=== PATIENT | male | born 1965 | race Caucasian/White ===

== ENCOUNTER 2017-12-07 10:52 | Inpatient (IN) | payer OTHER ==
[2017-12-07 11:05] VITALS: BMI 26.6
--- NOTE | 2017-12-07 11:07 | PDOC ---
History of Present Illness - General History Source: Patient, Family Exam Limitations: Language Barrier (Niece as loader helper sorting yard ) - History of Present Illness Initial Comments: 12/07/17 12:10 The patient is a 52 year old male with significant past medical history of tobacco smoking, pre-heart attack (Treated in in 2017) and CHF is brought to the ED accompanied by family members for evaluation of three days with progressive dry cough and SOB. As per the patients niece acting as a senior technical project manager, the patient reports the symptoms feels similar to his symptoms during his experience with pre heart attack last year. The patient reports the symptoms are aggravated when lying flat, walking short distances, and with the cold weather. The patient reports the sensation of drowning when lying flat. [place] . The patients family states he will be establishing care with Dr. Hill in about 2 weeks. The patient denies Chest pain, fever, chills. The patient denies nausea, vomiting, diaphoresis, abdominal pain, any frequency or urgency in urination, hematuria. The patient denies headache, recent illness, or recent trauma. Allergies: NKDA Social Hx: former 1ppd smoker, now 3 cigarettes daily. Meds: 75mg clopidogrel and 81mg aspirin <Odette Arias - Last Filed: 12/07/17 12:29> <Blessing Lovett - Last Filed: 12/07/17 13:47> - General Chief Complaint: Shortness of Breath Stated Complaint: DIFFICULTY BREATHING Time Seen by Provider: 12/07/17 11:07 Past History <Odette Arias - Last Filed: 12/07/17 12:29> - Past Medical History CVA: Yes (AFFECTED PTS MEMORY&BALANCE) COPD: No HTN: Yes Other medical history: PULMONARY EDEMA - Suicide/Smoking/Psychosocial Hx Smoking History: Current every day smoker Have you smoked in the past 12 months: Yes Number of Cigarettes Smoked Daily: 3 Information on smoking cessation initiated: Yes 'Breaking Loose' booklet given: 12/07/17 <Blessing Lovett - Last Filed: 12/07/17 13:47> - Past Medical History Allergies/Adverse Reactions: Allergies Allergy/AdvReac Type Severity Reaction Status Date / Time No Known Allergies Allergy Verified 12/07/17 10:59 Home Medications: Ambulatory Orders Aspirin [ASA -] 81 mg PO DAILY 12/07/17 Clopidogrel Bisulfate [Plavix] 75 mg PO DAILY 12/07/17 Review of Systems - Review of Systems Able to Perform ROS?: Yes Comments:: 12/07/17 12:10 GENERAL/CONSTITUTIONAL: No fever or chills. No weakness. HEAD, EYES, EARS, NOSE AND THROAT: No change in vision. No ear pain or discharge. No sore throat. CARDIOVASCULAR: (+) SOB. No chest pain RESPIRATORY: (+) cough and orthopnea and dyspnea on exertion. No wheezing, or hemoptysis. GASTROINTESTINAL: No nausea, vomiting, diarrhea or constipation. GENITOURINARY: No dysuria, frequency, or change in urination. MUSCULOSKELETAL: No joint or muscle swelling or pain. No neck or back pain. SKIN: No rash NEUROLOGIC: No headache, vertigo, loss of consciousness, or change in strength/ sensation. ENDOCRINE: No increased thirst. No abnormal weight change. HEMATOLOGIC/LYMPHATIC: No anemia, easy bleeding, or history of blood clots. ALLERGIC/IMMUNOLOGIC: No hives or skin allergy. <Odette Arias - Last Filed: 12/07/17 12:29> *Physical Exam - Vital Signs Last Vital Signs Temp Pulse Resp BP Pulse Ox 97.9 F 50 L 23 120/87 95 12/07/17 10:59 12/07/17 10:59 12/07/17 10:59 12/07/17 10:59 12/07/17 11:57 - Physical Exam Comments: 12/07/17 12:10 GENERAL: Awake, alert, and fully oriented, Mild acute distress HEAD: No signs of trauma EYES: PERRLA, EOMI, sclera anicteric, conjunctiva clear ENT: Auricles normal inspection, hearing grossly normal, nares patent, oropharynx clear without exudates. Moist mucosa NECK: Normal ROM, supple, no lymphadenopathy, JVD, or masses LUNGS: (+) 3-4 word sentence. Increased work of breathing. Breath sounds equal, clear to auscultation bilaterally. No wheezes, and no crackles HEART: Regular rate and rhythm, normal S1 and S2, no murmurs, rubs or gallops ABDOMEN: (+) obese. Soft, nontender, normoactive bowel sounds. No guarding, no rebound. No masses EXTREMITIES: (+) 1+ pitting edema b/l LE at mid calf.. Normal range of motion. No clubbing or cyanosis. No cords, erythema, or tenderness NEUROLOGICAL: Cranial nerves II through XII grossly intact. Normal speech. SKIN: Warm, Dry, normal turgor, no rashes or lesions noted. <Odette Arias - Last Filed: 12/07/17 12:29> - Vital Signs Last Vital Signs Temp Pulse Resp BP Pulse Ox 97.9 F 50 L 23 120/87 97 12/07/17 10:59 12/07/17 10:59 12/07/17 10:59 12/07/17 10:59 12/07/17 10:59 <Blessing Lovett - Last Filed: 12/07/17 13:47> Heart Score/ECG Review - ECG Intrepretation Comment:: 12/07/17 12:29 The EKG was read by Dr. Lovett at 12:13 PM Sinus rhythm with frequent premature ventricular complexes Vent rate: 89 bpm [place] interval: 194 ms QTc: 484 ms <Odette Arias - Last Filed: 12/07/17 12:29> ED Treatment Course - LABORATORY CBC & Chemistry Diagram: 12/07/17 11:30 12/07/17 11:30 <Odette Arias - Last Filed: 12/07/17 12:29> - LABORATORY CBC & Chemistry Diagram: 12/07/17 11:30 12/07/17 11:30 <Blessing Lovett - Last Filed: 12/07/17 13:47> Medical Decision Making - Medical Decision Making 12/07/17 12:18 Pt presents to the ED complaining of a three day history of progressively worsening shortness of breath, BLACK and orthopnea. History of CHF diagnosed in the DR, lost to medical follow up. Patient is visibly short of breath and is edematous, but is normotensive. Differential includes CHF exacerbation, less likely PNA, COPD exacerbation, ACS. Will check labs and CXR, likely treat with [place] admit for treatment and work up of acute shortness of breath. <Blessing Lovett - Last Filed: 12/07/17 13:47> *DC/Admit/Observation/Transfer - Attestations Scribe Attestion: 12/07/17 12:11 Documentation prepared by Odette Arias, acting as medical terminologist for Blessing Lovett MD. <Odette Arias - Last Filed: 12/07/17 12:29> - Discharge Dispostion Admit: Yes <Blessing Lovett - Last Filed: 12/07/17 13:47> Diagnosis at time of Disposition: Congestive heart failure (CHF) Qualifiers: Heart failure type: unspecified Heart failure chronicity: acute on chronic Qualified Code(s): I50.9 - Heart failure, unspecified - Discharge Dispostion Condition at time of disposition: Good - Referrals Referrals: Bebeto Leon MD [Primary Care Provider] - - Patient Instructions - Post Discharge Activity
[2017-12-07 11:52] LABS: BASO % 0.8 % (0-2.0); EOS % 0.5 % (0-4.5); HEMATOCRIT 36.5 % (35.4-49); HEMOGLOBIN 11.9 GM/dL (11.7-16.9); LYMPH % 27.3 % (8-40); MCH 27.2 pg (25.7-33.7); MCHC 32.6 g/dl (32.0-35.9); MEAN CELL VOLUME 83.6 fl (80-96); MONO % 12.7 % (3.8-10.2); NEUT % 58.7 % (42.8-82.8); PLATELET COUNT 223 K/MM3 (134-434); RBC 4.36 M/mm3 (4.00-5.60); RDW 15.6 % (11.9-15.9); WHITE BLOOD COUNT 5.9 K/mm3 (4.0-10.0)
[2017-12-07 12:45] LABS: ALBUMIN 3.1 g/dl (3.4-5.0); ANION GAP 6 (8-16); BILIRUBIN,TOTAL 0.7 mg/dL (0.2-1.0); BLOOD UREA NITROGEN 12 mg/dL (7-18); CALCIUM 8.8 mg/dL (8.5-10.1); CHLORIDE 103 mmol/L (98-107); CO2 28 mmol/L (21-32); GLUCOSE,RANDOM 95 mg/dL (74-106); POTASSIUM 4.6 mmol/L (3.5-5.1); SGOT/AST 25 U/L (15-37); SGPT/ALT 36 U/L (12-78); SODIUM 137 mmol/L (136-145); TOT PROT 8.4 g/dl (6.4-8.2)
[2017-12-07 12:48] LABS: ALK PHOS 73 U/L (45-117); N-TERMINAL BNP 2245.41 pg/ml (5-125)
[2017-12-07] MEDS ORDERED: FUROSEMIDE 40 MG/4 ML INJECTABLE VIAL IVPUSH ONE ×3 (12:58→18:00)
[2017-12-07] MEDS ORDERED: FUROSEMIDE 40 MG/4 ML INJECTABLE VIAL ONE (13:15)
--- NOTE | 2017-12-07 13:17 | HP ---
Admitting History and Physical - Primary Care Physician PCP: Bebeto Leon - Admission Chief Complaint: sob, cough, le edema History of Present Illness: This is a 52 year old male with HTN, active smoker, history of pulmonary edema and ?LA requiring coding, CVA x2 05/2016, 05/2017 in [facility], presented to the ED after 3 days of worsening sob, cough and lower ext edema. He has not had an extra salt in his diet or increased water intake. No sick person contacts. He was scheduled to see his pcp later next week. Currently, he denies chest pain , palpitations, abdominal pain, n/v. He appears mildly tachypneic and has a GRISSOM. 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: CVA Cardiovascular: Yes: HTN, LA Pulmonary: Yes: Other (pulmonary edema) - Smoking History Smoking history: Current every day smoker Have you smoked in the past 12 months: Yes Aproximately how many cigarettes per day: 3 - Alcohol/Substance Use Hx Alcohol Use: No - Social History Usual Living Arrangement: Yes: With Spouse ADL: Independent Home Medications - Allergies Allergies/Adverse Reactions: Allergies Allergy/AdvReac Type Severity Reaction Status Date / Time No Known Allergies Allergy Verified 12/07/17 10:59 - Home Medications Home Medications: Ambulatory Orders Aspirin [ASA -] 81 mg PO DAILY 12/07/17 Clopidogrel Bisulfate [Plavix] 75 mg PO DAILY 12/07/17 Review of Systems - Review of Systems Constitutional: reports: No Symptoms Eyes: reports: No Symptoms HENT: reports: No Symptoms Neck: reports: No Symptoms Cardiovascular: reports: Shortness of Breath Respiratory: reports: Cough, SOB, SOB on Exertion Gastrointestinal: reports: No Symptoms Genitourinary: reports: No Symptoms Musculoskeletal: reports: No Symptoms Integumentary: reports: No Symptoms Neurological: reports: No Symptoms Endocrine: reports: No Symptoms Hematology/Lymphatic: reports: No Symptoms Psychiatric: reports: No Symptoms Physical Examination Vital Signs: Vital Signs Temperature 97.9 F 12/07/17 10:59 Pulse Rate 89 12/07/17 12:14 Respiratory Rate 26 H 12/07/17 12:14 Blood Pressure 129/77 12/07/17 12:14 O2 Sat by Pulse Oximetry (%) 100 12/07/17 12:14 Constitutional: Yes: Well Nourished Eyes: Yes: Conjunctiva Clear HENT: Yes: Atraumatic Cardiovascular: Yes: Regular Rate and Rhythm, S1, S2 Respiratory: Yes: Cough, Diminished, Rhonchi (L base) Gastrointestinal: Yes: Normal Bowel Sounds, Soft Musculoskeletal: Yes: WNL Extremities: Yes: WNL Edema: Yes Edema: LLE: 2+, RLE: 2+ Peripheral Pulses WNL: Yes Neurological: Yes: Alert, Oriented, Cran Nerves II-XII Intact Labs: CBC, BMP 12/07/17 11:30 12/07/17 11:30 Imaging - Results Chest X-ray: Report Reviewed (congestive changes), Image Reviewed Problem List - Problems (1) Congestive heart failure (CHF) Code(s): I50.9 - HEART FAILURE, UNSPECIFIED Qualifiers: Heart failure type: unspecified Heart failure chronicity: acute on chronic Qualified Code(s): I50.9 - Heart failure, unspecified Assessment/Plan Assessment: 52 year old male with worsening sob and cough x3 days Plan: 1. Acute CHF exacerbation - Lasix 40mg IV in ED - Give additional 40meq @ 1800 - Start lasix 40mg daily ivp - Supplemental o2 spo2 goal >92% - Daily weights - Strict I'o's - ECHO - Cardiology consult 2. ? LA in past, presumed CAD - Plavix - ASA 3. SOB - Likely due to chf exacerbation - Will hold off on steroids and antibiotics at this time, no leukocytosis no fever 4. DVT - Lovenox sq Visit type - Emergency Visit Emergency Visit: Yes ED Registration Date: 12/07/17 Care time: The patient presented to the Emergency Department on the above date and was hospitalized for further evaluation of their emergent condition. - New Patient This patient is new to me today: Yes Date on this admission: 12/07/17 - Critical Care Critical Care patient: No Hospitalist Screening - Colonoscopy Questionnaire Colonoscopy Questionnaire: Colonoscopy Questionnaire - Patient: 50 - 75 years old and never had a screening colonoscopy: Unknown History of colon or rectal polyps, or CA: Unknown History of IBD, Crohn's disease or UC: Unknown History of abdominal radiation therapy as a child: Unknown - Relative: 1 with colon or rectal CA, or polyps at age 60 or younger: Unknown Colon or rectal CA diagnosed at age 45 or younger: Unknown Multiple relatives with colon or rectal CA: Unknown - Outcome: Screening Result: Negative Screen
--- NOTE | 2017-12-07 13:18 | EKG ---
Test Reason : Blood Pressure : / mmHG Vent. Rate : 089 BPM Atrial Rate : 089 BPM P-R Int : 194 ms QRS Dur : 114 ms QT Int : 398 ms P-R-T Axes : 052 -03 076 degrees QTc Int : 484 ms SINUS RHYTHM WITH FREQUENT PREMATURE VENTRICULAR COMPLEXES LEFT ATRIAL ENLARGEMENT POSSIBLE INFERIOR INFARCT , AGE UNDETERMINED ANTEROLATERAL INFARCT , AGE UNDETERMINED ABNORMAL ECG NO PREVIOUS ECGS AVAILABLE Confirmed by CASE ARTEAGA, BRAYDEN ([id number]) on 12/07/2017 1:18:03 PM Referred By: Confirmed By:BRAYDEN WILLOUGHBY MD
[2017-12-07] MEDS ORDERED: AZITHROMYCIN IVPB 500 MG in DEXTROSE 5%-WATER - 250 ML IVPB ONE (14:40)
[2017-12-07] MEDS ORDERED: methylPREDNISolone NA SUCC 125 MG/2 ML VIAL IVPB SCH (14:45)
[2017-12-07] MEDS: ALBUTEROL SO4 2.5/IPRATROPIUM 0.5 INH SOL 3 ML VIAL.NEB. NEB PRN ×2 (15:45→20:54)
[2017-12-07 18:25] LABS: URINE APPEARANCE CLEAR; URINE BILIRUBIN NEGATIVE (<2.0 mg/dL); URINE BLOOD NEGATIVE (NEGATIVE); URINE COLOR COLORLESS; URINE GLUCOSE (UA) NEGATIVE (NEGATIVE); URINE KETONE NEGATIVE (NEGATIVE); URINE LEUK ESTERASE NEGATIVE (NEGATIVE); URINE NITRITE NEGATIVE (NEGATIVE); URINE PROTEIN NEGATIVE (NEGATIVE); URINE UROBILINOGEN NEGATIVE mg/dL (0.2-1.0)
[2017-12-08] MEDS: ALBUTEROL SO4 2.5/IPRATROPIUM 0.5 INH SOL 3 ML VIAL.NEB. NEB PRN ×2 (05:52→20:50)
[2017-12-08] MEDS ORDERED: FUROSEMIDE 40 MG/4 ML INJECTABLE VIAL IVPUSH SCH ×2 (06:00→10:00)
[2017-12-08 07:59] LABS: ALBUMIN 3.1 g/dl (3.4-5.0); ANION GAP 7 (8-16); BLOOD UREA NITROGEN 18 mg/dL (7-18); CALCIUM 8.7 mg/dL (8.5-10.1); CHLORIDE 102 mmol/L (98-107); CHOLESTEROL 138 mg/dL (50-200); CO2 28 mmol/L (21-32); GLUCOSE,RANDOM 92 mg/dL (74-106); LDL CHOLESTEROL (ONLY SJRH) 109 mg/dL (5-100); MAGNESIUM 2.1 mg/dL (1.8-2.4); PHOSPHOROUS 4.7 mg/dL (2.5-4.9); POTASSIUM 3.9 mmol/L (3.5-5.1); SGOT/AST 23 U/L (15-37); SGPT/ALT 37 U/L (12-78); SODIUM 137 mmol/L (136-145); TRIGLYCERIDES 59 mg/dL (35-160)
[2017-12-08 08:01] LABS: ALK PHOS 78 U/L (45-117); BILIRUBIN,TOTAL 0.9 mg/dL (0.2-1.0); CREATININE 1.1 mg/dL (0.7-1.3); HDL CHOLESTEROL 26 mg/dL (40-60); TOT PROT 8.3 g/dl (6.4-8.2)
[2017-12-08 08:50] LABS: BASO % 0.8 % (0-2.0); EOS % 1.1 % (0-4.5); HEMATOCRIT 38.2 % (35.4-49); HEMOGLOBIN 12.4 GM/dL (11.7-16.9); LYMPH % 22.6 % (8-40); MCH 27.1 pg (25.7-33.7); MCHC 32.5 g/dl (32.0-35.9); MEAN CELL VOLUME 83.6 fl (80-96); MEAN PLT VOLUME 8.5 fl (7.5-11.1); MONO % 13.8 % (3.8-10.2); NEUT % 61.7 % (42.8-82.8); PLATELET COUNT 236 K/MM3 (134-434); RBC 4.57 M/mm3 (4.00-5.60); RDW 15.7 % (11.9-15.9); WHITE BLOOD COUNT 6.7 K/mm3 (4.0-10.0)
--- NOTE | 2017-12-08 09:42 | PN ---
Physical Exam: SUBJECTIVE: Patient seen and examined. He feels better, still with cough. Breathing improved, stable today. OBJECTIVE: Vital Signs Period Temp Pulse Resp BP Sys/Jones Pulse Ox Last 24 Hr 97.4 F-99.4 F 50-99 18-26 119-141/58-87 95-100 PE Neuro: alert, awake, cn 2-12intact Pulm: + cough, l base crackles + NC CV: s1 s2 rrr no mrg Abd: s nt nd + bs Ext: + 1 le edema, warm Laboratory Results - last 24 hr 12/07/17 12/08/17 12/08/17 17:00 06:00 06:00 WBC 6.7 RBC 4.57 Hgb 12.4 Hct 38.2 MCV 83.6 MCH 27.1 MCHC 32.5 RDW 15.7 Plt Count 236 MPV 8.5 Neutrophils % 61.7 Lymphocytes % 22.6 Monocytes % 13.8 H Eosinophils % 1.1 D Basophils % 0.8 Sodium 137 Potassium 3.9 Chloride 102 Carbon Dioxide 28 Anion Gap 7 L BUN 18 D Creatinine 1.1 Creat Clearance w eGFR > 60 Random Glucose 92 Hemoglobin A1c % Calcium 8.7 Phosphorus 4.7 Magnesium 2.1 Total Bilirubin 0.9 D AST 23 ALT 37 Alkaline Phosphatase 78 Creatine Kinase Creatine Kinase Index CK-MB (CK-2) Troponin I B-Natriuretic Peptide Total Protein 8.3 H Albumin 3.1 L Triglycerides 59 Cholesterol 138 Total LDL Cholesterol 109 H HDL Cholesterol 26 L Urine Color Colorless Urine Appearance Clear Urine pH 7.0 Ur Specific [place] 1.005 Urine Protein Negative Urine Glucose (UA) Negative Urine Ketones Negative Urine Blood Negative Urine Nitrite Negative Urine Bilirubin Negative Urine Urobilinogen Negative Ur Leukocyte Esterase Negative 12/08/17 06:00 Hemoglobin A1c % 6.6 H Active Medications Generic Name Dose Route Start Last Admin Trade Name Freq PRN Reason Stop Dose Admin Acetaminophen 650 mg 12/07/17 15:18 Tylenol - PO Q4H PRN PAIN LEVEL 4 - 6 Albuterol/Ipratropium 1 amp 12/07/17 15:18 12/08/17 05:52 Duoneb - NEB 1 amp Q4H PRN Administration SHORTNESS OF BREATH Aspirin 81 mg 12/08/17 10:00 Asa - PO DAILY [facility] Clopidogrel Bisulfate 75 mg 12/08/17 10:00 Plavix - PO DAILY [facility] Enoxaparin Sodium 40 mg 12/08/17 10:00 Lovenox - SQ DAILY [facility] Assessment: 52 year old male with worsening sob and cough x3 days Plan: 1. Acute CHF exacerbation - Weight down - Increase lasix 40mg BID - Supplemental o2 spo2 goal >92% - Daily weights - Strict I'o's - ECHO - Cardiology consult 2. ? LA in past, presumed CAD - Plavix - ASA - Trops x2 flat 3. SOB/cough - Likely due to chf exacerbation - Will hold off on steroids and antibiotics at this time, no leukocytosis no fever - Duonebs 4. Hx of CVA - ASA, plavix 5. HLD - Start lipitor 20mg HS 6. DVT - Lovenox sq Problem List - Problems (1) Congestive heart failure (CHF) Code(s): I50.9 - HEART FAILURE, UNSPECIFIED Qualifiers: Heart failure type: unspecified Heart failure chronicity: acute on chronic Qualified Code(s): I50.9 - Heart failure, unspecified Visit type - Emergency Visit Emergency Visit: Yes ED Registration Date: 12/07/17 Care time: The patient presented to the Emergency Department on the above date and was hospitalized for further evaluation of their emergent condition. - New Patient This patient is new to me today: No - Critical Care Critical Care patient: No
--- NOTE | 2017-12-08 09:47 | CON.CARD ---
Consult Consult Specialty:: Cardiology Referred by:: Hospitalist Reason for Consultation:: Cardiac evaluation - History of Present Illness Chief Complaint: Shortness of breath History of Present Illness: Patient is a 52 year old male who hails from [facility] [place] with underlying history of hypertension, cerebrovascular disease who was at [place] [facility] where he was admitted to the hospital with pulmonary edema. Exact story of the hospitalization and what transpired is unclear as he is a poor historian. It is unclear whether he had an NM or other cardiac issues. Currently, he is admitted with worsening shortness of breath, cough and lower extremity edema. He was given IV Lasix. Currently he denies chest pain or palpitations. He denies paroxysmal nocturnal dyspnea or orthopnea. He denies fever or chills. He denies nausea, vomiting, diarrhea or abdominal pain. He denies headache or lightheadedness. - History Source History Provided By: Medical Record Limitations to Obtaining History: Poor Historian - Past Medical History PROJECT BUYER: Yes: CVA Cardio/Vascular: Yes: HTN, NM Pulmonary: Yes: Other (pulmonary edema) - Alcohol/Substance Use Hx Alcohol Use: No - Smoking History Smoking history: Current every day smoker Have you smoked in the past 12 months: Yes Aproximately how many cigarettes per day: 3 - Social History ADL: Independent Home Medications - Allergies Allergies/Adverse Reactions: Allergies Allergy/AdvReac Type Severity Reaction Status Date / Time No Known Allergies Allergy Verified 12/07/17 10:59 - Home Medications Home Medications: Ambulatory Orders Aspirin [ASA -] 81 mg PO DAILY 12/07/17 Clopidogrel Bisulfate [Plavix] 75 mg PO DAILY 12/07/17 Seroquel 100 mg PO DAILY 12/08/17 Family Disease History - Family Disease History Family History: Unable to Obtain Review of Systems - Review of Systems Constitutional: denies: Chills, Fever Cardiovascular: reports: Shortness of Breath. denies: Chest Pain, Palpitations Respiratory: reports: SOB. denies: Cough, Hemoptysis, Orthopnea, PND Gastrointestinal: denies: Abdominal Pain, Constipation, Diarrhea, Melena, Nausea , Rectal Bleeding, Vomiting Neurological: denies: Dizziness, Headache, Seizure, Syncope Vital Signs: Vital Signs Temperature 97.9 F 12/08/17 05:26 Pulse Rate 80 12/08/17 05:26 Respiratory Rate 18 12/08/17 05:26 Blood Pressure 119/58 12/08/17 05:26 O2 Sat by Pulse Oximetry (%) 97 12/07/17 20:37 Neck: Yes: Supple Respiratory: Yes: Diminished Gastrointestinal: Yes: Normal Bowel Sounds, Soft. No: Tenderness Cardiovascular: Yes: Regular Rate and Rhythm JVD: No Carotid Bruit: No PMI: Non-Displaced Heart Sounds: Yes: S1, S2. No: Gallop Edema: Yes Edema: LLE: Trace, RLE: Trace - Other Data Labs, Other Data: CBC, BMP 12/08/17 06:00 12/08/17 06:00 Troponin, BNP 12/07/17 12/07/17 11:30 16:45 Troponin I 0.07 H 0.07 H B-Natriuretic Peptide 2245.41 H Laboratory Results - last 24 hr 12/07/17 12/07/17 12/07/17 11:30 11:30 16:45 WBC 5.9 RBC 4.36 Hgb 11.9 Hct 36.5 MCV 83.6 MCH 27.2 MCHC 32.6 RDW 15.6 Plt Count 223 MPV 8.0 Neutrophils % 58.7 Lymphocytes % 27.3 Monocytes % 12.7 H Eosinophils % 0.5 Basophils % 0.8 Sodium 137 Potassium 4.6 Chloride 103 Carbon Dioxide 28 Anion Gap 6 L BUN 12 Creatinine 1.0 Creat Clearance w eGFR > 60 Random Glucose 95 Hemoglobin A1c % Calcium 8.8 Phosphorus Magnesium Total Bilirubin 0.7 AST 25 ALT 36 Alkaline Phosphatase 73 Creatine Kinase 236 238 Creatine Kinase Index 0.7 0.7 CK-MB (CK-2) 1.856 1.679 Troponin I 0.07 H 0.07 H B-Natriuretic Peptide 2245.41 H Total Protein 8.4 H Albumin 3.1 L Triglycerides Cholesterol Total LDL Cholesterol HDL Cholesterol Urine Color Urine Appearance Urine pH Ur Specific [place] Urine Protein Urine Glucose (UA) Urine Ketones Urine Blood Urine Nitrite Urine Bilirubin Urine Urobilinogen Ur Leukocyte Esterase 12/07/17 12/08/17 12/08/17 17:00 06:00 06:00 WBC 6.7 RBC 4.57 Hgb 12.4 Hct 38.2 MCV 83.6 MCH 27.1 MCHC 32.5 RDW 15.7 Plt Count 236 MPV 8.5 Neutrophils % 61.7 Lymphocytes % 22.6 Monocytes % 13.8 H Eosinophils % 1.1 D Basophils % 0.8 Sodium 137 Potassium 3.9 Chloride 102 Carbon Dioxide 28 Anion Gap 7 L BUN 18 D Creatinine 1.1 Creat Clearance w eGFR > 60 Random Glucose 92 Hemoglobin A1c % Calcium 8.7 Phosphorus 4.7 Magnesium 2.1 Total Bilirubin 0.9 D AST 23 ALT 37 Alkaline Phosphatase 78 Creatine Kinase Creatine Kinase Index CK-MB (CK-2) Troponin I B-Natriuretic Peptide Total Protein 8.3 H Albumin 3.1 L Triglycerides 59 Cholesterol 138 Total LDL Cholesterol 109 H HDL Cholesterol 26 L Urine Color Colorless Urine Appearance Clear Urine pH 7.0 Ur Specific [place] 1.005 Urine Protein Negative Urine Glucose (UA) Negative Urine Ketones Negative Urine Blood Negative Urine Nitrite Negative Urine Bilirubin Negative Urine Urobilinogen Negative Ur Leukocyte Esterase Negative Sinus rhythm with PVCs Imaging - Results Chest X-ray: Report Reviewed (Large heart, congestive changes) EKG: Report Reviewed Problem List - Problems (1) Congestive heart failure (CHF) Code(s): I50.9 - HEART FAILURE, UNSPECIFIED Qualifiers: Heart failure type: combined systolic and diastolic Heart failure chronicity: acute on chronic Qualified Code(s): I50.43 - Acute on chronic combined systolic (congestive) and diastolic (congestive) heart failure (2) Cerebrovascular disease Code(s): I67.9 - CEREBROVASCULAR DISEASE, UNSPECIFIED (3) Demand ischemia Code(s): I24.8 - OTHER FORMS OF ACUTE ISCHEMIC HEART DISEASE Assessment/Plan 1. Clinical presentation suggests acute on chronic LV systolic/diastolic failure with elevated BNP - to be determined 2. Cerebrovascular disease/CVA 3. Mildly elevated troponin suggests demand ischemia PLAN: 1. Trend troponin 2. Continue Lasix IV and monitor I/Os, electrolytes and daily weight 3. Continue ASA and Plavix for now until further instruction 4. Add low dose beta hubert (Carvedilol as tolerated) 5. Transthoracic echocardiography to assess LV/RV and valvular function 6. Consider further cardiac work up including nuclear myocardial perfusion imaging at some point 7. Consider statin therapy Further plans are to follow Leonidas Palm MD
[2017-12-08] MEDS ORDERED: AZITHROMYCIN IVPB 250 MG in DEXTROSE 5%-WATER - 250 ML IVPB SCH (10:00)
[2017-12-08] MEDS: ASPIRIN 81 MG CHEWABLE TABLETS PO SCH (10:08)
[2017-12-08] MEDS: ENOXAPARIN NA (PORCINE) 40 MG/0.4 ML DISP.SYRIN SQ SCH (10:09)
[2017-12-08] MEDS: CLOPIDOGREL BISULFATE 75 MG TABLET (FP) PO SCH (10:09)
[2017-12-08] MEDS: CARVEDILOL 3.125 MG TABLET (FP) PO SCH ×2 (10:37→21:00)
[2017-12-08] MEDS: FUROSEMIDE 40 MG/4 ML INJECTABLE VIAL IVPUSH SCH (13:24)
[2017-12-08] MEDS: ATORVASTATIN CA 20 MG TABLET (FP) PO SCH (21:00)
[2017-12-09] MEDS: FUROSEMIDE 40 MG/4 ML INJECTABLE VIAL IVPUSH SCH ×2 (06:00→14:33)
[2017-12-09 06:53] LABS: ANION GAP 10 (8-16); BLOOD UREA NITROGEN 21 mg/dL (7-18); CALCIUM 9.1 mg/dL (8.5-10.1); CHLORIDE 101 mmol/L (98-107); CO2 27 mmol/L (21-32); GLUCOSE,RANDOM 97 mg/dL (74-106); POTASSIUM 4.3 mmol/L (3.5-5.1); SODIUM 138 mmol/L (136-145)
[2017-12-09 06:56] LABS: CREATININE 1.1 mg/dL (0.7-1.3)
[2017-12-09] MEDS ORDERED: REGADENOSON 0.4 MG/5 ML PRE-FILLED SYRINGE IVPUSH ONE ×2 (10:15→11:20)
--- NOTE | 2017-12-09 10:16 | PN ---
Progress Note, Physician Chief Complaint: Seen during stress testing Intermittent dyspnea History of Present Illness: Patient was seen and examined. Awake and alert. Chart was reviewed Denies chest pain. Intermittent SOB. No palpitations - Current Medication List Current Medications: Active Medications Acetaminophen (Tylenol -) 650 mg PO Q4H PRN PRN Reason: PAIN LEVEL 4 - 6 Albuterol/Ipratropium (Duoneb -) 1 amp NEB Q4H PRN PRN Reason: SHORTNESS OF BREATH Last Admin: 12/08/17 20:50 Dose: 1 amp Aspirin (Asa -) 81 mg PO DAILY [facility] Last Admin: 12/08/17 10:08 Dose: 81 mg Atorvastatin Calcium (Lipitor -) 20 mg PO HS [facility] Last Admin: 12/08/17 21:00 Dose: 20 mg Carvedilol (Coreg -) 3.125 mg PO BID [facility] Last Admin: 12/08/17 21:00 Dose: 3.125 mg Clopidogrel Bisulfate (Plavix -) 75 mg PO DAILY [facility] Last Admin: 12/08/17 10:09 Dose: 75 mg Enoxaparin Sodium (Lovenox -) 40 mg SQ DAILY [facility] Last Admin: 12/08/17 10:09 Dose: 40 mg Furosemide (Lasix Injection -) 40 mg IVPUSH BID@0600,1400 [facility] Last Admin: 12/09/17 06:00 Dose: 40 mg Regadenoson (Lexiscan) 0.4 mg IVPUSH ONCE ONE Stop: 12/09/17 10:16 - Objective Vital Signs: Vital Signs Temperature 98.1 F 12/09/17 06:00 Pulse Rate 78 12/09/17 06:00 Respiratory Rate 20 12/09/17 06:00 Blood Pressure 112/58 12/09/17 06:00 O2 Sat by Pulse Oximetry (%) 100 12/08/17 21:00 HENT: Yes: Atraumatic Neck: Yes: Supple Cardiovascular: Yes: Regular Rate and Rhythm, S1, S2 Respiratory: Yes: Diminished Gastrointestinal: Yes: Normal Bowel Sounds, Soft. No: Tenderness Edema: Yes Edema: LLE: Trace, RLE: Trace Additional Findings/Remarks: - Review of Systems Constitutional: denies: Chills, Fever Cardiovascular: reports: Shortness of Breath. denies: Chest Pain, Palpitations Respiratory: reports: SOB. denies: Cough, Hemoptysis, Orthopnea, PND Gastrointestinal: denies: Abdominal Pain, Constipation, Diarrhea, Melena, Nausea , Rectal Bleeding, Vomiting Neurological: denies: Dizziness, Headache, Seizure, Syncope Labs: CBC, BMP 12/08/17 06:00 12/09/17 06:00 Problem List - Problems (1) Congestive heart failure (CHF) Code(s): I50.9 - HEART FAILURE, UNSPECIFIED Qualifiers: Heart failure type: combined systolic and diastolic Heart failure chronicity: acute on chronic Qualified Code(s): I50.43 - Acute on chronic combined systolic (congestive) and diastolic (congestive) heart failure (2) Cerebrovascular disease Code(s): I67.9 - CEREBROVASCULAR DISEASE, UNSPECIFIED (3) Demand ischemia Code(s): I24.8 - OTHER FORMS OF ACUTE ISCHEMIC HEART DISEASE (4) Dilated cardiomyopathy Code(s): I42.0 - DILATED CARDIOMYOPATHY (5) Mitral valve regurgitation Code(s): I34.0 - NONRHEUMATIC MITRAL (VALVE) INSUFFICIENCY Qualifiers: Cardiac valve disease etiology: nonrheumatic Qualified Code(s): I34.0 - Nonrheumatic mitral (valve) insufficiency Assessment/Plan 1. Clinical presentation suggests acute on chronic LV systolic/diastolic failure with elevated BNP 2. Dilated cardiomyopathy with severe LV systolic dysfunction 3. Clinical presentation suggests coronary artery disease 4. Cerebrovascular disease/CVA 5. Mildly elevated troponin suggests demand ischemia PLAN: 1. Trend troponin 2. Continue Lasix IV and monitor I/Os, electrolytes and daily weight 3. Continue ASA and Plavix for now until further instruction 4. Transthoracic echocardiography reveals severe LV systolic dysfunction with global hypokinesia (LVEF 15-20%) and LV dilatation, moderate to severe LA dilatation, moderate RA dilatation, moderate mitral valve regurgitation 5. Nuclear myocardial perfusion imaging reveals severe LV systolic dysfunction ( LVEF 15%), moderate anteroapical and inferior ischemia with apical infarct 6. Up-titrate Carvedilol 7. Add ACEI or ARB - consider Valsartan and up-titrate 8. Add Spironolactone 9. Patient will need further cardiac evaluation including cardiac catheterization and depending on result decide on revascularization if myocardial tissues are viable. If LVEF remains below 35%, patient may need ICD implant following the the guideline in regards to timing. Patient may also need LifeVest Further plans are to follow Leonidas Palm MD
[2017-12-09] MEDS: ASPIRIN 81 MG CHEWABLE TABLETS PO SCH (13:32)
[2017-12-09] MEDS: CARVEDILOL 3.125 MG TABLET (FP) PO SCH ×2 (13:32→21:40)
[2017-12-09] MEDS: CLOPIDOGREL BISULFATE 75 MG TABLET (FP) PO SCH (13:33)
[2017-12-09] MEDS: ENOXAPARIN NA (PORCINE) 40 MG/0.4 ML DISP.SYRIN SQ SCH (13:33)
--- NOTE | 2017-12-09 16:35 | PN ---
Progress Note (short form) - Note Progress Note: Subjective: The patient was seen and examined at the bedside, he reports feeling good at this time. He denies any chest pain, palpitations Current Medications Generic Name Dose Route Start Last Admin Trade Name Freq PRN Reason Stop Dose Admin Acetaminophen 650 mg 12/07/17 15:18 Tylenol - PO Q4H PRN PAIN LEVEL 4 - 6 Albuterol/Ipratropium 1 amp 12/07/17 15:18 12/08/17 20:50 Duoneb - NEB 1 amp Q4H PRN Administration SHORTNESS OF BREATH Aspirin 81 mg 12/08/17 10:00 12/09/17 13:32 Asa - PO 81 mg DAILY [facility] Administration Atorvastatin Calcium 20 mg 12/08/17 22:00 12/08/17 21:00 Lipitor - PO 20 mg HS [facility] Administration Carvedilol 3.125 mg 12/08/17 10:00 12/09/17 13:32 Coreg - PO 3.125 mg BID [facility] Administration Clopidogrel Bisulfate 75 mg 12/08/17 10:00 12/09/17 13:33 Plavix - PO 75 mg DAILY [facility] Administration Enoxaparin Sodium 40 mg 12/08/17 10:00 12/09/17 13:33 Lovenox - SQ 40 mg DAILY [facility] Administration Furosemide 40 mg 12/08/17 14:00 12/09/17 14:33 Lasix Injection - IVPUSH 40 mg BID@0600,1400 [facility] Administration Objective: Vital Signs Period Temp Pulse Resp BP Sys/Jones Pulse Ox Last 24 Hr 98.1 F-98.9 F 69-78 18-20 91-138/50-93 93-100 Physical Exam: General: NAD, A&Ox3 Lungs: CTA bilaterally Heart: RRR, S1S2 Abd: Soft, non-tender, non-distended. Normoactive bowel sounds Ext: Warm, well-perfused. 2+ DP/PT bilaterally Neuro: CN 2-12 intact CBCD WBC 6.7 K/mm3 (4.0-10.0) 12/08/17 06:00 RBC 4.57 M/mm3 (4.00-5.60) 12/08/17 06:00 Hgb 12.4 GM/dL (11.7-16.9) 12/08/17 06:00 Hct 38.2 % (35.4-49) 12/08/17 06:00 MCV 83.6 fl (80-96) 12/08/17 06:00 MCHC 32.5 g/dl (32.0-35.9) 12/08/17 06:00 RDW 15.7 % (11.9-15.9) 12/08/17 06:00 Plt Count 236 K/MM3 (134-434) 12/08/17 06:00 MPV 8.5 fl (7.5-11.1) 12/08/17 06:00 CMP Sodium 138 mmol/L (136-145) 12/09/17 06:00 Potassium 4.3 mmol/L (3.5-5.1) 12/09/17 06:00 Chloride 101 mmol/L (98-107) 12/09/17 06:00 Carbon Dioxide 27 mmol/L (21-32) 12/09/17 06:00 Anion Gap 10 (8-16) 12/09/17 06:00 BUN 21 mg/dL (7-18) H 12/09/17 06:00 Creatinine 1.1 mg/dL (0.7-1.3) 12/09/17 06:00 Creat Clearance w eGFR > 60 (>60) 12/08/17 06:00 Random Glucose 97 mg/dL (74-106) 12/09/17 06:00 Calcium 9.1 mg/dL (8.5-10.1) 12/09/17 06:00 Total Bilirubin 0.9 mg/dL (0.2-1.0) D 12/08/17 06:00 AST 23 U/L (15-37) 12/08/17 06:00 ALT 37 U/L (12-78) 12/08/17 06:00 Alkaline Phosphatase 78 U/L (45-117) 12/08/17 06:00 Total Protein 8.3 g/dl (6.4-8.2) H 12/08/17 06:00 Albumin 3.1 g/dl (3.4-5.0) L 12/08/17 06:00 CARDIAC ENZYMES Creatine Kinase 318 IU/L (39-308) H 12/09/17 06:00 Troponin I 0.05 ng/ml (0.00-0.05) 12/09/17 06:00 Assessment: This is a 52 year old male with PMHx of HTN, active smoker, hx of pulmonary edema and [place] requiring coding?, CVA x2, who presented to the ED with worsening shortness of breath, cough, and lower extremity edema. Plan: 1) Acute severe systolic heart failure - ECHO with severely dilated LV. LVSF is severely reduced. EF 15-20%. Severe global hypokinesis of LV. Mod MR, mild TR, mild pulmonic valvular regurg - Continue Coreg with uptitration as BP tolerates - Start Spironolactone - Start Diovan - Continue Lasix - F/u stress test - Appreciate cardiology consult, discussed with Dr. Palm ECHO results 2) Hx of CVA - Continue Plavix - Continue ASA - Continue Lipitor 3) F/E/N: - Sodium controlled diet - Monitor electrolytes 4) Prophylaxis: - Lovenox 40 md sq daily 5) Dispo: - Requires continued inpatient care CODE STATUS: FULL CODE Visit type - Emergency Visit Emergency Visit: Yes ED Registration Date: 12/07/17 Care time: The patient presented to the Emergency Department on the above date and was hospitalized for further evaluation of their emergent condition. - New Patient This patient is new to me today: Yes Date on this admission: 12/09/17 - Critical Care Critical Care patient: No
[2017-12-09] MEDS: ACETAMINOPHEN 325 MG TABLET (FP) PO PRN (17:53)
[2017-12-09] MEDS: ATORVASTATIN CA 20 MG TABLET (FP) PO SCH (21:40)
[2017-12-10] MEDS: FUROSEMIDE 40 MG/4 ML INJECTABLE VIAL IVPUSH SCH ×2 (06:45→15:05)
[2017-12-10 08:15] LABS: BASO % 0.7 % (0-2.0); EOS % 1.4 % (0-4.5); HEMATOCRIT 38.9 % (35.4-49); HEMOGLOBIN 12.8 GM/dL (11.7-16.9); LYMPH % 26.2 % (8-40); MCH 27.5 pg (25.7-33.7); MEAN CELL VOLUME 83.3 fl (80-96); MEAN PLT VOLUME 8.5 fl (7.5-11.1); MONO % 16.8 % (3.8-10.2); NEUT % 54.9 % (42.8-82.8); PLATELET COUNT 262 K/MM3 (134-434); RBC 4.67 M/mm3 (4.00-5.60); RDW 15.7 % (11.9-15.9); WHITE BLOOD COUNT 5.5 K/mm3 (4.0-10.0)
[2017-12-10 08:32] LABS: CHLORIDE 102 mmol/L (98-107); POTASSIUM 4.3 mmol/L (3.5-5.1); SODIUM 136 mmol/L (136-145)
[2017-12-10 08:43] LABS: ALK PHOS 78 U/L (45-117); ANION GAP 6 (8-16); BILIRUBIN,TOTAL 0.6 mg/dL (0.2-1.0); BLOOD UREA NITROGEN 25 mg/dL (7-18); CALCIUM 8.4 mg/dL (8.5-10.1); CO2 28 mmol/L (21-32); CREATININE 1.1 mg/dL (0.7-1.3); GLUCOSE,RANDOM 93 mg/dL (74-106); SGOT/AST 19 U/L (15-37); SGPT/ALT 27 U/L (12-78)
[2017-12-10] MEDS: CLOPIDOGREL BISULFATE 75 MG TABLET (FP) PO SCH (09:27)
[2017-12-10] MEDS: SPIRONOLACTONE 25 MG TABLET (FP) PO SCH (09:27)
[2017-12-10] MEDS: VALSARTAN 40 MG TABLET (FP) PO SCH (09:27)
[2017-12-10] MEDS: ENOXAPARIN NA (PORCINE) 40 MG/0.4 ML DISP.SYRIN SQ SCH (09:27)
[2017-12-10] MEDS: CARVEDILOL 3.125 MG TABLET (FP) PO SCH ×2 (09:27→21:10)
[2017-12-10] MEDS: ASPIRIN 81 MG CHEWABLE TABLETS PO SCH (09:28)
[2017-12-10] MEDS ORDERED: SPIRONOLACTONE 25 MG TABLET (FP) PO SCH (10:00)
[2017-12-10] MEDS ORDERED: VALSARTAN 40 MG TABLET (FP) PO SCH (10:00)
--- NOTE | 2017-12-10 11:26 | PN ---
Progress Note (short form) - Note Progress Note: Subjective: The patient was seen and examined at the bedside, no complaints at this time Transfer for possible cardiac cath today Current Medications Generic Name Dose Route Start Last Admin Trade Name Julius PRN Reason Stop Dose Admin Acetaminophen 650 mg 12/07/17 15:18 12/09/17 17:53 Tylenol - PO 650 mg Q4H PRN Administration PAIN LEVEL 4 - 6 Albuterol/Ipratropium 1 amp 12/07/17 15:18 12/08/17 20:50 Duoneb - NEB 1 amp Q4H PRN Administration SHORTNESS OF BREATH Aspirin 81 mg 12/08/17 10:00 12/10/17 09:28 Asa - PO 81 mg DAILY [facility] Administration Atorvastatin Calcium 20 mg 12/08/17 22:00 12/09/17 21:40 Lipitor - PO 20 mg HS [facility] Administration Carvedilol 3.125 mg 12/08/17 10:00 12/10/17 09:27 Coreg - PO 3.125 mg BID [facility] Administration Clopidogrel Bisulfate 75 mg 12/08/17 10:00 12/10/17 09:27 Plavix - PO 75 mg DAILY [facility] Administration Enoxaparin Sodium 40 mg 12/08/17 10:00 12/10/17 09:27 Lovenox - SQ 40 mg DAILY [facility] Administration Furosemide 40 mg 12/08/17 14:00 12/10/17 06:45 Lasix Injection - IVPUSH 40 mg BID@0600,1400 [facility] Administration Spironolactone 25 mg 12/09/17 17:17 12/10/17 09:27 Aldactone - PO 25 mg DAILY [facility] Administration Valsartan 40 mg 12/09/17 17:18 12/10/17 09:27 Diovan - PO 40 mg DAILY [facility] Administration Objective: Vital Signs Period Temp Pulse Resp BP Sys/Jones Pulse Ox Last 24 Hr 97.5 F-99.2 F 65-87 16-20 99-144/40-70 96-100 Physical Exam: General: NAD, A&Ox3 Lungs: CTA bilaterally Heart: RRR, S1S2 Abd: Soft, non-tender, non-distended. Normoactive bowel sounds Ext: Warm, well-perfused. 2+ DP/PT bilaterally Neuro: CN 2-12 intact CBCD WBC 5.5 K/mm3 (4.0-10.0) 12/10/17 06:18 RBC 4.67 M/mm3 (4.00-5.60) 12/10/17 06:18 Hgb 12.8 GM/dL (11.7-16.9) 12/10/17 06:18 Hct 38.9 % (35.4-49) 12/10/17 06:18 MCV 83.3 fl (80-96) 12/10/17 06:18 MCHC 33.0 g/dl (32.0-35.9) 12/10/17 06:18 RDW 15.7 % (11.9-15.9) 12/10/17 06:18 Plt Count 262 K/MM3 (134-434) 12/10/17 06:18 MPV 8.5 fl (7.5-11.1) 12/10/17 06:18 CMP Sodium 136 mmol/L (136-145) 12/10/17 06:18 Potassium 4.3 mmol/L (3.5-5.1) 12/10/17 06:18 Chloride 102 mmol/L (98-107) 12/10/17 06:18 Carbon Dioxide 28 mmol/L (21-32) 12/10/17 06:18 Anion Gap 6 (8-16) L 12/10/17 06:18 BUN 25 mg/dL (7-18) H 12/10/17 06:18 Creatinine 1.1 mg/dL (0.7-1.3) 12/10/17 06:18 Creat Clearance w eGFR > 60 (>60) 12/10/17 06:18 Random Glucose 93 mg/dL (74-106) 12/10/17 06:18 Calcium 8.4 mg/dL (8.5-10.1) L 12/10/17 06:18 Total Bilirubin 0.6 mg/dL (0.2-1.0) D 12/10/17 06:18 AST 19 U/L (15-37) 12/10/17 06:18 ALT 27 U/L (12-78) D 12/10/17 06:18 Alkaline Phosphatase 78 U/L (45-117) 12/10/17 06:18 Total Protein 8.0 g/dl (6.4-8.2) 12/10/17 06:18 Albumin 3.0 g/dl (3.4-5.0) L 12/10/17 06:18 CARDIAC ENZYMES Creatine Kinase 318 IU/L (39-308) H 12/09/17 06:00 Troponin I 0.05 ng/ml (0.00-0.05) 12/09/17 06:00 Assessment: This is a 52 year old male with PMHx of HTN, active smoker, hx of pulmonary edema and [place] requiring coding?, CVA x2, who presented to the ED with worsening shortness of breath, cough, and lower extremity edema. Plan: 1) Acute severe systolic heart failure - ECHO with severely dilated LV. LVSF is severely reduced. EF 15-20%. Severe global hypokinesis of LV. Mod MR, mild TR, mild pulmonic valvular regurg - Continue Coreg with uptitration as BP tolerates - Start Spironolactone - Start Diovan - Continue Lasix - Nuclear myocardial perfusion imaging reveals severe LV systolic dysfunction ( LVEF 15%), moderate anteroapical and inferior ischemia with apical infarct - Appreciate cardiology consult 2) Hx of CVA - Continue Plavix - Continue ASA - Continue Lipitor 3) F/E/N: - Sodium controlled diet - Monitor electrolytes 4) Prophylaxis: - Lovenox 40 md sq daily 5) Dispo: - Transfer for possible cardiac cath today CODE STATUS: FULL CODE Visit type - Emergency Visit Emergency Visit: Yes ED Registration Date: 12/07/17 Care time: The patient presented to the Emergency Department on the above date and was hospitalized for further evaluation of their emergent condition. - New Patient This patient is new to me today: No - Critical Care Critical Care patient: No
--- NOTE | 2017-12-10 14:03 | PN ---
Progress Note (short form) - Note Progress Note: Chief Complaint: Events noted, notes reviewed, denies any chest discomfort but continues to report dyspnea with mild to moderate physical exertion History of Present Illness: Seen and examined on telemetry. Events noted, notes reviewed, denies any chest discomfort but continues to report dyspnea with mild to moderate physical exertion Transthoracic echocardiography revealed severe LV systolic dysfunction with global hypokinesia (LVEF 15-20%) and LV dilatation, moderate to severe LA dilatation, moderate RA dilatation, moderate mitral valve regurgitation Nuclear myocardial perfusion imaging study revealed severe LV systolic dysfunction (LVEF 15%), moderate bry-apical and inferior wall ischemia with apical infarct - Current Medication List Current Medications: Current Medications Acetaminophen (Tylenol -) 650 mg PO Q4H PRN PRN Reason: PAIN LEVEL 4 - 6 Last Admin: 12/09/17 17:53 Dose: 650 mg Albuterol/Ipratropium (Duoneb -) 1 amp NEB Q4H PRN PRN Reason: SHORTNESS OF BREATH Last Admin: 12/08/17 20:50 Dose: 1 amp Aspirin (Asa -) 81 mg PO DAILY [facility] Last Admin: 12/10/17 09:28 Dose: 81 mg Atorvastatin Calcium (Lipitor -) 20 mg PO HS [facility] Last Admin: 12/09/17 21:40 Dose: 20 mg Carvedilol (Coreg -) 3.125 mg PO BID [facility] Last Admin: 12/10/17 09:27 Dose: 3.125 mg Clopidogrel Bisulfate (Plavix -) 75 mg PO DAILY [facility] Last Admin: 12/10/17 09:27 Dose: 75 mg Enoxaparin Sodium (Lovenox -) 40 mg SQ DAILY [facility] Last Admin: 12/10/17 09:27 Dose: 40 mg Furosemide (Lasix Injection -) 40 mg IVPUSH BID@0600,1400 [facility] Last Admin: 12/10/17 06:45 Dose: 40 mg Spironolactone (Aldactone -) 25 mg PO DAILY [facility] Last Admin: 12/10/17 09:27 Dose: 25 mg Valsartan (Diovan -) 40 mg PO DAILY [facility] Last Admin: 12/10/17 09:27 Dose: 40 mg - Review of Systems Constitutional: denies: Chills or Fever Cardiovascular: As noted above Respiratory: denies: Cough or Sputum Production Gastrointestinal: denies: Nausea, Vomiting, Diarrhea, Constipation or Abdominal Pain Neurological: denies: Dizziness or Headache - Objective Vital Signs: Last Vital Signs Temp Pulse Resp BP Pulse Ox 98 F 81 16 117/64 100 12/10/17 08:37 12/10/17 08:37 12/10/17 08:37 12/10/17 08:37 12/10/17 08:00 Intake & Output 12/07/17 12/08/17 12/09/17 12/10/17 23:59 23:59 23:59 23:59 Intake Total 550 920 930 Output Total 1800 2700 750 Balance -1250 -1780 180 Weight 180 lb 168 lb 2 oz 167 lb 12.8 oz Neck: Supple Negative JVD Cardiovascular: S1 and S2 Regular Rate and Rhythm Grade 1/6 systolic apical murmur Respiratory: Diminished Breath sounds at the bases bilaterally Gastrointestinal: Soft, benign Normal Bowel Sounds Ext: Edema Labs: CBC, BMP 12/10/17 06:18 12/10/17 06:18 Hepatic Panel Total Bilirubin 0.6 mg/dL (0.2-1.0) D 12/10/17 06:18 AST 19 U/L (15-37) 12/10/17 06:18 ALT 27 U/L (12-78) D 12/10/17 06:18 Alkaline Phosphatase 78 U/L (45-117) 12/10/17 06:18 Albumin 3.0 g/dl (3.4-5.0) L 12/10/17 06:18 Assessment/Plan ASSESSMENT: 1. Acute on chronic class II-III [place] [employer] classification left ventricular failure related to LV systolic/diastolic dysfunction, resolving 2. Dilated cardiomyopathy unclear ischemic cardiomyopathy versus idiopathic dilated non-ischemic cardiomyopathy 3. Coronary artery disease angina pectoris with evidence of demand ischemic injury 4. Cerebrovascular disease/CVA 5. Chronic kidney disease PLAN: 1. Continue Coreg and titrate dosage as tolerated, hemodynamics permitting 2. Continue Diovan and titrate dosage as tolerated, hemodynamics permitting, with close monitoring of renal function 3. Continue Lasix and Aldactone therapies with caution and close monitoring of renal function 4. Continue Ecotrin and Plavix therapy 5. To proceed with right and left heart cardiac catheterization coronary angiography for further evaluation of the extent of coronary artery disease prior to planning further intervention once medically optimized, later this week 6. Once the above procedure is completed patient is to be discharged home with Life-Vest application; pending future evaluation of LV EF prior to proceeding with prophylactic ICD implantation Kemar Uriarte MD
[2017-12-10] MEDS: ACETAMINOPHEN 325 MG TABLET (FP) PO PRN (15:05)
[2017-12-10] MEDS ORDERED: PT OWN MED DRAWER 7, Y5N ONE (17:54)
[2017-12-10] MEDS ORDERED: oxyCODONE HCL 5 MG TABLET PO ONE (17:56)
[2017-12-10] MEDS: ATORVASTATIN CA 20 MG TABLET (FP) PO SCH (21:10)
[2017-12-11] MEDS: FUROSEMIDE 40 MG/4 ML INJECTABLE VIAL IVPUSH SCH ×2 (05:33→16:07)
[2017-12-11] MEDS: ALBUTEROL SO4 2.5/IPRATROPIUM 0.5 INH SOL 3 ML VIAL.NEB. NEB PRN (08:20)
[2017-12-11] MEDS: CARVEDILOL 3.125 MG TABLET (FP) PO SCH ×2 (09:03→21:14)
[2017-12-11] MEDS: CLOPIDOGREL BISULFATE 75 MG TABLET (FP) PO SCH (09:03)
[2017-12-11] MEDS: ENOXAPARIN NA (PORCINE) 40 MG/0.4 ML DISP.SYRIN SQ SCH (09:03)
[2017-12-11] MEDS: ASPIRIN 81 MG CHEWABLE TABLETS PO SCH (09:03)
--- NOTE | 2017-12-11 10:22 | PN ---
Progress Note (short form) - Note Progress Note: Chief Complaint: Events noted, notes reviewed, denies any chest discomfort but continues to report persistent dyspnea with mild to moderate physical exertion History of Present Illness: Seen and examined on telemetry. Events noted, notes reviewed, denies any chest discomfort but continues to report persistent dyspnea with mild to moderate physical exertion Transthoracic echocardiography revealed severe LV systolic dysfunction with global hypokinesia (LVEF 15-20%) and LV dilatation, moderate to severe LA dilatation, moderate RA dilatation, moderate mitral valve regurgitation Nuclear myocardial perfusion imaging study revealed severe LV systolic dysfunction (LVEF 15%), moderate bry-apical and inferior wall ischemia with apical infarct - Current Medication List Current Medications: Current Medications Acetaminophen (Tylenol -) 650 mg PO Q4H PRN PRN Reason: PAIN LEVEL 4 - 6 Last Admin: 12/10/17 15:05 Dose: 650 mg Albuterol/Ipratropium (Duoneb -) 1 amp NEB Q4H PRN PRN Reason: SHORTNESS OF BREATH Last Admin: 12/11/17 08:20 Dose: 1 amp Aspirin (Asa -) 81 mg PO DAILY [facility] Last Admin: 12/11/17 09:03 Dose: 81 mg Atorvastatin Calcium (Lipitor -) 20 mg PO HS [facility] Last Admin: 12/10/17 21:10 Dose: 20 mg Carvedilol (Coreg -) 3.125 mg PO BID [facility] Last Admin: 12/11/17 09:03 Dose: 3.125 mg Clopidogrel Bisulfate (Plavix -) 75 mg PO DAILY [facility] Last Admin: 12/11/17 09:03 Dose: 75 mg Enoxaparin Sodium (Lovenox -) 40 mg SQ DAILY [facility] Last Admin: 12/11/17 09:03 Dose: 40 mg Furosemide (Lasix Injection -) 40 mg IVPUSH BID@0600,1400 [facility] Last Admin: 12/11/17 05:33 Dose: 40 mg Spironolactone (Aldactone -) 25 mg PO DAILY [facility] Last Admin: 12/11/17 12:27 Dose: 25 mg Valsartan (Diovan -) 40 mg PO DAILY [facility] Last Admin: 12/11/17 12:27 Dose: 40 mg - Review of Systems Constitutional: denies: Chills or Fever Cardiovascular: As noted above Respiratory: denies: Cough or Sputum Production Gastrointestinal: denies: Nausea, Vomiting, Diarrhea, Constipation or Abdominal Pain Neurological: denies: Dizziness or Headache - Objective Vital Signs: Last Vital Signs Temp Pulse Resp BP Pulse Ox 97.8 F 77 18 119/49 99 12/11/17 08:57 12/11/17 11:45 12/11/17 11:45 12/11/17 11:45 12/11/17 09:00 Intake & Output 12/08/17 12/09/17 12/10/17 12/11/17 23:59 23:59 23:59 23:59 Intake Total 920 930 860 210 Output Total 2700 750 Balance -1780 180 860 210 Weight 168 lb 2 oz 167 lb 12.8 oz 169 lb 6.4 oz Neck: Supple Negative JVD Cardiovascular: S1 and S2 Regular Rate and Rhythm Grade 1/6 systolic apical murmur Respiratory: Diminished Breath sounds at the bases bilaterally Gastrointestinal: Soft, benign Normal Bowel Sounds Ext: Edema Labs: CBC, BMP 12/10/17 06:18 12/10/17 06:18 Assessment/Plan ASSESSMENT: 1. Acute on chronic class II-III [place] [employer] classification left ventricular failure related to LV systolic/diastolic dysfunction, resolving 2. Dilated cardiomyopathy unclear ischemic cardiomyopathy versus idiopathic dilated non-ischemic cardiomyopathy 3. Coronary artery disease angina pectoris with evidence of demand ischemic injury 4. Cerebrovascular disease/CVA 5. Chronic kidney disease PLAN: 1. Continue Coreg, hemodynamics permitting 2. Continue Diovan, hemodynamics permitting, with close monitoring of renal function 3. Continue Lasix and Aldactone therapies with caution and close monitoring of renal function 4. Continue Ecotrin and Plavix therapy 5. To proceed with right and left heart cardiac catheterization coronary angiography for further evaluation of the extent of coronary artery disease prior to planning further intervention once medically optimized, later this week 6. Once the above procedure is completed patient is to be discharged home with Life-Vest application; pending future evaluation of LV EF prior to proceeding with prophylactic ICD implantation Kemar Uriarte MD
--- NOTE | 2017-12-11 12:03 | PN ---
Progress Note (short form) - Note Progress Note: Subjective: The patient was seen and examined at the bedside, no complaints at this time Awaiting transfer for cardiac cath Current Medications Generic Name Dose Route Start Last Admin Trade Name Julius PRN Reason Stop Dose Admin Acetaminophen 650 mg 12/07/17 15:18 12/10/17 15:05 Tylenol - PO 650 mg Q4H PRN Administration PAIN LEVEL 4 - 6 Albuterol/Ipratropium 1 amp 12/07/17 15:18 12/11/17 08:20 Duoneb - NEB 1 amp Q4H PRN Administration SHORTNESS OF BREATH Aspirin 81 mg 12/08/17 10:00 12/11/17 09:03 Asa - PO 81 mg DAILY ART Administration Atorvastatin Calcium 20 mg 12/08/17 22:00 12/10/17 21:10 Lipitor - PO 20 mg HS ART Administration Carvedilol 3.125 mg 12/08/17 10:00 12/11/17 09:03 Coreg - PO 3.125 mg BID ART Administration Clopidogrel Bisulfate 75 mg 12/08/17 10:00 12/11/17 09:03 Plavix - PO 75 mg DAILY ART Administration Enoxaparin Sodium 40 mg 12/08/17 10:00 12/11/17 09:03 Lovenox - SQ 40 mg DAILY ART Administration Furosemide 40 mg 12/08/17 14:00 12/11/17 05:33 Lasix Injection - IVPUSH 40 mg BID@0600,1400 ART Administration Spironolactone 25 mg 12/09/17 17:17 12/10/17 09:27 Aldactone - PO 25 mg DAILY ART Administration Valsartan 40 mg 12/09/17 17:18 12/10/17 09:27 Diovan - PO 40 mg DAILY ART Administration Objective: Vital Signs Period Temp Pulse Resp BP Sys/Jones Pulse Ox Last 24 Hr 97.8 F-98.4 F 68-77 18-22 92-119/47-71 98-99 Physical Exam: General: NAD, A&Ox3 Lungs: CTA bilaterally Heart: RRR, S1S2 Abd: Soft, non-tender, non-distended. Normoactive bowel sounds Ext: Warm, well-perfused. 2+ DP/PT bilaterally Neuro: CN 2-12 intact CBCD WBC 5.5 K/mm3 (4.0-10.0) 12/10/17 06:18 RBC 4.67 M/mm3 (4.00-5.60) 12/10/17 06:18 Hgb 12.8 GM/dL (11.7-16.9) 12/10/17 06:18 Hct 38.9 % (35.4-49) 12/10/17 06:18 MCV 83.3 fl (80-96) 12/10/17 06:18 MCHC 33.0 g/dl (32.0-35.9) 12/10/17 06:18 RDW 15.7 % (11.9-15.9) 12/10/17 06:18 Plt Count 262 K/MM3 (134-434) 12/10/17 06:18 MPV 8.5 fl (7.5-11.1) 12/10/17 06:18 CMP Sodium 136 mmol/L (136-145) 12/10/17 06:18 Potassium 4.3 mmol/L (3.5-5.1) 12/10/17 06:18 Chloride 102 mmol/L (98-107) 12/10/17 06:18 Carbon Dioxide 28 mmol/L (21-32) 12/10/17 06:18 Anion Gap 6 (8-16) L 12/10/17 06:18 BUN 25 mg/dL (7-18) H 12/10/17 06:18 Creatinine 1.1 mg/dL (0.7-1.3) 12/10/17 06:18 Creat Clearance w eGFR > 60 (>60) 12/10/17 06:18 Random Glucose 93 mg/dL (74-106) 12/10/17 06:18 Calcium 8.4 mg/dL (8.5-10.1) L 12/10/17 06:18 Total Bilirubin 0.6 mg/dL (0.2-1.0) D 12/10/17 06:18 AST 19 U/L (15-37) 12/10/17 06:18 ALT 27 U/L (12-78) D 12/10/17 06:18 Alkaline Phosphatase 78 U/L (45-117) 12/10/17 06:18 Total Protein 8.0 g/dl (6.4-8.2) 12/10/17 06:18 Albumin 3.0 g/dl (3.4-5.0) L 12/10/17 06:18 CARDIAC ENZYMES Creatine Kinase 318 IU/L (39-308) H 12/09/17 06:00 Troponin I 0.05 ng/ml (0.00-0.05) 12/09/17 06:00 Assessment: This is a 52 year old male with PMHx of HTN, active smoker, hx of pulmonary edema and OK requiring coding?, CVA x2, who presented to the ED with worsening shortness of breath, cough, and lower extremity edema. Plan: 1) Acute severe systolic heart failure - ECHO with severely dilated LV. LVSF is severely reduced. EF 15-20%. Severe global hypokinesis of LV. Mod MR, mild TR, mild pulmonic valvular regurg - Continue Coreg with uptitration as BP tolerates - Start Spironolactone - Start Diovan - Continue Lasix - Nuclear myocardial perfusion imaging reveals severe LV systolic dysfunction ( LVEF 15%), moderate anteroapical and inferior ischemia with apical infarct - Will need cardiac cath, then discharge with Life Vest - Appreciate cardiology consult 2) Hx of CVA - Continue Plavix - Continue ASA - Continue Lipitor 3) F/E/N: - Sodium controlled diet - Monitor electrolytes 4) Prophylaxis: - Lovenox 40 md sq daily 5) Dispo: - Transfer for cardiac cath CODE STATUS: FULL CODE Visit type - Emergency Visit Emergency Visit: Yes ED Registration Date: 12/07/17 Care time: The patient presented to the Emergency Department on the above date and was hospitalized for further evaluation of their emergent condition. - New Patient This patient is new to me today: No - Critical Care Critical Care patient: No
[2017-12-11] MEDS: SPIRONOLACTONE 25 MG TABLET (FP) PO SCH (12:27)
[2017-12-11] MEDS: VALSARTAN 40 MG TABLET (FP) PO SCH (12:27)
[2017-12-11] MEDS: ATORVASTATIN CA 20 MG TABLET (FP) PO SCH (21:14)
[2017-12-12] MEDS: FUROSEMIDE 40 MG/4 ML INJECTABLE VIAL IVPUSH SCH ×2 (05:30→15:38)
--- NOTE | 2017-12-12 08:53 | PN ---
Physical Exam: SUBJECTIVE: Patient seen and examined, sitting in chair. States he feels well, denies shortness of breath or chest pain. Does not remember which home meds he takes, or recalls if he takes them daily. OBJECTIVE: Explained to patient that he needs a cardiac cath. and that we are waiting for transfer to another facility. He appears overwhelmed with this news, keeps asking to go home. on 2 liters of oxygen, shortness of breath with exertion and physical activity Recommend close follow up outpatient once procedures are complete, patient needs reinforcement on medication compliance. Patient on home seroquel? Attempting to obtain records to confirm PMHx with dr. melendez , but pt not seen in over a year, no medical records in [facility] at Dr. Melendez's office. Paper chart to be sent to [facility] via fax. [id number]: received call back from Dr. Melendez office, patient was to never seen at his office, had initial appointment December 10, but patient has been hospitalized here. Vital Signs Period Temp Pulse Resp BP Sys/Jones Pulse Ox Last 24 Hr 97.5 F-99.1 F 69-93 18-22 89-121/40-63 99-99 GENERAL: The patient is awake, alert, forgetful, often repetitive HEAD: Normal with no signs of trauma. EYES: PERRL, extraocular movements intact, sclera anicteric, conjunctiva clear. No ptosis. ENT: Ears normal, nares patent, oropharynx clear without exudates, moist mucous membranes. NECK: Trachea midline, full range of motion, supple. LUNGS: diminished breath sounds bilaterally, on 2 liters of oxygen, shortness of breath with exertion and physical activity HEART: Regular rate and rhythm, S1, S2 without murmur, rub or gallop. ABDOMEN: Soft, nontender, nondistended, normoactive bowel sounds, no guarding, no rebound, no hepatosplenomegaly, no masses. EXTREMITIES: trace edema bilaterally. NEUROLOGICAL: Cranial nerves II through XII grossly intact. Normal speech, gait not observed. PSYCH: Normal mood, normal affect. SKIN: Warm, dry, normal turgor, no rashes or lesions noted Active Medications Generic Name Dose Route Start Last Admin Trade Name Freq PRN Reason Stop Dose Admin Acetaminophen 650 mg 12/07/17 15:18 12/10/17 15:05 Tylenol - PO 650 mg Q4H PRN Administration PAIN LEVEL 4 - 6 Albuterol/Ipratropium 1 amp 12/07/17 15:18 12/11/17 08:20 Duoneb - NEB 1 amp Q4H PRN Administration SHORTNESS OF BREATH Aspirin 81 mg 12/08/17 10:00 12/11/17 09:03 Asa - PO 81 mg DAILY ART Administration Atorvastatin Calcium 20 mg 12/08/17 22:00 12/11/17 21:14 Lipitor - PO 20 mg HS ART Administration Carvedilol 3.125 mg 12/08/17 10:00 12/11/17 21:14 Coreg - PO 3.125 mg BID ART Administration Clopidogrel Bisulfate 75 mg 12/08/17 10:00 12/11/17 09:03 Plavix - PO 75 mg DAILY ART Administration Enoxaparin Sodium 40 mg 12/08/17 10:00 12/11/17 09:03 Lovenox - SQ 40 mg DAILY ART Administration Furosemide 40 mg 12/08/17 14:00 12/12/17 05:30 Lasix Injection - IVPUSH 40 mg BID@0600,1400 ART Administration Spironolactone 25 mg 12/09/17 17:17 12/11/17 12:27 Aldactone - PO 25 mg DAILY ART Administration Valsartan 40 mg 12/09/17 17:18 12/11/17 12:27 Diovan - PO 40 mg DAILY ART Administration ASSESSMENT/PLAN: Patient is a 52 year old male with a significant past medical history of hypertension, smoker, pulmonary edema, [place], CVA x 2. He presents to the ED on 12/07/2017 for acute and severe systolic HF with an EF of 15%. Imaging: Echo: severe LV systolic dysfunction with global hypokinesia (LVEF 15-20%) and LV dilatation, mod> severe LA dil., mod. RA dil., moderate MV regurgitation Stress: severe LV systolic dysfunction (LVEF 15%), moderate bry-apical and inferior wall ischemia with apical infarct Card: Severe systolic heart failure, acute BP noted to be low this a.m., parameters added to cardiac meds On Lasix 40mg BID On ASA 81mg, Diovan 40mg daily, Spironolactone 25mg daily Patient awaiting transfer to [place], likely tomorrow Monitor intake and output, monitor daily weight Discussed with cardiology Hypertension, chronic Episodes of hypotension Parameters to cardiac meds HLD, chronic On Lipitor Neuro: CVA x 2 history On Plavix, ASA, Lipitor F.E.N. Fluids: PO adequate Electrolytes: monitor daily Nutrition: low salt Prophy: On Lovenox 40mg daily Visit type - Emergency Visit Emergency Visit: Yes ED Registration Date: 12/07/17 Care time: The patient presented to the Emergency Department on the above date and was hospitalized for further evaluation of their emergent condition. - New Patient This patient is new to me today: Yes Date on this admission: 12/12/17 - Critical Care Critical Care patient: No - Discharge Referral Referred to [facility] Med P.C.: No
[2017-12-12] MEDS: ASPIRIN 81 MG CHEWABLE TABLETS PO SCH (09:41)
[2017-12-12] MEDS: CLOPIDOGREL BISULFATE 75 MG TABLET (FP) PO SCH (09:41)
[2017-12-12] MEDS: ENOXAPARIN NA (PORCINE) 40 MG/0.4 ML DISP.SYRIN SQ SCH (09:41)
[2017-12-12] MEDS: CARVEDILOL 3.125 MG TABLET (FP) PO SCH ×2 (09:41→21:52)
[2017-12-12] MEDS: SPIRONOLACTONE 25 MG TABLET (FP) PO SCH (09:41)
--- NOTE | 2017-12-12 10:05 | PN ---
Progress Note, Physician Chief Complaint: Clinically improving Denies dyspnea or chest pain History of Present Illness: Patient was seen and examined. Awake and alert. Chart was reviewed Denies chest pain. Intermittent SOB. No palpitations Explained indication for cardiac catheterization, but unclear how much he comprehends. Spoke with primary medical service regarding plan for cath - Current Medication List Current Medications: Active Medications Acetaminophen (Tylenol -) 650 mg PO Q4H PRN PRN Reason: PAIN LEVEL 4 - 6 Last Admin: 12/10/17 15:05 Dose: 650 mg Albuterol/Ipratropium (Duoneb -) 1 amp NEB Q4H PRN PRN Reason: SHORTNESS OF BREATH Last Admin: 12/11/17 08:20 Dose: 1 amp Aspirin (Asa -) 81 mg PO DAILY [facility] Last Admin: 12/12/17 09:41 Dose: 81 mg Atorvastatin Calcium (Lipitor -) 20 mg PO HS [facility] Last Admin: 12/11/17 21:14 Dose: 20 mg Carvedilol (Coreg -) 3.125 mg PO BID [facility] Last Admin: 12/12/17 09:41 Dose: 3.125 mg Clopidogrel Bisulfate (Plavix -) 75 mg PO DAILY [facility] Last Admin: 12/12/17 09:41 Dose: 75 mg Enoxaparin Sodium (Lovenox -) 40 mg SQ DAILY [facility] Last Admin: 12/12/17 09:41 Dose: 40 mg Furosemide (Lasix Injection -) 40 mg IVPUSH BID@0600,1400 [facility] Last Admin: 12/12/17 05:30 Dose: 40 mg Spironolactone (Aldactone -) 25 mg PO DAILY [facility] Last Admin: 12/12/17 09:41 Dose: Not Given Valsartan (Diovan -) 40 mg PO DAILY [facility] - Objective Vital Signs: Vital Signs Temperature 98.2 F 12/12/17 09:00 Pulse Rate 77 12/12/17 09:00 Respiratory Rate 18 12/12/17 09:00 Blood Pressure 95/61 12/12/17 09:00 O2 Sat by Pulse Oximetry (%) 99 12/11/17 19:58 HENT: Yes: Atraumatic Neck: Yes: Supple Cardiovascular: Yes: Regular Rate and Rhythm, S1, S2 Respiratory: Yes: CTA Bilaterally Gastrointestinal: Yes: Normal Bowel Sounds, Soft. No: Tenderness Edema: No Additional Findings/Remarks: - Review of Systems Constitutional: denies: Chills, Fever Cardiovascular: reports: Shortness of Breath. denies: Chest Pain, Palpitations Respiratory: reports: SOB. denies: Cough, Hemoptysis, Orthopnea, PND Gastrointestinal: denies: Abdominal Pain, Constipation, Diarrhea, Melena, Nausea , Rectal Bleeding, Vomiting Neurological: denies: Dizziness, Headache, Seizure, Syncope Labs: CBC, BMP 12/10/17 06:18 12/10/17 06:18 Problem List - Problems (1) Congestive heart failure (CHF) Code(s): I50.9 - HEART FAILURE, UNSPECIFIED Qualifiers: Heart failure type: combined systolic and diastolic Heart failure chronicity: acute on chronic Qualified Code(s): I50.43 - Acute on chronic combined systolic (congestive) and diastolic (congestive) heart failure (2) Cerebrovascular disease Code(s): I67.9 - CEREBROVASCULAR DISEASE, UNSPECIFIED (3) Demand ischemia Code(s): I24.8 - OTHER FORMS OF ACUTE ISCHEMIC HEART DISEASE (4) Dilated cardiomyopathy Code(s): I42.0 - DILATED CARDIOMYOPATHY (5) Mitral valve regurgitation Code(s): I34.0 - NONRHEUMATIC MITRAL (VALVE) INSUFFICIENCY Qualifiers: Cardiac valve disease etiology: nonrheumatic Qualified Code(s): I34.0 - Nonrheumatic mitral (valve) insufficiency Assessment/Plan 1. Clinical presentation suggests acute on chronic LV systolic/diastolic failure with elevated BNP - class 2-3 NYHA heart failure 2. Dilated cardiomyopathy with severe LV systolic dysfunction - ischemic vs. non -ischemic 3. Clinical presentation suggests coronary artery disease 4. Cerebrovascular disease/CVA 5. Mildly elevated troponin suggests demand ischemia PLAN: 1. Indication for cardiac catheterization/coronary angiography discussed with patient - [facility] tomorrow once clinically optimized 2. Continue Lasix IV and monitor I/Os, electrolytes and daily weight - eventually switch to PO 3. Continue ASA and Plavix 4. Nuclear myocardial perfusion imaging reveals severe LV systolic dysfunction ( LVEF 15%), moderate anteroapical and inferior ischemia with apical infarct 5. Up-titrate Carvedilol and Valsartan 6. Continue Spironolactone 7. If LVEF remains below 35%, patient may need ICD implant following the the guideline in regards to timing. Patient may also need LifeVest in the interim. Further plans are to follow Sang H. Arpita MD
[2017-12-12 10:22] LABS: BASO % 0.7 % (0-2.0); EOS % 1.2 % (0-4.5); HEMATOCRIT 39.9 % (35.4-49); HEMOGLOBIN 13.1 GM/dL (11.7-16.9); LYMPH % 32.3 % (8-40); MCH 27.2 pg (25.7-33.7); MCHC 32.8 g/dl (32.0-35.9); MEAN CELL VOLUME 82.9 fl (80-96); MEAN PLT VOLUME 7.8 fl (7.5-11.1); MONO % 17.3 % (3.8-10.2); NEUT % 48.5 % (42.8-82.8); PLATELET COUNT 266 K/MM3 (134-434); RBC 4.81 M/mm3 (4.00-5.60); RDW 15.6 % (11.9-15.9); WHITE BLOOD COUNT 4.1 K/mm3 (4.0-10.0)
[2017-12-12 10:41] LABS: ALBUMIN 3.2 g/dl (3.4-5.0); ANION GAP 6 (8-16); BILIRUBIN,TOTAL 0.4 mg/dL (0.2-1.0); BLOOD UREA NITROGEN 20 mg/dL (7-18); CALCIUM 9.4 mg/dL (8.5-10.1); CHLORIDE 100 mmol/L (98-107); CO2 33 mmol/L (21-32); GLUCOSE,RANDOM 102 mg/dL (74-106); MAGNESIUM 2.5 mg/dL (1.8-2.4); POTASSIUM 4.3 mmol/L (3.5-5.1); SGOT/AST 23 U/L (15-37); SGPT/ALT 30 U/L (12-78); SODIUM 139 mmol/L (136-145); TOT PROT 8.8 g/dl (6.4-8.2)
[2017-12-12 10:43] LABS: ALK PHOS 78 U/L (45-117)
[2017-12-12] MEDS: VALSARTAN 40 MG TABLET (FP) PO SCH (11:07)
[2017-12-12] MEDS: ATORVASTATIN CA 20 MG TABLET (FP) PO SCH (21:52)
[2017-12-13] MEDS: FUROSEMIDE 40 MG/4 ML INJECTABLE VIAL IVPUSH SCH (06:05)
[2017-12-13] MEDS: ENOXAPARIN NA (PORCINE) 40 MG/0.4 ML DISP.SYRIN SQ SCH (09:49)
[2017-12-13] MEDS: ASPIRIN 81 MG CHEWABLE TABLETS PO SCH (09:50)
[2017-12-13] MEDS: CLOPIDOGREL BISULFATE 75 MG TABLET (FP) PO SCH (09:50)
[2017-12-13] MEDS: CARVEDILOL 3.125 MG TABLET (FP) PO SCH (09:50)
[2017-12-13] MEDS: SPIRONOLACTONE 25 MG TABLET (FP) PO SCH (09:50)
[2017-12-13] MEDS: VALSARTAN 40 MG TABLET (FP) PO SCH (09:50)
[2017-12-13 09:59] VITALS: BP 122/76; PULSE 77; TEMP 97.7
[2017-12-13 10:11] LABS: HEMATOCRIT 40.3 % (35.4-49); HEMOGLOBIN 13.2 GM/dL (11.7-16.9); MCH 27.1 pg (25.7-33.7); MCHC 32.7 g/dl (32.0-35.9); MEAN PLT VOLUME 8.1 fl (7.5-11.1); PLATELET COUNT 269 K/MM3 (134-434); RBC 4.86 M/mm3 (4.00-5.60); RDW 15.6 % (11.9-15.9); WHITE BLOOD COUNT 4.7 K/mm3 (4.0-10.0)
--- NOTE | 2017-12-13 10:32 | DS ---
Physical Exam: SUBJECTIVE: Patient seen and examined OBJECTIVE: Vital Signs Period Temp Pulse Resp BP Sys/Jones Pulse Ox Last 24 Hr 97.4 F-99.2 F 68-78 18-20 93-122/43-76 98-100 PHYSICAL EXAM GENERAL: The patient is awake, alert, forgetful, often repetitive HEAD: Normal with no signs of trauma. EYES: PERRL, extraocular movements intact, sclera anicteric, conjunctiva clear. No ptosis. ENT: Ears normal, nares patent, oropharynx clear without exudates, moist mucous membranes. NECK: Trachea midline, full range of motion, supple. LUNGS: diminished breath sounds bilaterally, on 2 liters of oxygen, shortness of breath with exertion and physical activity HEART: Regular rate and rhythm, S1, S2 without murmur, rub or gallop. ABDOMEN: Soft, nontender, nondistended, normoactive bowel sounds, no guarding, no rebound, no hepatosplenomegaly, no masses. EXTREMITIES: trace edema bilaterally. NEUROLOGICAL: Cranial nerves II through XII grossly intact. Normal speech, gait not observed. PSYCH: Normal mood, normal affect. SKIN: Warm, dry, normal turgor, no rashes or lesions noted LABS Laboratory Results - last 24 hr 12/12/17 12/12/17 12/13/17 10:00 10:00 09:21 WBC 4.1 4.7 RBC 4.81 4.86 Hgb 13.1 13.2 Hct 39.9 40.3 MCV 82.9 83.0 MCH 27.2 27.1 MCHC 32.8 32.7 RDW 15.6 15.6 Plt Count 266 269 MPV 7.8 8.1 Neutrophils % 48.5 No Result Required. Lymphocytes % 32.3 D No Result Required. Monocytes % 17.3 H Eosinophils % 1.2 Basophils % 0.7 Sodium 139 Potassium 4.3 Chloride 100 Carbon Dioxide 33 H Anion Gap 6 L BUN 20 H Creatinine 1.0 Creat Clearance w eGFR > 60 Random Glucose 102 Calcium 9.4 Magnesium 2.5 H Total Bilirubin 0.4 D AST 23 D ALT 30 Alkaline Phosphatase 78 Total Protein 8.8 H Albumin 3.2 L HOSPITAL COURSE: Date of Admission:12/07/17 Date of Discharge: 12/13/17 Patient is a 52 year old male with a significant past medical history of hypertension, smoker, pulmonary edema, [place], CVA x 2. He presents to the ED on 12/07/2017 for acute and severe systolic HF with an EF of 15%. Imaging: Echo: severe LV systolic dysfunction with global hypokinesia (LVEF 15-20%) and LV dilatation, mod> severe LA dil., mod. RA dil., moderate MV regurgitation Stress: severe LV systolic dysfunction (LVEF 15%), moderate bry-apical and inferior wall ischemia with apical infarct Card: Severe systolic heart failure, acute On Lasix 40mg BID On ASA 81mg, Diovan 40mg daily, Spironolactone 25mg daily Patient for transfer to [place] today for cardiac cath Monitor intake and output, monitor daily weight Hypertension, chronic Episodes of hypotension Parameters to cardiac meds HLD, chronic On Lipitor Neuro: CVA x 2 history On Plavix, ASA, Lipitor Disposition: Transfer to [facility] for cardiac cath. full code. Minutes to complete discharge: 30 Discharge Summary Reason For Visit: CONGESTIVE HEART FAILURE Current Active Problems Cerebrovascular disease (Acute) Congestive heart failure (CHF) (Acute) Demand ischemia (Acute) Dilated cardiomyopathy (Acute) Mitral valve regurgitation (Acute) Condition: Guarded - Instructions Diet, Activity, Other Instructions: TRANSFER TO [place] FOR CARDIAC CATH Referrals: Bebeto Leon MD [Primary Care Provider] - Disposition: TRANSFER ACUTE CARE/OTHER HOSP - Home Medications Comprehensive Discharge Medication List: Ambulatory Orders Aspirin [ASA -] 81 mg PO DAILY 12/07/17 Clopidogrel Bisulfate [Plavix] 75 mg PO DAILY 12/07/17 Seroquel 100 mg PO DAILY 12/08/17 This patient is new to me today: No Emergency Visit: Yes ED Registration Date: 12/07/17 Care time: The patient presented to the Emergency Department on the above date and was hospitalized for further evaluation of their emergent condition. Critical Care patient: No - Discharge Referral Referred to [facility] Med P.C.: No
[2017-12-13 10:34] LABS: ALBUMIN 3.4 g/dl (3.4-5.0); ALK PHOS 77 U/L (45-117); ANION GAP 7 (8-16); BILIRUBIN,TOTAL 0.6 mg/dL (0.2-1.0); BLOOD UREA NITROGEN 18 mg/dL (7-18); CALCIUM 9.5 mg/dL (8.5-10.1); CHLORIDE 98 mmol/L (98-107); CO2 31 mmol/L (21-32); GLUCOSE,RANDOM 107 mg/dL (74-106); MAGNESIUM 2.3 mg/dL (1.8-2.4); POTASSIUM 4.8 mmol/L (3.5-5.1); SGOT/AST 31 U/L (15-37); SGPT/ALT 41 U/L (12-78); SODIUM 136 mmol/L (136-145); TOT PROT 9.1 g/dl (6.4-8.2)
--- NOTE | 2017-12-13 10:46 | PN ---
Progress Note, Physician History of Present Illness: Patient denies chest pain, dyspnea, orthopnea, being transferred for [facility]. - Current Medication List Current Medications: Active Medications Acetaminophen (Tylenol -) 650 mg PO Q4H PRN PRN Reason: PAIN LEVEL 4 - 6 Last Admin: 12/10/17 15:05 Dose: 650 mg Aspirin (Asa -) 81 mg PO DAILY [facility] Last Admin: 12/13/17 09:50 Dose: 81 mg Atorvastatin Calcium (Lipitor -) 20 mg PO HS [facility] Last Admin: 12/12/17 21:52 Dose: 20 mg Carvedilol (Coreg -) 3.125 mg PO BID [facility] Last Admin: 12/13/17 09:50 Dose: 3.125 mg Clopidogrel Bisulfate (Plavix -) 75 mg PO DAILY [facility] Last Admin: 12/13/17 09:50 Dose: 75 mg Enoxaparin Sodium (Lovenox -) 40 mg SQ DAILY [facility] Last Admin: 12/13/17 09:49 Dose: 40 mg Furosemide (Lasix Injection -) 40 mg IVPUSH BID@0600,1400 [facility] Last Admin: 12/13/17 06:05 Dose: 40 mg Spironolactone (Aldactone -) 25 mg PO DAILY [facility] Last Admin: 12/13/17 09:50 Dose: 25 mg Valsartan (Diovan -) 40 mg PO DAILY [facility] Last Admin: 12/13/17 09:50 Dose: 40 mg - Objective Vital Signs: Vital Signs Temperature 97.7 F 12/13/17 09:00 Pulse Rate 77 12/13/17 09:00 Respiratory Rate 18 12/13/17 09:00 Blood Pressure 122/76 12/13/17 09:00 O2 Sat by Pulse Oximetry (%) 98 12/13/17 09:00 Constitutional: Yes: No Distress, Calm, Thin Neck: Yes: Supple Cardiovascular: Yes: Regular Rate and Rhythm, Murmur (2/6 SM) Respiratory: Yes: Regular, CTA Bilaterally Gastrointestinal: Yes: Normal Bowel Sounds, Soft Edema: No Labs: CBC, BMP 12/13/17 09:21 12/13/17 09:21 Problem List - Problems (1) Hyperlipidemia Code(s): E78.5 - HYPERLIPIDEMIA, UNSPECIFIED Qualifiers: Hyperlipidemia type: pure hypercholesterolemia Qualified Code(s): E78.00 - Pure hypercholesterolemia, unspecified; E78.0 - Pure hypercholesterolemia (2) Congestive heart failure (CHF) Code(s): I50.9 - HEART FAILURE, UNSPECIFIED Qualifiers: Heart failure type: combined systolic and diastolic Heart failure chronicity: acute on chronic Qualified Code(s): I50.43 - Acute on chronic combined systolic (congestive) and diastolic (congestive) heart failure (3) Demand ischemia Code(s): I24.8 - OTHER FORMS OF ACUTE ISCHEMIC HEART DISEASE (4) Dilated cardiomyopathy Code(s): I42.0 - DILATED CARDIOMYOPATHY (5) Mitral valve regurgitation Code(s): I34.0 - NONRHEUMATIC MITRAL (VALVE) INSUFFICIENCY Qualifiers: Cardiac valve disease etiology: nonrheumatic Qualified Code(s): I34.0 - Nonrheumatic mitral (valve) insufficiency Assessment/Plan Transthoracic echocardiography revealed severe LV systolic dysfunction with global hypokinesia (LVEF 15-20%) and LV dilatation, moderate to severe LA dilatation, moderate RA dilatation, moderate mitral valve regurgitation Nuclear myocardial perfusion imaging study revealed severe LV systolic dysfunction (LVEF 15%), moderate bry-apical and inferior wall ischemia with apical infarct 1. Clinical presentation suggests acute on chronic LV systolic/diastolic failure with elevated BNP - class 2-3 NYHA heart failure 2. Dilated cardiomyopathy with severe LV systolic dysfunction - ischemic vs. non -ischemic 3. Clinical presentation suggests coronary artery disease 4. Cerebrovascular disease/CVA 5. Mildly elevated troponin suggests demand ischemia PLAN: 1. Indication for cardiac catheterization/coronary angiography discussed with patient at [facility] today 2. Continue Lasix po qd monitor I/Os, electrolytes and daily weight 3. Continue ASA 81 qd, Lipitor 20 qhs and Plavix 75 qd 4. Nuclear myocardial perfusion imaging reveals severe LV systolic dysfunction ( LVEF 15%), moderate anteroapical and inferior ischemia with apical infarct 5. Up-titrate Carvedilol and Valsartan and Spironolactone as tolerated 6. If LVEF remains below 35%, patient may need ICD implant following the the guideline in regards to timing. Patient has been ordered LifeVest in the interim.
[2017-12-13 12:22] LABS: PLATELET ESTIMATE NORMAL
== END 2017-12-13 11:12 | disposition short-term general hospital (02) | DRG 194 ==
LOC: JER 10:52 → JERBED 13:47 → J4W 15:07
PROVIDERS: ADMIT Internal Medicine; ATTEND Nurse Practitioner Family
DX: I13.0 Hypertensive heart and chronic kidney disease with heart failure and stage 1 through stage 4 chronic kidney disease, or unspecified chronic kidney disease (principal); I50.21 Acute systolic (congestive) heart failure; I42.0 Dilated cardiomyopathy; I24.8 Other forms of acute ischemic heart disease; N18.9 Chronic kidney disease, unspecified; F17.210 Nicotine dependence, cigarettes, uncomplicated; Z86.73 Personal history of transient ischemic attack (TIA), and cerebral infarction without residual deficits; I25.10 Atherosclerotic heart disease of native coronary artery without angina pectoris; I25.2 Old myocardial infarction; I34.0 Nonrheumatic mitral (valve) insufficiency; E78.5 Hyperlipidemia, unspecified; I95.9 Hypotension, unspecified
CPT/HCPCS: 36415; 71045-TC-FY; 78452-TC; 80048; 80053; 80061; 81003; 82550; 82553; 83036; 83721; 83735; 83880; 84100; 84484; 85025; 93005; 93010; 93017; 93306-TC; 94640; 99285-25; A9502; C1887; J2785

== ENCOUNTER 2018-03-22 15:46 | Emergency (ER) | payer OTHER ==
[2018-03-22 15:56] VITALS: BP 109/76; PULSE 57; TEMP 98; BMI 33.2
--- NOTE | 2018-03-22 16:12 | PDOC ---
Attending Attestation - Resident Resident Name: Cole Heath - ED Attending Attestation I have performed the following: I have examined & evaluated the patient, The case was reviewed & discussed with the resident, I agree w/resident's findings & plan, Exceptions are as noted - HPI HPI: 52 yo M history HTN, CAD (currently wearing lifevest) presents with suspected abnormal MRI. Patient was brought to ED for suspected ICH. He has no complaints at present- no pain, weakness, numbness, change in speech, change in vision. He was being evaluated with an MRI for recent worsening memory loss which is unchanged today. - Physicial Exam PE: GENERAL: Awake, alert, and fully oriented, in no acute distress HEAD: No signs of trauma EYES: PERRLA, EOMI, sclera anicteric, conjunctiva clear ENT: Auricles normal inspection, hearing grossly normal, nares patent, oropharynx clear without exudates. Moist mucosa NECK: Normal ROM, supple, no lymphadenopathy, JVD, or masses LUNGS: Breath sounds equal, clear to auscultation bilaterally. No wheezes, and no crackles HEART: Regular rate and rhythm, normal S1 and S2, no murmurs, rubs or gallops ABDOMEN: Soft, nontender, normoactive bowel sounds. No guarding, no rebound. No masses EXTREMITIES: Normal range of motion, no edema. No clubbing or cyanosis. No cords, erythema, or tenderness NEUROLOGICAL: Cranial nerves II through XII grossly intact. Normal speech, normal gait. Motor and sensation intact. SKIN: Warm, Dry, normal turgor, no rashes or lesions noted. - Medical Decision Making 03/22/18 16:27 MRI officially read by radiologist, no acute findings. However, there are chronic findings. Stable for [place] home. Will d/w Dr. Dailey.
--- NOTE | 2018-03-22 16:33 | PDOC ---
History of Present Illness - General Chief Complaint: Revisit, Lab Variance Stated Complaint: POSSIBLE HEAD BLEED Time Seen by Provider: 03/22/18 15:49 - History of Present Illness Initial Comments: 03/22/18 16:26 52 year old male with significant past medical history of tobacco smoking, pre- heart attack (Treated in DR in 2017) and CHF is brought to the ED accompanied by his , sent here by the radiology construction technician there was suspicion for a head bleed. The patient was referred for an outpatient MRI of the brain on by Dr. Dailey. He came into the hospital today to get the MRI and only came to the ER bc was told by [facility] to come in a possible brain bleed. The patient feels great and has no complaints. He is not in any discomfort, does not have a headache, blurry vision, and has not had a fever in the past few weeks. Past History - Past Medical History Allergies/Adverse Reactions: Allergies Allergy/AdvReac Type Severity Reaction Status Date / Time No Known Allergies Allergy Verified 12/07/17 10:59 Home Medications: Ambulatory Orders Aspirin [ASA -] 81 mg PO DAILY 12/07/17 Clopidogrel Bisulfate [Plavix] 75 mg PO DAILY 12/07/17 Acetaminophen [Tylenol .Regular Strength -] 650 mg PO Q4H PRN tablet 12/13/17 Albuterol 2.5/Ipratropium 0.5 [Duoneb -] 1 amp NEB Q4H PRN amp 12/13/17 Atorvastatin Ca [Lipitor] 20 mg PO HS tablet 12/13/17 Carvedilol [Coreg -] 3.125 mg PO BID tablet 12/13/17 Enoxaparin [Lovenox -] 40 mg SQ DAILY disp.syrin 12/13/17 Furosemide Injection [Lasix Injection -] 40 mg IVPUSH BID@0600,1400 vial Spironolactone [Aldactone -] 25 mg PO DAILY tablet 12/13/17 Valsartan [Diovan] 40 mg PO DAILY tablet 12/13/17 CVA: Yes (AFFECTED PTS MEMORY&BALANCE) COPD: No HTN: Yes - Immunization History Immunization Up to Date: No - Suicide/Smoking/Psychosocial Hx Smoking History: Unknown if ever smoked Have you smoked in the past 12 months: Yes Number of Cigarettes Smoked Daily: 3 Information on smoking cessation initiated: No 'Breaking Loose' booklet given: 12/07/17 Hx Alcohol Use: No Drug/Substance Use Hx: No Substance Use Type: None Hx Substance Use Treatment: No Review of Systems - Review of Systems Comments:: 03/22/18 16:29 CONSTITUTIONAL: Absent: fever, chills, diaphoresis, generalized weakness, malaise, loss of appetite HEENT: Absent: rhinorrhea, nasal congestion, throat pain, throat swelling, difficulty swallowing, mouth swelling, ear pain, eye pain, visual Changes CARDIOVASCULAR: Absent: chest pain, syncope, palpitations, irregular heart rate, lightheadedness , peripheral edema RESPIRATORY: Absent: cough, shortness of breath, dyspnea with exertion, orthopnea, wheezing, stridor, hemoptysis GASTROINTESTINAL: Absent: abdominal pain, abdominal distension, nausea, vomiting, diarrhea, constipation, melena, hematochezia GENITOURINARY: Absent: dysuria, frequency, urgency, hesitancy, hematuria, flank pain, genital pain MUSCULOSKELETAL: Absent: myalgia, arthralgia, joint swelling SKIN: Absent: rash, itching, pallor HEMATOLOGIC/IMMUNOLOGIC: Absent: easy bleeding, easy bruising, lymphadenopathy, frequent infections ENDOCRINE: Absent: unexplained weight gain, unexplained weight loss, heat intolerance, cold intolerance NEUROLOGIC: Absent: headache, focal weakness or paresthesias, dizziness, unsteady gait, seizure, mental status changes, bladder or bowel incontinence PSYCHIATRIC: Absent: anxiety, depression, suicidal or homicidal ideation, hallucinations. *Physical Exam - Vital Signs Last Vital Signs Temp Pulse Resp BP Pulse Ox 98.0 F 57 L 16 109/76 100 03/22/18 15:52 03/22/18 15:52 03/22/18 15:52 03/22/18 15:52 03/22/18 15:52 - Physical Exam Comments: 03/22/18 16:30 GENERAL: Well developed, well nourished. Awake and alert. No acute distress. HEENT: Normocephalic, atraumatic. PERRLA, EOMI. No conjunctival pallor. Sclera are non- icteric. Moist mucous membranes. Oropharynx is clear. NECK: Supple. Full ROM. No JVD. Carotid pulses 2+ and symmetric, without bruits. No thyromegaly. No lymphadenopathy. CARDIOVASCULAR: Regular rate and rhythm. No murmurs, rubs, or gallops. Distal pulses are 2+ and symmetric. PULMONARY: No evidence of respiratory distress. Lungs clear to auscultation bilaterally. No wheezing, rales or rhonchi. ABDOMINAL: Soft. Non-tender. Non-distended. No rebound or guarding. No organomegaly. Normoactive bowel sounds. MUSCULOSKELETAL Normal range of motion at all joints. No bony deformities or tenderness. No CVA tenderness. EXTREMITIES: No cyanosis. No clubbing. No edema. No calf tenderness. SKIN: Warm and dry. Normal capillary refill. No rashes. No jaundice. NEUROLOGICAL: Alert, awake, appropriate. Cranial nerves 2-12 intact. No deficits to light touch and temperature in face, upper extremities and lower extremities. No motor deficits in the in face, upper extremities and lower extremities. Normoreflexic in the upper and lower extremities. Normal speech. Toes are down-going bilaterally. Gait is normal without ataxia. PSYCHIATRIC: Cooperative. Good eye contact. Appropriate mood and affect. Medical Decision Making - Medical Decision Making 03/22/18 16:30 52 yo M here with no complaints. MRI was taken an hour ago and showed no acute pathology. He is not experiencing any discomfort or problems. He was sent here by [employer] with worry of intracranial bleed. Official report showed no bleed. Patient is asymptomatic. Plan to DC him. We will speak with Dr. Dailey before DCing patient. 03/22/18 16:54 *DC/Admit/Observation/Transfer Diagnosis at time of Disposition: Cognitive decline - Discharge Dispostion Disposition: HOME Condition at time of disposition: Stable Decision to Admit order: No - Referrals Referrals: Krishna Dailey MD [Staff Physician] - - Patient Instructions Printed Discharge Instructions: Use It or Lose It: Preventing Cognitive Decline Additional Instructions: You were sent to the ER bc there was suspicion that you were bleeding in your brain. The MRI result did not show any brain bleed. Please follow up with Dr. Dailey and call him to schedule an appointment. Come back to the ER if your develop a bad fever, a bad headache, or any other concerning symtpoms. Print Language: WALLISIAN - Post Discharge Activity
--- NOTE | 2018-03-23 15:19 | EKG ---
Test Reason : Blood Pressure : / mmHG Vent. Rate : 063 BPM Atrial Rate : 063 BPM P-R Int : 236 ms QRS Dur : 124 ms QT Int : 460 ms P-R-T Axes : 019 008 077 degrees QTc Int : 470 ms SINUS RHYTHM WITH 1ST DEGREE A-V BLOCK CANNOT RULE OUT INFERIOR INFARCT (CITED ON OR BEFORE 07-DEC-2017) ANTEROLATERAL INFARCT (CITED ON OR BEFORE 07-DEC-2017) ABNORMAL ECG WHEN COMPARED WITH ECG OF 07-DEC-2017 12:13, PREMATURE VENTRICULAR COMPLEXES ARE NO LONGER PRESENT [place] INTERVAL HAS INCREASED QUESTIONABLE CHANGE IN INITIAL FORCES OF LATERAL LEADS Confirmed by CASE ARTEAGA, BRAYDEN ([id number]) on 03/23/2018 3:18:57 PM Referred By: Confirmed By:BRAYDEN WILLOUGHBY MD
== END 2018-03-22 16:46 | disposition home or self-care (01) ==
LOC: JER 15:46
DX: I69.811 Memory deficit following other cerebrovascular disease (principal); G31.84 Mild cognitive impairment of uncertain or unknown etiology; I25.10 Atherosclerotic heart disease of native coronary artery without angina pectoris; I10 Essential (primary) hypertension; I50.9 Heart failure, unspecified; I69.893 Ataxia following other cerebrovascular disease; Z87.891 Personal history of nicotine dependence; Z79.82 Long term (current) use of aspirin; Z79.01 Long term (current) use of anticoagulants
CPT/HCPCS: 93005; 93010; 99282-25

== ENCOUNTER 2019-09-21 14:44 | Inpatient (IN) | payer OTHER ==
--- NOTE | 2019-09-21 15:13 | PDOC ---
History of Present Illness - General Chief Complaint: Shortness of Breath Stated Complaint: Shortness of Breath Time Seen by Provider: 09/21/19 15:11 History Source: Patient Exam Limitations: No Limitations - History of Present Illness Initial Comments: 09/21/19 15:12 PCP: Dr. Leon Cards: Dr. Palm Source: Patient and HPI: 54yo M PMH CHF, HTN, CVA (remote), pacemaker (2019) presenting with SOB, cough for 3 days sent from PCP office with concern for CHF exacerbation. Patient reports 3 days of non-productive cough, progressively worsening. Normal exercise tolerance around the house, no LE swelling, reported medication compliance. Daughters both sick with URI symptoms last week. Patient denies hemoptysis, chest pain, fevers, chills, nausea, vomiting, diarrhea, constipation , headache. No recent change in lasix dose noted. Reports this is similar to his difficulty breathing with prior CHF exacerbation. Of note, patient takes furosemide 3 days a week, reports this is how it was prescribed. The RX bottle lists 20mg daily. All: NKDA Meds: Per chart PMH: Denies any pulmonary Hx PSH: Per chart SHx: Smoked 5 years, quit 1 year ago Past History - Past Medical History Allergies/Adverse Reactions: Allergies Allergy/AdvReac Type Severity Reaction Status Date / Time No Known Allergies Allergy Verified 09/21/19 15:01 Home Medications: Ambulatory Orders Aspirin 81 mg PO DAILY 09/21/19 Atorvastatin Calcium [Lipitor] 20 mg PO HS 09/21/19 Carvedilol [Coreg -] 1 tab PO BID 09/21/19 Citalopram Hydrobromide [Citalopram HBr] 20 mg PO DAILY 09/21/19 Donepezil HCl [Aricept -] 10 mg PO DAILY 09/21/19 Metformin HCl [Glucophage] 500 mg PO DAILY 09/21/19 Sacubitril/Valsartan [Entresto 24 mg-26 mg Tablet] 1 tab PO BID 09/21/19 CVA: Yes (AFFECTED PTS MEMORY&BALANCE) COPD: No HTN: Yes - Immunization History Immunization Up to Date: No - Psycho Social/Smoking Cessation Hx Smoking History: Unknown if ever smoked Have you smoked in the past 12 months: Yes Number of Cigarettes Smoked Daily: 3 'Breaking Loose' booklet given: 12/07/17 Hx Alcohol Use: No Drug/Substance Use Hx: No Substance Use Type: None Hx Substance Use Treatment: No Review of Systems - Review of Systems Able to Perform ROS?: Yes Is the patient limited Romanian proficient: Yes Constitutional: No: Chills, Diaphoresis, Fever, Malaise, Night Sweats, Weakness HEENTM: No: Recent change in vision, Nose Congestion, Throat Pain Respiratory: Yes: Cough, Shortness of Breath, Wheezing. No: Orthopnea, SOB at Rest, Stridor, Productive cough, Hemoptysis Cardiac (ROS): No: Chest Pain, Edema, Irregular Heart Rate, Lightheadedness, Palpitations, Syncope, Chest Tightness ABD/GI: No: Constipated, Diarrhea, Nausea, Poor Appetite, Poor Fluid Intake, Vomiting : No: Burning, Dysuria, Frequency Musculoskeletal: No: Back Pain, Muscle Pain, Muscle Weakness Integumentary: No: Bruising, Erythema, Flushing, Rash, Sweating Neurological: No: Headache, Numbness, Tingling, Weakness Psychiatric: No: Stressors, Change in Appetite Hematologic/Lymphatic: No: Anemia, Blood Clots, Easy Bleeding All Other Systems: Reviewed and Negative *Physical Exam - Physical Exam 09/21/19 15:48 Vitals reviewed, 95% O2 on RA, 99.6 oral tremp GEN: Mild respiratory distress, coughing. AAOx3. HEENT: NCAT, EOMI, PERRL. Sclera anicteric, noninjected. No facial asymmetry. Moist mucous membranes. Normal voice. Trachea midline. CV: RRR, S1/S2, no murmurs / rubs / gallops appreciated. LUNG: +Diffuse wheezing, coarse breath sounds, some accessory use intermittently. Speaking full sentences. GI: Soft, NTND, +BS, no guarding, no rebound. No masses. Neg CVAT b/l. EXTREMITIES: 2+ distal pulses. No LE edema. No obvious deformities of all extremities. SKIN: Warm, dry, no rashes appreciated, non-jaundiced. PSYCH: Normal mood and affect. Cooperative and appropriate. NEURO: CN grossly intact. Moving all extremities well. Normal strength and sensation grossly. ED Treatment Course - LABORATORY CBC & Chemistry Diagram: 09/21/19 16:30 09/21/19 16:00 Medical Decision Making - Medical Decision Making 09/21/19 15:37 54yo M PMH CHF, HTN, pacemaker presenting with subacute SOB, cough, fevers. History notable for CHF, smoking history, recent sick contacts. Exam notable for diffuse wheezes, junky non-productive cough / transmitted upper respiratory sounds, O2Sat 95% on RA. DDX: Most likely bronchitis, vs PNA, vs CHF exacerbation. - CBC, CMP, Cardiac Profile, BNP - Influenza swab - CXR, EKG - Duonebs - Solu-medrol 09/21/19 17:27 - Labs c/w CHF exacerbation - CXR pending Dispo: Tele vs ICU 09/21/19 17:36 - Lasix held in setting of hypotension to SBP 80s - CXR concerning for effusions +/- infiltrate - Rocephin / Zityhromax ordered 09/21/19 18:12 - Negative troponin - Influenza negative - Starting patient on BiPAP - Patient with prior ECHO EF 15-20% - UA pending 09/21/19 19:22 - Sign-out given to inpatient team, admitted Tele under Dr. Tolliver Discharge - Discharge Information Problems reviewed: Yes Clinical Impression/Diagnosis: Congestive heart failure (CHF) Qualifiers: Heart failure type: unspecified Heart failure chronicity: acute on chronic Qualified Code(s): I50.9 - Heart failure, unspecified Pneumonia Qualifiers: Pneumonia type: due to unspecified organism Laterality: right Lung location: unspecified part of lung Qualified Code(s): J18.9 - Pneumonia, unspecified organism Condition: Guarded - Follow up/Referral Referrals: Bebeto Leon MD [Primary Care Provider] - - Patient Discharge Instructions - Post Discharge Activity
[2019-09-21 15:18] VITALS: BMI 33.2
[2019-09-21] MEDS ORDERED: methylPREDNISolone NA SUCC 125 MG/2 ML VIAL IVPB ONE (15:36)
[2019-09-21] MEDS ORDERED: methylPREDNISolone NA SUCC 125 MG/2 ML VIAL ONE (16:15)
[2019-09-21] MEDS ORDERED: ALBUTEROL SO4 2.5/IPRATROPIUM 0.5 INH SOL 3 ML VIAL.NEB. NEB ONE ×2 (16:15→17:07)
[2019-09-21] MEDS: ALBUTEROL SO4 2.5/IPRATROPIUM 0.5 INH SOL 3 ML VIAL.NEB. NEB SCH ×3 (16:22→17:06)
[2019-09-21 16:49] LABS: BASO % 0.3 % (0-2.0); EOS % 0.8 % (0-4.5); HEMOGLOBIN 12.5 GM/dL (11.7-16.9); LYMPH % 30.8 % (8-40); MCHC 32.9 g/dl (32.0-35.9); MEAN CELL VOLUME 88.2 fl (80-96); MEAN PLT VOLUME 9.1 fl (7.5-11.1); MONO % 14.1 % (3.8-10.2); PLATELET COUNT 107 K/MM3 (134-434); RBC 4.31 M/mm3 (4.00-5.60); RDW 14.5 % (11.9-15.9); WHITE BLOOD COUNT 4.6 K/mm3 (4.0-10.0)
[2019-09-21] MEDS ORDERED: FUROSEMIDE 40 MG/4 ML INJECTABLE VIAL IVPUSH ONE ×2 (17:21→19:58)
[2019-09-21] MEDS ORDERED: FUROSEMIDE 40 MG/4 ML INJECTABLE VIAL ONE ×2 (17:26→20:59)
[2019-09-21 17:51] LABS: ALBUMIN 3.3 g/dl (3.4-5.0); ALK PHOS 67 U/L (45-117); ANION GAP 10 MMOL/L (8-16); BILIRUBIN,TOTAL 0.7 mg/dL (0.2-1); BLOOD UREA NITROGEN 18.7 mg/dL (7-18); CHLORIDE 105 mmol/L (98-107); CO2 19 mmol/L (21-32); CREATININE 1.2 mg/dL (0.55-1.3); GLUCOSE,RANDOM 95 mg/dL (74-106); POTASSIUM 5.2 mmol/L (3.5-5.1); SGOT/AST 70 U/L (15-37); SGPT/ALT 37 U/L (13-61); SODIUM 134 mmol/L (136-145); TOT PROT 7.5 g/dl (6.4-8.2)
--- NOTE | 2019-09-21 17:51 | PDOC ---
Attending Attestation - Resident Resident Name: Miguelito Fernandez - ED Attending Attestation I have performed the following: I have examined & evaluated the patient, The case was reviewed & discussed with the resident, I agree w/resident's findings & plan, Exceptions are as noted - HPI HPI: 09/21/19 17:51 54-year-old male presents with family for shortness of breath He does have sick contacts at home - Physicial Exam PE: 09/21/19 17:51 54-year-old male seated on the gurney receiving bronchodilator treatment, respiratory rate is 24 Head is normocephalic atraumatic Neck is supple CVS regular rate rhythm S1-S2 Lungs some coarse Rales scattered Protuberant abdomen nontender Extremities there is no significant lower extremity edema Neuro alert, speaking Malay to his family, moving all his limbs purposefully - Critical Care Time Total Critical Care Time: 30 Critical Care Statement: The care of this patient involved high complexity decision making to prevent further life threatening deterioration of the patient 's condition and/or to evaluate & treat vital organ system(s) failure or risk of failure. - Medical Decision Making 09/21/19 17:52 54-year-old male who is a patient of Dr. Herrera and his junior financial analyst is Dr. Barker she presents with shortness of breath There are family members who have "" colds at home Oral temp 99.6 Some scattered coarse Rales on exam but no lower extremity edema Patient does have a history of congestive heart failure and this is one reason he is being followed by Dr. Barker she Patient does have increased work of breathing with a respiratory rate of 24 Currently his blood pressure is 91/67 09/21/19 17:59 54-year-old male with a history of chronic LV systolic diastolic dysfunction Echo December 30, 2017 showed a left ventricle is severely dilated, left ventricle systolic function severely reduced Ejection fraction was 15 to 20% There was severe global hypokinesis of the left ventricle Moderate to severely dilated LA Moderate mitral regurg There was no pericardial effusion at the time 09/21/19 19:[address] Mj Finch who recommended Lasix despite the hypotension Lasix milligrams IV was given and the patient is diuresed 300 cc so far Systolic blood pressure at 100 Improved respiratory status on BIPAP 09/21/19 19:13 imp chf/acute on chronic LV systolic diastolic dyfunction telemetry admit
[2019-09-21] MEDS ORDERED: AZITHROMYCIN IVPB 500 MG in DEXTROSE 5%-WATER - 250 ML IVPB ONE (18:14)
[2019-09-21] MEDS ORDERED: CEFTRIAXONE 1 GM in DEXTROSE 5%-WATER - 100 ML IVPB ONE (18:14)
[2019-09-21] MEDS ORDERED: AZITHROMYCIN IVPB 500 MG/250 ML BAG IVPB ONE (18:28)
[2019-09-21] MEDS ORDERED: FUROSEMIDE 100 MG/10 ML INJECTABLE VIAL IVPB ONE (18:29)
[2019-09-21] MEDS ORDERED: CEFTRIAXONE 1 GM/50 ML BAG ONE (18:29)
--- NOTE | 2019-09-21 19:24 | PN ---
Teaching Attending Note Name of Resident: Felix Wilson ATTENDING PHYSICIAN STATEMENT I saw and evaluated the patient. I reviewed the resident's note and discussed the case with the resident. I agree with the resident's findings and plan as documented. SUBJECTIVE: Patient is a 54 year old man with a PMH of HFrEF, HTN, CVA, NIDDM and Pacemaker (2019) presenting with SOB, cough for 3 days sent from PCP office with concern for CHF exacerbation. Patient reports 3 days of non-productive cough, progressively worsening. Normal exercise tolerance around the house, no LE swelling and reported medication compliance. Daughters both sick with URI symptoms last week. Patient denies hemoptysis, chest pain, fevers, chills, nausea, vomiting, diarrhea, constipation or headache. No recent change in lasix dose noted - unclear if he was taking it as prescribed. Reports this is similar to his difficulty breathing with prior CHF exacerbation. Ex-smoker. Denies alcohol, tobacco or illicit drug use. No recent travels. OBJECTIVE: Alert and on BiPAP Vital Signs Period Temp Pulse Resp BP Sys/Jones Pulse Ox Last 24 Hr 99.6 F 63-64 20-28 88-105/48-66 96-100 HEENT: No Jaundice, eye redness or discharge, PERRLA, EOMI. Normocephalic, atraumatic. External ears are normal and hearing is grossly intact. No nasal discharge. Neck: Supple, nontender. No palpable adenopathy or thyromegaly. No JVD Chest: Good effort. Decreased breath sounds. Bibasilar crackles. Clear to percussion. Heart: Regular. No S3, rub or murmur Abdomen: Not distended, soft, nontender and no HSM. No rebound or guarding. Normal bowel sounds. Ext: Peripheral pulses intact. Leg edema. Skin: Warm and dry. No petechiae, rash or ecchymosis. Neuro: Alert. Oriented x3. CN 2-12 grossly intact. Sensation grossly intact in all four extremities and DTR are symmetric. Psych: Appropriate mood and affect. Good insight. Home Medications Medication Instructions Recorded Aspirin 81 mg PO DAILY 09/21/19 Atorvastatin Calcium [Lipitor] 20 mg PO HS 09/21/19 Carvedilol [Coreg -] 1 tab PO BID 09/21/19 Citalopram Hydrobromide 20 mg PO DAILY 09/21/19 [Citalopram HBr] Donepezil HCl [Aricept -] 10 mg PO DAILY 09/21/19 Metformin HCl [Glucophage] 500 mg PO DAILY 09/21/19 Sacubitril/Valsartan [Entresto 24 1 tab PO BID 09/21/19 mg-26 mg Tablet] Current Medications Generic Name Dose Route Start Last Admin Trade Name Freq PRN Reason Stop Dose Admin Enoxaparin Sodium 40 mg 09/22/19 10:00 Lovenox - SQ DAILY ART Abnormal Lab Results 09/21/19 09/21/19 09/21/19 16:00 16:00 16:30 Plt Count 107 L Monocytes % 14.1 H Sodium 134 L Potassium 5.2 H Carbon Dioxide 19 L BUN 18.7 H AST 70 H Creatine Kinase > 1000 H B-Natriuretic Peptide 1885.1 H Albumin 3.3 L ASSESSMENT AND PLAN: 1. Pneumonia and CHF Exacerbation - CHF exacerbation likely precipitated by insufficient diuresis, dietary indiscretion and pneumonia. HAND POLISHER shows cardiomegaly, pulmonary vascular congestion, left side pacemaker and RML infiltrate. In the ER Lasix IV was given and the patient diuresed over 300 cc. Also respiratory status improved on BIPAP. Patient being treated with IV Azithromycin, Rocephin, IV lasix and Prednisone. Will restrict dietary salt intake, get daily standing weight, urine legionella antigen, urinalysis and consult Cardiology. EKG shows sinus bradycardia, 1o AV block, anterolateral infarct of undetermined age and possible inferior ischemia - mostly unchanged from prior EKG but for the bradycardia. Flu swab is negative. 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 Etiology of rhabdomyolysis is unclear. Will monitor CPK, calcium and phosphate. ECHO from December 30, 2017 showed a "left ventricle is severely dilated, left ventricle systolic function severely reduced; Ejection fraction was 15 to 20%. There was severe global hypokinesis of the left ventricle. Moderate to severely dilated LA. Moderate mitral regurgitation. There was no pericardial effusion at the time." Will continue comprehensive care for all of patients comorbid conditions. 2. Hypoalbuminemia - Possibly due to combined effects of malnutrition and inflammation associated with comorbid chronic conditions. Will ensure adequate dietary protein intake and also consult wood fence installer. Urinalysis pending. 3. DM For now, we will hold the home diabetes drugs and implement sliding scale insulin regimen. Provide comprehensive diabetes care with patient teaching and counseling about the importance of adherence to prescribed diabetes regimen, euglycemia, eye care and foot care. 4. Obesity Counseled on the risks associated with obesity. Will provide patient all the necessary assistance, counseling and positive reinforcement to facilitate weight loss. Consult wood fence installer. 5. Hypertension - Will hold Coreg for now to allow BP come up and permit aggressive diuresis with IV lasix. Restart suitable outpatient antihypertensive drugs when clinically appropriate. Revise regimen to ensure [id number] excellent BP control and guidance counselor patient on the injurious effects of uncontrolled hypertension. Nonpharmacologic measures to control hypertension like weight loss, salt restriction and exercise discussed. Importance of adherence to treatment regimen and attainment of normotension emphasized. 6. DVT prophylaxis - Lovenox 40 mg SQ q 24 hours. 7. Advance directives - Full code
[2019-09-21 19:35] LABS: URINE APPEARANCE CLEAR; URINE BILIRUBIN NEGATIVE (NEGATIVE); URINE COLOR YELLOW; URINE GLUCOSE (UA) NEGATIVE (NEGATIVE); URINE KETONE NEGATIVE (NEGATIVE); URINE LEUK ESTERASE NEGATIVE (NEGATIVE); URINE NITRITE NEGATIVE (NEGATIVE); URINE PROTEIN NEGATIVE (NEGATIVE); URINE UROBILINOGEN 0.2 mg/dL (0.2-1.0)
--- NOTE | 2019-09-21 20:10 | HP ---
CHIEF COMPLAINT: shortness of breath, cough PCP: Dr. Hill Cardiology: Dr. Leonidas Palm HISTORY OF PRESENT ILLNESS: Pool Saul is a 54 year old male with a past medical history of CHF (previous echo noting EF 15-20%), pacemaker placement, HTN, remote CVA (poor gait and memory deficits) who is presenting from his PCP's office for likely CHF decompensation. The patient had been having shortness of breath for the last 3 days along with a non-productive cough. He had recent sick contacts of his 2 daughters with confirmed Influenza A. Over the last 3 days, the patient was also noted to have increased dyspnea on exertion, orthopnea, leg swelling. Yesterday, the patient had a documented fever of 103.6 as per the family. Patient endorsed that he was not following a strict diet and drinking lots of water which was confirmed by the family who was at bedside. As per the family, the patient was told to take his Lasix 20mg PO by his security investigator on MWF when he started to take Entresto. On interview, patient was on BiPAP and stated that he felt better. Denied current cp, sob, abd pain, n/v/c/d, fever, chills, dizziness, lightheadness, dysuria, hematuria, numbness, tingling, visual changes, focal weakness. Denies recent travel. Has a dry weight of 170lbs as per family. ER course was notable for: (1) BP 88/58, placed on BiPAP now saturating at 100% (2) plts 107, Na 134, K 5.2, CK >1000, BNP 1885 (3) CXR with mild atelectasis in R lung base and superimposed infiltrates (4) Given ceftriaxone, azithromycin, Lasix 20mg IV, Duoneb, Solumedrol Recent Travel: denies PAST MEDICAL HISTORY: as above PAST SURGICAL HISTORY: pacemaker placement Social History: Smoking: former smoker, quit 2 years prior. Unknown longevity of smoking, variable between family member accounts from 5 years to 20 years. Alcohol: denies Drugs: denies Retired for 20 years. Previously work for [employer] in [place]. Allergies No Known Allergies Allergy (Verified 09/21/19 15:01) HOME MEDICATIONS: Home Medications Medication Instructions Recorded Aspirin 81 mg PO DAILY 09/21/19 Atorvastatin Calcium [Lipitor] 20 mg PO HS 09/21/19 Carvedilol [Coreg -] 1 tab PO BID 09/21/19 Citalopram Hydrobromide 20 mg PO DAILY 09/21/19 [Citalopram HBr] Donepezil HCl [Aricept -] 10 mg PO DAILY 09/21/19 Metformin HCl [Glucophage] 500 mg PO DAILY 09/21/19 Sacubitril/Valsartan [Entresto 24 1 tab PO BID 09/21/19 mg-26 mg Tablet] REVIEW OF SYSTEMS CONSTITUTIONAL: Absent: fever, chills, diaphoresis, generalized weakness, malaise, loss of appetite, weight change HEENT: Absent: rhinorrhea, nasal congestion, throat pain, throat swelling, difficulty swallowing, visual changes CARDIOVASCULAR: peripheral edema Absent: chest pain, syncope, palpitations, irregular heart rate, lightheadedness RESPIRATORY: cough, shortness of breath, dyspnea with exertion, orthopnea Absent: wheezing, stridor, hemoptysis GASTROINTESTINAL: Absent: abdominal pain, abdominal distension, nausea, vomiting, diarrhea, constipation, GENITOURINARY: Absent: dysuria, frequency, urgency, hesitancy, hematuria, flank pain MUSCULOSKELETAL: Absent: myalgia, arthralgia, joint swelling, back pain, neck pain SKIN: Absent: rash, itching, pallor HEMATOLOGIC/IMMUNOLOGIC: Absent: easy bleeding, easy bruising, lymphadenopathy, frequent infections ENDOCRINE: Absent: unexplained weight gain, unexplained weight loss, heat intolerance, cold intolerance NEUROLOGIC: Absent: headache, focal weakness or paresthesias, dizziness, unsteady gait, seizure, mental status changes, PSYCHIATRIC: Absent: anxiety, depression, suicidal or homicidal ideation, hallucinations. PHYSICAL EXAMINATION Vital Signs - 24 hr 09/21/19 09/21/19 09/21/19 15:00 17:42 18:21 Temperature 99.6 F Pulse Rate 63 Pulse Rate [ 63 Left] Respiratory 28 H Rate Blood Pressure 105/66 Blood Pressure 91/57 L 99/48 L [Right Arm] O2 Sat by Pulse 96 100 Oximetry (%) 09/21/19 09/21/19 09/21/19 18:26 18:28 18:48 Temperature Pulse Rate 63 Pulse Rate [ Left] Respiratory Rate Blood Pressure Blood Pressure 88/58 L [Right Arm] O2 Sat by Pulse 100 100 100 Oximetry (%) 09/21/19 19:14 Temperature Pulse Rate Pulse Rate [ 64 Left] Respiratory 20 Rate Blood Pressure Blood Pressure 100/56 L [Right Arm] O2 Sat by Pulse 100 Oximetry (%) GENERAL: Awake, alert, and fully oriented, in no acute distress. On BiPAP. English speaking. HEAD: Normal with no signs of trauma. EYES: Pupils equal, round and reactive to light, extraocular movements intact, sclera anicteric, conjunctiva clear. EARS, NOSE, THROAT: Moist mucous membranes. NECK: Normal range of motion, supple without lymphadenopathy, JVD. LUNGS: Significant coarse breath sounds throughout. Dullness to breath sounds on the RLL. HEART: Regular rate and rhythm, normal S1 and S2. Poorly auscultated heart sounds due to coarse breath sounds. ABDOMEN: Soft, nontender, not distended, normoactive bowel sounds, no guarding, no rebound, no masses. MUSCULOSKELETAL: Normal range of motion at all joints. No bony deformities or tenderness. UPPER EXTREMITIES: 2+ pulses, warm, well-perfused. No cyanosis. No clubbing. No peripheral edema. LOWER EXTREMITIES: 2+ pulses, warm, well-perfused. No calf tenderness. 1+ peripheral edema midway up the leg. NEUROLOGICAL: Cranial nerves II-XII intact. 5/5 muscle strength bilaterally upper and lower extremities. Sensation intact to gross touch throughout. PSYCHIATRIC: Cooperative. Good eye contact. Appropriate mood and affect. SKIN: Warm, dry, normal turgor, no rashes or lesions noted, normal capillary refill. Laboratory Results - last 24 hr 09/21/19 09/21/19 09/21/19 16:00 16:00 16:30 WBC 4.6 RBC 4.31 Hgb 12.5 Hct 38.0 MCV 88.2 MCH 29.0 MCHC 32.9 RDW 14.5 D Plt Count 107 L MPV 9.1 Absolute Neuts (auto) 2.5 Neutrophils % 54.0 D Lymphocytes % 30.8 Monocytes % 14.1 H Eosinophils % 0.8 Basophils % 0.3 Nucleated RBC % 0 Sodium 134 L Potassium 5.2 H Chloride 105 Carbon Dioxide 19 L Anion Gap 10 BUN 18.7 H Creatinine 1.2 Est GFR (CKD-EPI)AfAm 77.88 Est GFR (CKD-EPI)NonAf 67.19 Random Glucose 95 Calcium 9.0 Total Bilirubin 0.7 AST 70 H ALT 37 Alkaline Phosphatase 67 Creatine Kinase > 1000 H Creatine Kinase Index 0.0 CK-MB (CK-2) 2.81 Troponin I 0.04 B-Natriuretic Peptide 1885.1 H Total Protein 7.5 Albumin 3.3 L Urine Color Urine Appearance Urine pH Ur Specific [place] Urine Protein Urine Glucose (UA) Urine Ketones Urine Blood Urine Nitrite Urine Bilirubin Urine Urobilinogen Ur Leukocyte Esterase Influenza A (Rapid) Influenza B (Rapid) 09/21/19 09/21/19 17:10 19:05 WBC RBC Hgb Hct MCV MCH MCHC RDW Plt Count MPV Absolute Neuts (auto) Neutrophils % Lymphocytes % Monocytes % Eosinophils % Basophils % Nucleated RBC % Sodium Potassium Chloride Carbon Dioxide Anion Gap BUN Creatinine Est GFR (CKD-EPI)AfAm Est GFR (CKD-EPI)NonAf Random Glucose Calcium Total Bilirubin AST ALT Alkaline Phosphatase Creatine Kinase Creatine Kinase Index CK-MB (CK-2) Troponin I B-Natriuretic Peptide Total Protein Albumin Urine Color Yellow Urine Appearance Clear Urine pH 5.0 D Ur Specific [place] 1.014 Urine Protein Negative Urine Glucose (UA) Negative Urine Ketones Negative Urine Blood Negative Urine Nitrite Negative Urine Bilirubin Negative Urine Urobilinogen 0.2 Ur Leukocyte Esterase Negative Influenza A (Rapid) Negative Influenza B (Rapid) Negative EKG--> sinus bradycardia with 1st degree AV block, age indeterminate anterolateral infarct, T wave abnormality in the inferior leads, QTc 449 similar to previous EKGs ASSESSMENT/PLAN: Pool Saul is a 54 year old male with a past medical history of CHF (previous echo noting EF 15-20%), pacemaker placement, HTN, remote CVA (poor gait and memory deficits) admitted for CHF decompensation secondary to PNA and dietary non-adherence. CHF Decompensation - likely secondary to PNA and dietary non-adherence - CXR as above - elevated BNP - given Lasix 20mg IV in ED, add one time of Lasix 40mg IV - continue Lasix 40mg IV daily - will need optimization of Lasix in outpatient - daily weights - I+Os - fluid (1L/24hrs) and salt restriction - previous echo noting severely dilated LV, reduced LV systolic function, EF 15- 20%, severe hypokinesis of the L ventricle - echo ordered - cardiology consulted - continue home Entresto - hold home carvedilol in setting of bradycardia and low BP, can vitals improve Community acquired Pneumonia - recent sick contacts - CURB-65 - 1, requiring BiPAP and poor cardiac status - CXR as above - continue ceftriaxone and azithromycin - O2 as needed and deescalate as tolerated - Legionella/strep urine antigen - sputum culture - Flu negative Elevated CPK - no recent falls/trauma - can be elevated in acute infection - UA with no acute pathology - asymptomatic, continue to monitor Hyponatremia/Hyperkalemia - likely in setting of CHF, continue to monitor as treating the CHF Hx of CVA - continue home aspirin and Lipitor Memory deficits - unknown disorder but sees Dr. Dailey outpatient - continue home donepezil and citalopram DVT PPx - Lovenox 40 mg subq daily FEN - no standing fluids, caution with fluids in setting of CHF decompensation, 1L/ 24 hour fluid restriction - continue to monitor electrolytes and replete as necessary, hyponatremia and hypokalemia noted and treating for CHF - sodium restricted diet Dispo - admit to telemetry - has had medication reconciliation completed Family Medical History Family History: Denies (does not know his father) Visit type - Emergency Visit Emergency Visit: Yes ED Registration Date: 09/21/19 Care time: The patient presented to the Emergency Department on the above date and was hospitalized for further evaluation of their emergent condition. - New Patient This patient is new to me today: Yes Date on this admission: 09/21/19 - Critical Care Critical Care patient: No
[2019-09-21] MEDS ORDERED: ATORVASTATIN CA 20 MG TABLET (FP) ONE (20:59)
[2019-09-21] MEDS ORDERED: ATORVASTATIN CA 20 MG TABLET (FP) PO SCH (22:00)
[2019-09-21] MEDS: SACUBITRIL/VALSARTAN 24 MG-26 MG TABLET PO SCH (22:15)
[2019-09-22] MEDS ORDERED: levETIRAcetam 500 MG/5 ML INJECTION VIAL IVPB ONE (01:15)
[2019-09-22 07:08] LABS: BASO % 0.1 % (0-2.0); HEMOGLOBIN 13.1 GM/dL (11.7-16.9); LYMPH % 25.9 % (8-40); MCH 28.7 pg (25.7-33.7); MCHC 32.7 g/dl (32.0-35.9); MEAN CELL VOLUME 87.8 fl (80-96); MEAN PLT VOLUME 9.4 fl (7.5-11.1); MONO % 7.3 % (3.8-10.2); NEUT % 66.7 % (42.8-82.8); PLATELET COUNT 122 K/MM3 (134-434); RBC 4.56 M/mm3 (4.00-5.60); RDW 14.4 % (11.9-15.9); WHITE BLOOD COUNT 2.5 K/mm3 (4.0-10.0)
[2019-09-22 07:57] LABS: ALBUMIN 3.6 g/dl (3.4-5.0); BILIRUBIN,TOTAL 0.5 mg/dL (0.2-1); BLOOD UREA NITROGEN 25.5 mg/dL (7-18); CALCIUM 8.7 mg/dL (8.5-10.1); CREATININE 1.2 mg/dL (0.55-1.3); MAGNESIUM 2.2 mg/dL (1.8-2.4); PHOSPHOROUS 4.3 mg/dL (2.5-4.9); POTASSIUM 4.3 mmol/L (3.5-5.1); TOT PROT 8.3 g/dl (6.4-8.2)
[2019-09-22] MEDS ORDERED: CLINDAMYCIN PHOSPHATE 1% TOPICAL SOLUTION 30 ML BOTTLE TP SCH (10:00)
--- NOTE | 2019-09-22 11:29 | EKG ---
Test Reason : Blood Pressure : / mmHG Vent. Rate : 058 BPM Atrial Rate : 058 BPM P-R Int : 222 ms QRS Dur : 128 ms QT Int : 458 ms P-R-T Axes : 019 025 -66 degrees QTc Int : 449 ms SINUS BRADYCARDIA WITH 1ST DEGREE A-V BLOCK NON-SPECIFIC INTRA-VENTRICULAR CONDUCTION BLOCK POSSIBLE ANTEROLATERAL INFARCT (CITED ON OR BEFORE 07-DEC-2017) T WAVE ABNORMALITY, CONSIDER INFERIOR ISCHEMIA ABNORMAL ECG WHEN COMPARED WITH ECG OF 22-MAR-2018 15:40, QUESTIONABLE CHANGE IN INITIAL FORCES OF LATERAL LEADS INVERTED T WAVES HAVE REPLACED NONSPECIFIC T WAVE ABNORMALITY IN INFERIOR LEADS NONSPECIFIC T WAVE ABNORMALITY NOW EVIDENT IN ANTERIOR LEADS Confirmed by Abdelrahman Parekh MD ([id number]) on 09/22/2019 11:29:29 AM Referred By: Confirmed By:Abdelrahman Parekh MD
[2019-09-22] MEDS: SACUBITRIL/VALSARTAN 24 MG-26 MG TABLET PO SCH ×2 (11:51→22:15)
[2019-09-22] MEDS: DONEPEZIL HCL 10 MG TABLET (FP) PO SCH (11:51)
[2019-09-22] MEDS: CITALOPRAM HYDROBROMIDE 20 MG TABLET PO SCH (11:51)
[2019-09-22] MEDS: ASPIRIN 81 MG CHEWABLE TABLETS PO SCH (11:51)
[2019-09-22] MEDS: ENOXAPARIN NA (PORCINE) 40 MG/0.4 ML DISP.SYRIN SQ SCH (11:52)
[2019-09-22] MEDS: FUROSEMIDE 40 MG/4 ML INJECTABLE VIAL IVPUSH SCH (11:52)
--- NOTE | 2019-09-22 12:06 | ECHO ---
Version: 1 Name: VITO CEE Exam: Adult Echocardiogram Study Date: 09/22/2019, 9:56 AM Age: 54 Years MMode/2D Measurements & Calculations IVSd: 1.16 cm LVIDs: 5.5 cm LVIDd: 6.2 cm LVPWd: 1.30 cm LAV (MOD-bp): 66.0 ml LVOT diam: 2.29 cm Ao root diam: 2.6 cm LA dimension: 4.8 cm Doppler Measurements & Calculations MV E max les: 102.2 cm/sec MV A max les: 57.8 cm/sec MV E/A: 1.77 Lat E/e': 15.3 Lat Peak E' Les: 6.7 cm/sec MR max P.1 mmHg Ao max P.0 mmHg Ao V2 max: 150.2 cm/sec Procedure Images were not obtained from all of the standard acoustic windows due to the limited scope of the s tudy. Left Ventricle The left ventricle is moderately dilated. Left ventricular systolic function is severely reduced. Ej ection Fraction = 20%. The transmitral spectral Doppler flow pattern is suggestive of pseudonormalization. There is septal dyskinesis. There is anterior wall dyskinesis. There is apical akinesis. There is apical ante rior wall akinesis. There is inferior wall akinesis. Right Ventricle The right ventricle is normal in size and function. There is a pacemaker lead in the right ventricle . Atria The left atrium is mildly dilated. Right atrial size is normal. Mitral Valve The mitral valve is normal in structure and function. There is mild mitral regurgitation. Tricuspid Valve The tricuspid valve is not well visualized, but is grossly normal. There is mild tricuspid regurgita tion. Aortic Valve The aortic valve is normal in structure and function. Pulmonic Valve The pulmonic valve is not well visualized. Great Vessels The aortic root is normal size. Normal aortic arch, descending and ascending aorta. Pericardium/Pleura There is no pericardial effusion. Summary Statements Images were not obtained from all of the standard acoustic windows due to the limited scope of the s tudy. The left ventricle is moderately dilated. Left ventricular systolic function is severely reduced. Ejection Fraction = 20%. The transmitral spectral Doppler flow pattern is suggestive of pseudonormalization. The right ventricle is normal in size and function. There is septal dyskinesis. There is anterior wall dyskinesis. There is apical akinesis. There is apical anterior wall akinesis. There is inferior wall akinesis. The left atrium is mildly dilated. There is a pacemaker lead in the right ventricle. Right atrial size is normal. The mitral valve is normal in structure and function. There is mild mitral regurgitation. The tricuspid valve is not well visualized, but is grossly normal. There is mild tricuspid regurgitation. The aortic valve is normal in structure and function. The pulmonic valve is not well visualized. The aortic root is normal size. Normal aortic arch, descending and ascending aorta There is no pericardial effusion. David Niremberg 09/22/2019, 12:06 PM Ordering Physician: Felix Foss Referring Physician: FELIX FOSS Performed By: Barbara Bailey
--- NOTE | 2019-09-22 12:47 | CON.CARD ---
Consult Consult Specialty:: Cardiology Referred by:: Hospitalist Reason for Consultation:: Cardiac evaluation - History of Present Illness Chief Complaint: Shortness of breath History of Present Illness: Patient is a 54 year old male well known to our service with underlying history of HTN, CAD, ischemic cardiomyopathy with systolic dysfunction and low LVEF 10% (HFrEF) and history of LV failure s/p ICD (07/17/18) HTN and CVA who presented to ED with shortness of breath and non-productive cough. He has had contacts with sick family member diagnosed with influenza. He complains of shortness of breath and leg swelling. He also had fever up to 103.6. He denies nausea, vomiting, diarrhea or abdominal pain. He denies headache or lightheadedness. Currently he is on Entresto which he has been tolerating. 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 Cardio/Vascular: Yes: CHF, HTN, [place], Other (ICD) Pulmonary: Yes: Other (pulmonary edema) - Past Surgical History Additional Surgical History: ICD implant - Alcohol/Substance Use Hx Alcohol Use: No - Smoking History Smoking history: Former smoker Have you smoked in the past 12 months: Yes Aproximately how many cigarettes per day: 3 - Social History ADL: Independent Home Medications - Allergies Allergies/Adverse Reactions: Allergies Allergy/AdvReac Type Severity Reaction Status Date / Time No Known Allergies Allergy Verified 09/21/19 15:01 - Home Medications Home Medications: Ambulatory Orders Aspirin 81 mg PO DAILY 09/21/19 Atorvastatin Calcium [Lipitor] 20 mg PO HS 09/21/19 Carvedilol [Coreg -] 1 tab PO BID 09/21/19 Citalopram Hydrobromide [Citalopram HBr] 20 mg PO DAILY 09/21/19 Donepezil HCl [Aricept -] 10 mg PO DAILY 09/21/19 Metformin HCl [Glucophage] 500 mg PO DAILY 09/21/19 Sacubitril/Valsartan [Entresto 24 mg-26 mg Tablet] 1 tab PO BID 09/21/19 Family Medical History Family History: Denies Review of Systems - Review of Systems Constitutional: reports: Fever. denies: Chills Cardiovascular: reports: Shortness of Breath. denies: Chest Pain, Palpitations Respiratory: reports: Cough, SOB. denies: Hemoptysis, Orthopnea, PND Gastrointestinal: denies: Abdominal Pain, Constipation, Diarrhea, Melena, Nausea , Rectal Bleeding, Vomiting Genitourinary: denies: Dysuria, Hematuria Neurological: denies: Dizziness, Headache, Seizure, Syncope Vital Signs: Vital Signs Temperature 97.7 F 09/22/19 11:51 Pulse Rate 73 09/22/19 11:51 Respiratory Rate 20 09/22/19 11:51 Blood Pressure 102/57 L 09/22/19 11:51 O2 Sat by Pulse Oximetry (%) 100 09/22/19 11:51 Neck: Yes: Supple Respiratory: Yes: Diminished, Rhonchi Gastrointestinal: Yes: Normal Bowel Sounds, Soft. No: Tenderness Cardiovascular: Yes: Regular Rate and Rhythm JVD: No Heart Sounds: Yes: S1, S2. No: Gallop Murmur: Yes: Systolic Murmur, Grade 1 Edema: Yes Edema: LLE: 1+, RLE: 1+ - Other Data Labs, Other Data: CBC, BMP 09/22/19 05:30 09/22/19 05:30 Troponin, BNP 09/21/19 09/21/19 16:00 16:00 Troponin I 0.04 B-Natriuretic Peptide 1885.1 H Laboratory Results - last 24 hr 09/21/19 09/21/19 09/21/19 16:00 16:00 16:30 WBC 4.6 RBC 4.31 Hgb 12.5 Hct 38.0 MCV 88.2 MCH 29.0 MCHC 32.9 RDW 14.5 D Plt Count 107 L MPV 9.1 Absolute Neuts (auto) 2.5 Neutrophils % 54.0 D Lymphocytes % 30.8 Monocytes % 14.1 H Eosinophils % 0.8 Basophils % 0.3 Nucleated RBC % 0 Sodium 134 L Potassium 5.2 H Chloride 105 Carbon Dioxide 19 L Anion Gap 10 BUN 18.7 H Creatinine 1.2 Est GFR (CKD-EPI)AfAm 77.88 Est GFR (CKD-EPI)NonAf 67.19 POC Glucometer Random Glucose 95 Hemoglobin A1c % Calcium 9.0 Phosphorus Magnesium Total Bilirubin 0.7 AST 70 H ALT 37 Alkaline Phosphatase 67 Creatine Kinase > 1000 H Creatine Kinase Index 0.0 CK-MB (CK-2) 2.81 Troponin I 0.04 B-Natriuretic Peptide 1885.1 H Total Protein 7.5 Albumin 3.3 L Urine Color Urine Appearance Urine pH Ur Specific [place] Urine Protein Urine Glucose (UA) Urine Ketones Urine Blood Urine Nitrite Urine Bilirubin Urine Urobilinogen Ur Leukocyte Esterase Influenza A (Rapid) Influenza B (Rapid) 09/21/19 09/21/19 09/22/19 17:10 19:05 05:30 WBC 2.5 L RBC 4.56 Hgb 13.1 Hct 40.0 MCV 87.8 MCH 28.7 MCHC 32.7 RDW 14.4 Plt Count 122 L MPV 9.4 Absolute Neuts (auto) 1.7 Neutrophils % 66.7 D Lymphocytes % 25.9 Monocytes % 7.3 Eosinophils % 0.0 D Basophils % 0.1 Nucleated RBC % 0 Sodium Potassium Chloride Carbon Dioxide Anion Gap BUN Creatinine Est GFR (CKD-EPI)AfAm Est GFR (CKD-EPI)NonAf POC Glucometer Random Glucose Hemoglobin A1c % Calcium Phosphorus Magnesium Total Bilirubin AST ALT Alkaline Phosphatase Creatine Kinase Creatine Kinase Index CK-MB (CK-2) Troponin I B-Natriuretic Peptide Total Protein Albumin Urine Color Yellow Urine Appearance Clear Urine pH 5.0 D Ur Specific [place] 1.014 Urine Protein Negative Urine Glucose (UA) Negative Urine Ketones Negative Urine Blood Negative Urine Nitrite Negative Urine Bilirubin Negative Urine Urobilinogen 0.2 Ur Leukocyte Esterase Negative Influenza A (Rapid) Negative Influenza B (Rapid) Negative 09/22/19 09/22/19 09/22/19 05:30 05:30 11:01 WBC RBC Hgb Hct MCV MCH MCHC RDW Plt Count MPV Absolute Neuts (auto) Neutrophils % Lymphocytes % Monocytes % Eosinophils % Basophils % Nucleated RBC % Sodium 135 L Potassium 4.3 Chloride 101 Carbon Dioxide 27 Anion Gap 7 L BUN 25.5 H Creatinine 1.2 Est GFR (CKD-EPI)AfAm 77.88 Est GFR (CKD-EPI)NonAf 67.19 POC Glucometer 127 Random Glucose 144 H Hemoglobin A1c % 5.8 Calcium 8.7 Phosphorus 4.3 Magnesium 2.2 Total Bilirubin 0.5 AST 43 H ALT 39 Alkaline Phosphatase 72 Creatine Kinase 1454 H Creatine Kinase Index 0.1 CK-MB (CK-2) 2.8 Troponin I B-Natriuretic Peptide Total Protein 8.3 H Albumin 3.6 Urine Color Urine Appearance Urine pH Ur Specific [place] Urine Protein Urine Glucose (UA) Urine Ketones Urine Blood Urine Nitrite Urine Bilirubin Urine Urobilinogen Ur Leukocyte Esterase Influenza A (Rapid) Influenza B (Rapid) Sinus bradycardia, T abnormality, nonspecific IVCD Echo: Report Reviewed Imaging - Results Chest X-ray: Report Reviewed (Atelectasis) EKG: Report Reviewed Problem List - Problems (1) Congestive heart failure (CHF) Code(s): I50.9 - HEART FAILURE, UNSPECIFIED Qualifiers: Heart failure type: unspecified Heart failure chronicity: acute on chronic Qualified Code(s): I50.9 - Heart failure, unspecified (2) Cerebrovascular disease Code(s): I67.9 - CEREBROVASCULAR DISEASE, UNSPECIFIED (3) Dilated cardiomyopathy Code(s): I42.0 - DILATED CARDIOMYOPATHY (4) Hyperlipidemia Code(s): E78.5 - HYPERLIPIDEMIA, UNSPECIFIED Qualifiers: Hyperlipidemia type: pure hypercholesterolemia Qualified Code(s): E78.00 - Pure hypercholesterolemia, unspecified; E78.0 - Pure hypercholesterolemia (5) AICD (automatic cardioverter/defibrillator) present Code(s): Z95.810 - PRESENCE OF AUTOMATIC (IMPLANTABLE) CARDIAC DEFIBRILLATOR Assessment/Plan 1. Shortness of breath c/w acute on chronic LV systolic failure 2. Ischemic dilated cardiomyopathy s/p ICD 3. HTN 4. CVA 5. Hypercholesterolemia 6. DM PLAN: 1. Continue Entresto 24/26 mg BID and monitor renal function 2. ASA 81 mg QD 3. Add Carvedilol 3.125 mg BID as BP tolerates 4. Atorvastatin 20 mg QHS 5. Echocardiography report noted 6. Diuretics (IV Furosemide) and monitor renal function and electrolytes 7. DVT prophylaxis Further plans are to follow Leonidas Palm MD
--- NOTE | 2019-09-22 15:23 | PN ---
Physical Exam: SUBJECTIVE: Patient seen and examined 54 y/o M, pmh of CHF rEF 15-20% on previous echo, LV failure s/p ICD (07/17/18) , HTN, remote CVA w/ poor gait and memory deficit presented with [id number], nonproductive cough, dyspnea, orthopnea, b/l leg swelling, admitted for CHF decompensation 2/2 to [facility]. Today pt is doing much better. Report improvement, still on BiPaP, communicating and O2 sating well. Denies f/c/n/v/d/chest pain. OBJECTIVE: Vital Signs Period Temp Pulse Resp BP Sys/Jones Pulse Ox Last 24 Hr 97.7 F-99.6 F 63-79 19-28 88-115/48-75 94-100 GENERAL: The patient is awake, alert, and fully oriented, in no acute distress. On BiPaP EYES: PERRL, extraocular movements intact, sclera anicteric ENT: oropharynx clear without exudates, moist mucous membranes. NECK: Trachea midline, full range of motion, supple. LUNGS: Breath sounds equal, clear to auscultation bilaterally, no wheezes, moderate crackles b/l, HEART: Regular rate and rhythm, S1, S2 without murmur, rub or gallop. ABDOMEN: Soft, nontender, nondistended, normoactive bowel sounds, no guarding EXTREMITIES: 2+ pulses, warm, b/l LE edema. NEUROLOGICAL: Normal speech, gait not observed. SKIN: Warm, dry, normal turgor, no rashes or lesions noted Laboratory Results - last 24 hr CBC,CMP WBC 2.5 K/mm3 (4.0-10.0) L 09/22/19 05:30 RBC 4.56 M/mm3 (4.00-5.60) 09/22/19 05:30 Hgb 13.1 GM/dL (11.7-16.9) 09/22/19 05:30 Hct 40.0 % (35.4-49) 09/22/19 05:30 MCV 87.8 fl (80-96) 09/22/19 05:30 MCH 28.7 pg (25.7-33.7) 09/22/19 05:30 MCHC 32.7 g/dl (32.0-35.9) 09/22/19 05:30 RDW 14.4 % (11.9-15.9) 09/22/19 05:30 Plt Count 122 K/MM3 (134-434) L 09/22/19 05:30 MPV 9.4 fl (7.5-11.1) 09/22/19 05:30 Absolute Neuts (auto) 1.7 K/mm3 (1.5-8.0) 09/22/19 05:30 Neutrophils % 66.7 % (42.8-82.8) D 09/22/19 05:30 Lymphocytes % 25.9 % (8-40) 09/22/19 05:30 Monocytes % 7.3 % (3.8-10.2) 09/22/19 05:30 Eosinophils % 0.0 % (0-4.5) D 09/22/19 05:30 Basophils % 0.1 % (0-2.0) 09/22/19 05:30 Nucleated RBC % 0 % (0-0) 09/22/19 05:30 Sodium 135 mmol/L (136-145) L 09/22/19 05:30 Potassium 4.3 mmol/L (3.5-5.1) 09/22/19 05:30 Chloride 101 mmol/L (98-107) 09/22/19 05:30 Carbon Dioxide 27 mmol/L (21-32) 09/22/19 05:30 Anion Gap 7 MMOL/L (8-16) L 09/22/19 05:30 BUN 25.5 mg/dL (7-18) H 09/22/19 05:30 Creatinine 1.2 mg/dL (0.55-1.3) 09/22/19 05:30 Est GFR (CKD-EPI)AfAm 77.88 09/22/19 05:30 Est GFR (CKD-EPI)NonAf 67.19 09/22/19 05:30 POC Glucometer 127 UNITS (80-120) 09/22/19 11:01 Random Glucose 144 mg/dL (74-106) H 09/22/19 05:30 Hemoglobin A1c % 5.8 % (4.2-6.3) 09/22/19 05:30 Calcium 8.7 mg/dL (8.5-10.1) 09/22/19 05:30 Phosphorus 4.3 mg/dL (2.5-4.9) 09/22/19 05:30 Magnesium 2.2 mg/dL (1.8-2.4) 09/22/19 05:30 Total Bilirubin 0.5 mg/dL (0.2-1) 09/22/19 05:30 AST 43 U/L (15-37) H 09/22/19 05:30 ALT 39 U/L (13-61) 09/22/19 05:30 Alkaline Phosphatase 72 U/L (45-117) 09/22/19 05:30 Creatine Kinase 1454 U/L (26-308) H 09/22/19 05:30 Creatine Kinase Index 0.1 % (0.0-5.0) 09/22/19 05:30 CK-MB (CK-2) 2.8 ng/mL (0.5-3.6) 09/22/19 05:30 Troponin I 0.04 ng/ml (0.00-0.05) 09/21/19 16:00 B-Natriuretic Peptide 1885.1 pg/ml (5-125) H 09/21/19 16:00 Total Protein 8.3 g/dl (6.4-8.2) H 09/22/19 05:30 Albumin 3.6 g/dl (3.4-5.0) 09/22/19 05:30 Active Medications Current Medications Aspirin (Asa -) 81 mg PO DAILY [facility] Last Admin: 09/22/19 11:51 Dose: 81 mg Atorvastatin Calcium (Lipitor -) 20 mg PO [facility] Citalopram Hydrobromide (Celexa -) 20 mg PO DAILY [facility] Last Admin: 09/22/19 11:51 Dose: 20 mg Donepezil HCl (Aricept -) 10 mg PO DAILY [facility] Last Admin: 09/22/19 11:51 Dose: 10 mg Enoxaparin Sodium (Lovenox -) 40 mg SQ DAILY [facility] Last Admin: 09/22/19 11:52 Dose: 40 mg Furosemide (Lasix Injection -) 40 mg IVPUSH DAILY [facility] Last Admin: 09/22/19 11:52 Dose: 40 mg Ceftriaxone Sodium 1 gm/ (Dextrose) 50 mls @ 200 mls/hr IVPB DAILY [facility]; Protocol Azithromycin (Zithromax 500mg Ivpb (Pre-Docked)) 500 mg in 250 mls @ 250 mls/ hr IVPB DAILY [facility] Sacubitril/Valsartan (Entresto 24 Mg-26 Mg Tablet) 1 tab PO BID [facility] Last Admin: 09/22/19 11:51 Dose: 1 tab Home Medications Medication Instructions Recorded Aspirin 81 mg PO DAILY 09/21/19 Atorvastatin Calcium [Lipitor] 20 mg PO HS 09/21/19 Carvedilol [Coreg -] 1 tab PO BID 09/21/19 Citalopram Hydrobromide 20 mg PO DAILY 09/21/19 [Citalopram HBr] Donepezil HCl [Aricept -] 10 mg PO DAILY 09/21/19 Metformin HCl [Glucophage] 500 mg PO DAILY 09/21/19 Sacubitril/Valsartan [Entresto 24 1 tab PO BID 09/21/19 mg-26 mg Tablet] Microbiology 09/21/19 22:20 Urine - Urine Clean Catch Legionella Antigen - Final 09/21/19 22:20 Urine - Urine Clean Catch Streptococcus pneumoniae Antigen ( M - Final ASSESSMENT/PLAN: 54 y/o M, pmh of CHF rEF 15-20% on previous echo, LV failure s/p ICD (07/17/18) , HTN, remote CVA w/ poor gait and memory deficit presented with [id number], nonproductive cough, dyspnea, orthopnea, b/l leg swelling, admitted for CHF decompensation 2/2 to [facility] #CHF exacerbation 2/2 to [facility]-CAP CHF rEF 20%, likely 2/2 to DCM from ischemic vs nonischemic cardiomyopathy as per chart Pt has been candidate for ICD but deferred for a Life vest- status unknown Azithromycin 500 and Rocephin 1g Cont IV Lasix 40 Pt on BiPaP- will try to wean off Cardio consulted- appreciate consult As per Cardio- cont Entresto 24/26 BID, ASA 81, Coreg 3.125 BID, Liptor 20 HS Was recom plavix 75 in the past, will f/u the need for it #Mild hyperkalemia now resolved Type 4 RTA from entresto monitor Ca, phosphate, CPK UCx neg for legionella #Elevated CK CK trending up- 1000>1454 monitor #Hypoalbuminemia dietary protein intake #DM ISS #HTN Coreg 3.125 BID #DVTppx Lovenox 40 FEN PO dieet monitor lytes Dispo: cont abx and lasix, speak with to confirm meds- donepezil? plavix? LifeVest?, reassess pt's symptoms in am, if pt stable and PNA resolved can consider d/c Visit type - Emergency Visit Emergency Visit: Yes ED Registration Date: 09/21/19 Care time: The patient presented to the Emergency Department on the above date and was hospitalized for further evaluation of their emergent condition. - New Patient This patient is new to me today: Yes Date on this admission: 09/23/19 - Critical Care Critical Care patient: No - Discharge Referral Referred to [facility] Med P.C.: No ATTENDING PHYSICIAN STATEMENT I saw and evaluated the patient. I reviewed the resident's note and discussed the case with the resident. I agree with the resident's findings and plan as documented. SUBJECTIVE: OBJECTIVE: ASSESSMENT AND PLAN:
[2019-09-22] MEDS ORDERED: HEPARIN NA (PORCINE) 5,000 UNITS/ML 1ML VIAL SQ SCH (15:30)
[2019-09-22] MEDS ORDERED: DEXTROSE 5%-WATER - 50 ML IVPB ONE (17:49)
[2019-09-22] MEDS ORDERED: cefTRIAXone SODIUM 1 GM VIAL ONE (17:49)
[2019-09-22] MEDS: CEFTRIAXONE 1 GM in DEXTROSE 5%-WATER - 50 ML IVPB SCH (18:26)
[2019-09-22] MEDS: AZITHROMYCIN IVPB 500 MG/250 ML BAG IVPB SCH (19:33)
[2019-09-22] MEDS ORDERED: CARVEDILOL 3.125 MG TABLET (FP) PO SCH (22:00)
[2019-09-22] MEDS: ATORVASTATIN CA 20 MG TABLET (FP) PO SCH (22:14)
[2019-09-22] MEDS: CARVEDILOL 3.125 MG TABLET (FP) PO SCH (22:14)
[2019-09-23 08:44] LABS: ALBUMIN 3.2 g/dl (3.4-5.0); BILIRUBIN,TOTAL 0.6 mg/dL (0.2-1); BLOOD UREA NITROGEN 33.8 mg/dL (7-18); CALCIUM 8.4 mg/dL (8.5-10.1); MAGNESIUM 2.4 mg/dL (1.8-2.4); PHOSPHOROUS 3.4 mg/dL (2.5-4.9); POTASSIUM 4.1 mmol/L (3.5-5.1); TOT PROT 7.1 g/dl (6.4-8.2)
[2019-09-23 08:50] LABS: HEMATOCRIT 36.7 % (35.4-49); HEMOGLOBIN 12.1 GM/dL (11.7-16.9); MCHC 33.1 g/dl (32.0-35.9); MEAN CELL VOLUME 87.4 fl (80-96); MEAN PLT VOLUME 9.7 fl (7.5-11.1); RBC 4.19 M/mm3 (4.00-5.60); RDW 14.4 % (11.9-15.9); WHITE BLOOD COUNT 8.4 K/mm3 (4.0-10.0)
[2019-09-23] MEDS ORDERED: cefTRIAXone SODIUM 1 GM VIAL ONE (08:55)
[2019-09-23] MEDS ORDERED: DEXTROSE 5%-WATER - 50 ML IVPB ONE (08:55)
--- NOTE | 2019-09-23 08:59 | PN ---
Teaching Attending Note Name of Resident: Linus Kimball ATTENDING PHYSICIAN STATEMENT I saw and evaluated the patient. I reviewed the resident's note and discussed the case with the resident. I agree with the resident's findings and plan as documented. Seen and examined; please see resident note for further historical information. I personally verified all butler historical information and exam findings. Personally interpreted all imaging and diagnostics and reviewed appropriate consults. I reviewed all labs and vital signs as per resident note and EMR as documented. I agree with the above assessment and plan unless supplemented by myself in the following. Shortness of breath is slightly improved. Pending CT to further delineate if there is a true infiltration evident. Echocardiogram as discussed below. 10 item review of systems completed and is negative aside from as discussed in the subjective data in my own/the resident documentation. VS, labs, imaging reviewed NAD, AAO, resting comfortably in bed. RRR s1/2 no mgr Normal muscle tone, moves all 5 extremities with normal apparent strength Neck is supple, trachea midline, no roque LN Crackles improved, with sym expansion NT ND +BS no roque organomegaly CN2-12 wnl; no FND NC AT EOMI PERRLA Normal mood, appropriate behavior, euthymic affect No skin breakdown or rashes noted Echocardiogram returned with moderately dilated left ventricle with severely reduced systolic function consistent with 20% LVEF and pseudonormalization evident on the transmitral spectral flow Doppler. The right ventricle is normal and there is severe septal dyskinesis and anterior wall dyskinesis with apical akinesis and apical anterior akinesis. The inferior wall is entirely akinetic with left atrial dilation and appreciated and a pacemaker lead inserted into the RV. The tricuspid valve is normal in structure with mild regurgitation and no severe valvulopathy's are specified in the official read. Telemetry appreciated Chest x-ray appreciated CT pending ASSESSMENT AND PLAN: Patient presents with acute on chronic hypoxic respiratory failure secondary to CHF versus pneumonia. Right sided infiltrate will be further assessed with a CT scan to delineate if this is a true infiltration or not, as a CHF could lead to an atelectatic picture. The patient has had no true fevers throughout the hospitalization here. Furthermore, it is noted that the patient has no white count. Problems include: Acute on chronic respiratory failure secondary to severe systolic CHF exacerbation Severe Systolic CHF NYHA II-III Class C at baseline s/p AICD Potential community-acquired pneumonia, on ceftriaxone and azithromycin Thrombocytopenia chronic, evidenced since 2018. Checking HIV and HCV diagnostic Coronary artery disease, obtaining old records follow-up with cardiology [place]. Continue home medications. Elevated CK; trended down to 800. Observing. Hx HTN Hx HLD Likely LU Obesity (BMI 33); certified addiction counselor prior to DC Full Code
--- NOTE | 2019-09-23 08:59 | PN ---
Teaching Attending Note Name of Resident: Linus Kimball ATTENDING PHYSICIAN STATEMENT I saw and evaluated the patient. I reviewed the resident's note and discussed the case with the resident. I agree with the resident's findings and plan as documented. Seen and examined; please see resident note for further historical information. I personally verified all butler historical information and exam findings. Personally interpreted all imaging and diagnostics and reviewed appropriate consults. I reviewed all labs and vital signs as per resident note and EMR as documented. I agree with the above assessment and plan unless supplemented by myself in the following. Seen and examined, shortness of breath is improved. Pending placement telemetry. Pending cardiology evaluation. Continue on IV Lasix. Expect low normal blood pressures given his severely reduced ejection fraction, discussed parameters with the resident team. 10 item review of systems completed and is negative aside from as discussed in the subjective data in my own/the resident documentation. VS, labs, imaging reviewed NAD, AAO, resting comfortably in bed. Muffled heart sounds with diminished PMI, s1/2 no mgr Normal muscle tone, moves all 5 extremities with normal apparent strength Neck is supple, trachea midline, no roque LN Lungs CTAB with sym expansion NT ND +BS no roque organomegaly CN2-12 wnl; no FND NC AT EOMI PERRLA Normal mood, appropriate behavior, euthymic affect No skin breakdown or rashes noted Pending echocardiogram, images reviewed and still appears severely reduced with pseudonormalization. No pericardial effusion. EKG reviewed and shows sinus bradycardia with first-degree AV block and inverted T waves in the inferior leads Assessment and plan: Patient presents for severe systolic CHF exacerbation, on IV Lasix pending cardiology consultation. Problems include: Acute hypoxic respiratory failure secondary to CHF exacerbation NYHA class III CHF with structural changes corresponding to reduced ejection fraction of 15 to 20% with pseudonormalization evident on echocardiogram
[2019-09-23] MEDS: CEFTRIAXONE 1 GM in DEXTROSE 5%-WATER - 50 ML IVPB SCH (09:02)
[2019-09-23] MEDS: ENOXAPARIN NA (PORCINE) 40 MG/0.4 ML DISP.SYRIN SQ SCH (09:02)
[2019-09-23] MEDS: CITALOPRAM HYDROBROMIDE 20 MG TABLET PO SCH (09:03)
[2019-09-23] MEDS: DONEPEZIL HCL 10 MG TABLET (FP) PO SCH (09:03)
[2019-09-23] MEDS: FUROSEMIDE 40 MG/4 ML INJECTABLE VIAL IVPUSH SCH (09:03)
[2019-09-23] MEDS: CARVEDILOL 3.125 MG TABLET (FP) PO SCH ×2 (09:03→22:13)
[2019-09-23] MEDS: ASPIRIN 81 MG CHEWABLE TABLETS PO SCH (09:03)
[2019-09-23] MEDS: AZITHROMYCIN IVPB 500 MG/250 ML BAG IVPB SCH (09:03)
[2019-09-23] MEDS: SACUBITRIL/VALSARTAN 24 MG-26 MG TABLET PO SCH ×2 (09:04→22:13)
[2019-09-23 09:38] LABS: PLATELET COUNT 91 K/MM3 (134-434)
[2019-09-23] MEDS ORDERED: FLU VACCINE QUAD 60 MCG/0.5 ML (MDV 19-20) IM ONE (10:00)
[2019-09-23] MEDS ORDERED: PNEUMOCOCCAL 23 VACCINE 0.5 ML VIAL IM ONE (10:00)
[2019-09-23] MEDS ORDERED: PNEUMOC 13-VAL CONJ-DIP CRM/PF 0.5 ML DISP.SYRIN IM ONE (10:00)
--- NOTE | 2019-09-23 11:23 | PN ---
Progress Note, Physician History of Present Illness: BLACK and cough improving with diuresis. - Current Medication List Current Medications: Active Medications Aspirin (Asa -) 81 mg PO DAILY [facility] Last Admin: 09/23/19 09:03 Dose: 81 mg Atorvastatin Calcium (Lipitor -) 20 mg PO HS [facility] Last Admin: 09/22/19 22:14 Dose: 20 mg Carvedilol (Coreg -) 3.125 mg PO BID [facility] Last Admin: 09/23/19 09:03 Dose: 3.125 mg Citalopram Hydrobromide (Celexa -) 20 mg PO DAILY [facility] Last Admin: 09/23/19 09:03 Dose: 20 mg Donepezil HCl (Aricept -) 10 mg PO DAILY [facility] Last Admin: 09/23/19 09:03 Dose: 10 mg Enoxaparin Sodium (Lovenox -) 40 mg SQ DAILY [facility] Last Admin: 09/23/19 09:02 Dose: 40 mg Furosemide (Lasix Injection -) 40 mg IVPUSH DAILY [facility] Last Admin: 09/23/19 09:03 Dose: 40 mg Ceftriaxone Sodium 1 gm/ (Dextrose) 50 mls @ 200 mls/hr IVPB DAILY [facility]; Protocol Last Admin: 09/23/19 09:02 Dose: 200 mls/hr Azithromycin (Zithromax 500mg Ivpb (Pre-Docked)) 500 mg in 250 mls @ 250 mls/ hr IVPB DAILY [facility] Last Admin: 09/23/19 09:03 Dose: 250 mls/hr Sacubitril/Valsartan (Entresto 24 Mg-26 Mg Tablet) 1 tab PO BID [facility] Last Admin: 09/23/19 09:04 Dose: 1 tab - Objective Vital Signs: Vital Signs Temperature 98.1 F 09/23/19 06:00 Pulse Rate 63 09/23/19 06:00 Respiratory Rate 20 09/23/19 06:00 Blood Pressure 93/56 L 09/23/19 06:00 O2 Sat by Pulse Oximetry (%) 98 09/23/19 00:34 Constitutional: Yes: No Distress, Calm Neck: Yes: Supple Cardiovascular: Yes: Regular Rate and Rhythm Respiratory: Yes: Regular, Diminished Gastrointestinal: Yes: Normal Bowel Sounds, Soft Extremities: Yes: Other (Warm and well perfused) Edema: No Labs: CBC, BMP 09/23/19 06:57 09/23/19 06:57 Problem List - Problems (1) AICD (automatic cardioverter/defibrillator) present Code(s): Z95.810 - PRESENCE OF AUTOMATIC (IMPLANTABLE) CARDIAC DEFIBRILLATOR (2) Congestive heart failure (CHF) Code(s): I50.9 - HEART FAILURE, UNSPECIFIED Qualifiers: Heart failure type: combined systolic and diastolic Heart failure chronicity: acute on chronic Qualified Code(s): I50.43 - Acute on chronic combined systolic (congestive) and diastolic (congestive) heart failure (3) Dilated cardiomyopathy Code(s): I42.0 - DILATED CARDIOMYOPATHY (4) Hyperlipidemia Code(s): E78.5 - HYPERLIPIDEMIA, UNSPECIFIED Qualifiers: Hyperlipidemia type: pure hypercholesterolemia Qualified Code(s): E78.00 - Pure hypercholesterolemia, unspecified; E78.0 - Pure hypercholesterolemia Assessment/Plan 09/22/2019 Echo: Moderate dilated LV with severely decreased LVEF 20%, Grade II diastolic dysfunction, normal RV size and fxn, pacemaker RV, mild MR, TR 1. Shortness of breath c/w acute on chronic LV systolic failure resolving 2. Ischemic dilated cardiomyopathy s/p ICD 3. HTN 4. CVA 5. Hypercholesterolemia 6. DM PLAN: 1. Diuretics (IV Furosemide), add eplerenone 25 qd and monitor diuretic response , renal function and electrolytes 2. Continue Entresto 24/26 mg BID and monitor renal function, ASA 81 mg QD, Lipitor 20 qd, Carvedilol 3.125 mg BID as hemodynamics tolerate tolerates 3. Empiric abx course, f/u chest CT
--- NOTE | 2019-09-23 11:48 | PN ---
Physical Exam: SUBJECTIVE: Patient seen and examined Today pt reports improvement and is able to breath much better. Pt is off oxygen and ambulating well w/out SOB or O2 desaturation. Denies f/c/n/v/d/chest pain. OBJECTIVE: Vital Signs Period Temp Pulse Resp BP Sys/Jones Pulse Ox Last 24 Hr 97.7 F-98.9 F 63-74 18-20 86-118/33-71 98-100 GENERAL: The patient is awake, alert, and fully oriented, in no acute distress. On BiPaP EYES: PERRL, extraocular movements intact, sclera anicteric ENT: oropharynx clear without exudates, moist mucous membranes. NECK: Trachea midline, full range of motion, supple. LUNGS: Breath sounds equal, clear to auscultation bilaterally, no wheezes, moderate crackles b/l, HEART: Regular rate and rhythm, S1, S2 without murmur, rub or gallop. ABDOMEN: Soft, nontender, nondistended, normoactive bowel sounds, no guarding EXTREMITIES: 2+ pulses, warm, b/l LE edema. NEUROLOGICAL: Normal speech, gait not observed. SKIN: Warm, dry, normal turgor, no rashes or lesions noted Laboratory Results - last 24 hr 09/23/19 09/23/19 06:57 06:57 WBC 8.4 RBC 4.19 Hgb 12.1 Hct 36.7 MCV 87.4 MCH 29.0 MCHC 33.1 RDW 14.4 Plt Count 91 L D MPV 9.7 Sodium 138 Potassium 4.1 Chloride 103 Carbon Dioxide 29 Anion Gap 6 L BUN 33.8 H Creatinine 1.0 Est GFR (CKD-EPI)AfAm 97.08 Est GFR (CKD-EPI)NonAf 83.76 Random Glucose 104 Calcium 8.4 L Phosphorus 3.4 Magnesium 2.4 Total Bilirubin 0.6 AST 43 H ALT 43 Alkaline Phosphatase 60 Creatine Kinase 804 H Creatine Kinase Index 0.2 CK-MB (CK-2) 2.3 Total Protein 7.1 Albumin 3.2 L Active Medications Current Medications Aspirin (Asa -) 81 mg PO DAILY [facility] Last Admin: 09/23/19 09:03 Dose: 81 mg Atorvastatin Calcium (Lipitor -) 20 mg PO HS [facility] Last Admin: 09/22/19 22:14 Dose: 20 mg Carvedilol (Coreg -) 3.125 mg PO BID [facility] Last Admin: 09/23/19 09:03 Dose: 3.125 mg Citalopram Hydrobromide (Celexa -) 20 mg PO DAILY [facility] Last Admin: 09/23/19 09:03 Dose: 20 mg Donepezil HCl (Aricept -) 10 mg PO DAILY [facility] Last Admin: 09/23/19 09:03 Dose: 10 mg Enoxaparin Sodium (Lovenox -) 40 mg SQ DAILY [facility] Last Admin: 09/23/19 09:02 Dose: 40 mg Furosemide (Lasix Injection -) 40 mg IVPUSH DAILY [facility] Last Admin: 09/23/19 09:03 Dose: 40 mg Ceftriaxone Sodium 1 gm/ (Dextrose) 50 mls @ 200 mls/hr IVPB DAILY [facility]; Protocol Last Admin: 09/23/19 09:02 Dose: 200 mls/hr Azithromycin (Zithromax 500mg Ivpb (Pre-Docked)) 500 mg in 250 mls @ 250 mls/ hr IVPB DAILY [facility] Last Admin: 09/23/19 09:03 Dose: 250 mls/hr Sacubitril/Valsartan (Entresto 24 Mg-26 Mg Tablet) 1 tab PO BID [facility] Last Admin: 09/23/19 09:04 Dose: 1 tab Home Medications Medication Instructions Recorded Aspirin 81 mg PO DAILY 09/21/19 Atorvastatin Calcium [Lipitor] 20 mg PO HS 09/21/19 Carvedilol [Coreg -] 1 tab PO BID 09/21/19 Citalopram Hydrobromide 20 mg PO DAILY 09/21/19 [Citalopram HBr] Donepezil HCl [Aricept -] 10 mg PO DAILY 09/21/19 Metformin HCl [Glucophage] 500 mg PO DAILY 09/21/19 Sacubitril/Valsartan [Entresto 24 1 tab PO BID 09/21/19 mg-26 mg Tablet] Microbiology 09/21/19 22:20 Urine - Urine Clean Catch Legionella Antigen - Final 09/21/19 22:20 Urine - Urine Clean Catch Streptococcus pneumoniae Antigen ( M - Final ASSESSMENT/PLAN: 54 y/o M, pmh of CHF rEF 15-20% on previous echo, LV failure s/p ICD (07/17/18) , HTN, remote CVA w/ poor gait and memory deficit presented with [id number], nonproductive cough, dyspnea, orthopnea, b/l leg swelling, admitted for CHF decompensation 2/2 to PNA #CHF exacerbation 2/2 to PNA-CAP CHF rEF 20%, likely 2/2 to DCM from ischemic vs nonischemic cardiomyopathy as per chart Pt has been candidate for ICD but deferred for a Life vest- status unknown NYHA II-III Class C at baseline Azithromycin 500 and Rocephin 1g Cont IV Lasix 40 Off BiPaP Cardio consulted- appreciate consult As per Cardio- cont Entresto 24/ BID, ASA 81, Coreg 3.125 BID, Liptor 20 HS Was recom plavix 75 in the past, will f/u the need for it Cardiac cath done by [facility], will obtain records. (Dr. Sage Lowery- [employer] [phone], [id number]) R/p CXR pending read CT chest ordered #Elevated CK CK trending down- 1000>1454>804 monitor #Thrombocytopenia likely chronic Check HIV and HCV status #Hypoalbuminemia dietary protein intake #DM ISS #HTN Coreg 3.125 BID #DVTppx Lovenox 40 FEN PO dieet monitor lytes Dispo: cont abx and lasix, speak with to confirm meds- donepezil? plavix? LifeVest?, reassess pt's symptoms in am, if pt stable and PNA resolved can consider d/c Visit type - Emergency Visit Emergency Visit: Yes ED Registration Date: 09/21/19 Care time: The patient presented to the Emergency Department on the above date and was hospitalized for further evaluation of their emergent condition. - New Patient This patient is new to me today: Yes Date on this admission: 09/23/19 - Critical Care Critical Care patient: No - Discharge Referral Referred to [facility] Med P.C.: No ATTENDING PHYSICIAN STATEMENT I saw and evaluated the patient. I reviewed the resident's note and discussed the case with the resident. I agree with the resident's findings and plan as documented. SUBJECTIVE: OBJECTIVE: ASSESSMENT AND PLAN:
[2019-09-23] MEDS: EPLERENONE 25 MG TABLET PO SCH (15:26)
[2019-09-23] MEDS ORDERED: PT OWN MED DRAWER 7, Y5N ONE (21:52)
[2019-09-23] MEDS: ATORVASTATIN CA 20 MG TABLET (FP) PO SCH (22:13)
[2019-09-24 07:44] LABS: HEMATOCRIT 37.8 % (35.4-49); HEMOGLOBIN 12.4 GM/dL (11.7-16.9); MCH 28.7 pg (25.7-33.7); MCHC 32.7 g/dl (32.0-35.9); MEAN CELL VOLUME 87.7 fl (80-96); PLATELET COUNT 120 K/MM3 (134-434); RBC 4.31 M/mm3 (4.00-5.60); RDW 14.3 % (11.9-15.9); WHITE BLOOD COUNT 5.1 K/mm3 (4.0-10.0)
[2019-09-24 08:28] LABS: ALK PHOS 60 U/L (45-117); ANION GAP 4 MMOL/L (8-16); BILIRUBIN,TOTAL 0.6 mg/dL (0.2-1); BLOOD UREA NITROGEN 20.9 mg/dL (7-18); CALCIUM 8.4 mg/dL (8.5-10.1); CHLORIDE 104 mmol/L (98-107); CO2 27 mmol/L (21-32); CREATININE 0.9 mg/dL (0.55-1.3); GLUCOSE,RANDOM 93 mg/dL (74-106); MAGNESIUM 2.1 mg/dL (1.8-2.4); POTASSIUM 4.3 mmol/L (3.5-5.1); SGOT/AST 56 U/L (15-37); SGPT/ALT 80 U/L (13-61); SODIUM 136 mmol/L (136-145); TOT PROT 6.6 g/dl (6.4-8.2)
[2019-09-24] MEDS ORDERED: PT OWN MED DRAWER 7, Y5N ONE (09:07)
[2019-09-24] MEDS ORDERED: DEXTROSE 5%-WATER - 50 ML IVPB ONE ×2 (09:08→14:11)
[2019-09-24] MEDS ORDERED: cefTRIAXone SODIUM 1 GM VIAL ONE ×2 (09:08→14:11)
[2019-09-24] MEDS: AZITHROMYCIN IVPB 500 MG/250 ML BAG IVPB SCH (10:02)
[2019-09-24] MEDS: CITALOPRAM HYDROBROMIDE 20 MG TABLET PO SCH (10:05)
[2019-09-24] MEDS: CARVEDILOL 3.125 MG TABLET (FP) PO SCH (10:05)
[2019-09-24] MEDS: DONEPEZIL HCL 10 MG TABLET (FP) PO SCH (10:05)
[2019-09-24] MEDS: ASPIRIN 81 MG CHEWABLE TABLETS PO SCH (10:05)
[2019-09-24] MEDS: ENOXAPARIN NA (PORCINE) 40 MG/0.4 ML DISP.SYRIN SQ SCH (10:06)
[2019-09-24] MEDS: EPLERENONE 25 MG TABLET PO SCH (10:06)
[2019-09-24] MEDS: FUROSEMIDE 40 MG/4 ML INJECTABLE VIAL IVPUSH SCH (10:06)
[2019-09-24] MEDS: SACUBITRIL/VALSARTAN 24 MG-26 MG TABLET PO SCH (10:06)
--- NOTE | 2019-09-24 10:20 | PN ---
Progress Note, Physician History of Present Illness: BLACK and cough improving with diuresis. - Current Medication List Current Medications: Active Medications Aspirin (Asa -) 81 mg PO DAILY [facility] Last Admin: 09/24/19 10:05 Dose: 81 mg Atorvastatin Calcium (Lipitor -) 20 mg PO HS [facility] Last Admin: 09/23/19 22:13 Dose: 20 mg Carvedilol (Coreg -) 3.125 mg PO BID [facility] Last Admin: 09/24/19 10:05 Dose: 3.125 mg Citalopram Hydrobromide (Celexa -) 20 mg PO DAILY [facility] Last Admin: 09/24/19 10:05 Dose: 20 mg Donepezil HCl (Aricept -) 10 mg PO DAILY [facility] Last Admin: 09/24/19 10:05 Dose: 10 mg Enoxaparin Sodium (Lovenox -) 40 mg SQ DAILY [facility] Last Admin: 09/24/19 10:06 Dose: 40 mg Eplerenone (Eplerenone) 25 mg PO DAILY [facility] Last Admin: 09/24/19 10:06 Dose: 25 mg Furosemide (Lasix Injection -) 40 mg IVPUSH DAILY [facility] Last Admin: 09/24/19 10:06 Dose: 40 mg Ceftriaxone Sodium 1 gm/ (Dextrose) 50 mls @ 200 mls/hr IVPB DAILY [facility]; Protocol Last Admin: 09/23/19 09:02 Dose: 200 mls/hr Azithromycin (Zithromax 500mg Ivpb (Pre-Docked)) 500 mg in 250 mls @ 250 mls/ hr IVPB DAILY [facility] Last Admin: 09/24/19 10:02 Dose: 250 mls/hr Sacubitril/Valsartan (Entresto 24 Mg-26 Mg Tablet) 1 tab PO BID [facility] Last Admin: 09/24/19 10:06 Dose: 1 tab - Objective Vital Signs: Vital Signs Temperature 99.3 F 09/24/19 06:00 Pulse Rate 73 09/24/19 06:00 Respiratory Rate 20 09/24/19 06:00 Blood Pressure 91/53 L 09/24/19 06:00 O2 Sat by Pulse Oximetry (%) 97 09/23/19 21:00 Constitutional: Yes: No Distress, Calm Neck: Yes: Supple Cardiovascular: Yes: Regular Rate and Rhythm Respiratory: Yes: Regular, CTA Bilaterally Gastrointestinal: Yes: Normal Bowel Sounds, Soft Edema: No (Warm and well-perfused) Labs: CBC, BMP 09/24/19 06:55 09/24/19 06:55 - ....Imaging EKG: Report Reviewed (Tele: NSR) Problem List - Problems (1) AICD (automatic cardioverter/defibrillator) present Code(s): Z95.810 - PRESENCE OF AUTOMATIC (IMPLANTABLE) CARDIAC DEFIBRILLATOR (2) Congestive heart failure (CHF) Code(s): I50.9 - HEART FAILURE, UNSPECIFIED Qualifiers: Heart failure type: combined systolic and diastolic Heart failure chronicity: acute on chronic Qualified Code(s): I50.43 - Acute on chronic combined systolic (congestive) and diastolic (congestive) heart failure (3) Dilated cardiomyopathy Code(s): I42.0 - DILATED CARDIOMYOPATHY (4) Hyperlipidemia Code(s): E78.5 - HYPERLIPIDEMIA, UNSPECIFIED Qualifiers: Hyperlipidemia type: pure hypercholesterolemia Qualified Code(s): E78.00 - Pure hypercholesterolemia, unspecified; E78.0 - Pure hypercholesterolemia Assessment/Plan 09/22/2019 Echo: Moderate dilated LV with severely decreased LVEF 20%, Grade II diastolic dysfunction, normal RV size and fxn, pacemaker RV, mild MR, TR 09/23/[address]: Mucous plugs, ATX vs infiltrate RLL, trace pericardial effusion, coronary calcification 1. Shortness of breath c/w acute on chronic LV systolic failure resolving 2. Ischemic dilated cardiomyopathy s/p ICD 3. HTN 4. CVA 5. Hypercholesterolemia 6. DM 7. RLL PNA PLAN: 1. Resume oral diuretics Furosemide 20 qd, continue eplerenone 25 qd and monitor diuretic response, renal function and electrolytes 2. Continue Entresto 24/26 mg BID and monitor renal function, ASA 81 mg QD, Lipitor 20 qd, increase Carvedilol 6.25 mg BID as hemodynamics tolerates 3. Complete empiric abx course
--- NOTE | 2019-09-24 10:45 | PN ---
Teaching Attending Note Name of Resident: Linus Kimball ATTENDING PHYSICIAN STATEMENT I saw and evaluated the patient. I reviewed the resident's note and discussed the case with the resident. I agree with the resident's findings and plan as documented. Seen and examined; please see resident note for further historical information. I personally verified all butler historical information and exam findings. Personally interpreted all imaging and diagnostics and reviewed appropriate consults. I reviewed all labs and vital signs as per resident note and EMR as documented. I agree with the above assessment and plan unless supplemented by myself in the following. Shortness of breath is improved.Continues on Lasix moved to 20 mg oral daily, continue Entresto, Coreg, other cardiac meds. Discussed with cardiology service. 10 item review of systems completed and is negative aside from as discussed in the subjective data in my own/the resident documentation. VS, labs, imaging reviewed NAD, AAO, resting comfortably in bed. RRR s1/2 no mgr Normal muscle tone, moves all 5 extremities with normal apparent strength Neck is supple, trachea midline, no roque LN Lungs CTAB with sym expansion NT ND +BS no roque organomegaly CN2-12 wnl; no FND NC AT EOMI PERRLA Normal mood, appropriate behavior, euthymic affect No skin breakdown or rashes noted Telemetry reviewed Prior echocardiogram reviewed CT shows mild thickening of the interstitial septa bilaterally with mild thickening of the peripheral bronchi and suggestion of mucous plugs with atelectatic changes versus infiltrates in the right lower lobe with no pneumothorax or pleural effusion identified, cardiomegaly with trace cardial effusion noted with calcification of the coronary arteries displayed with multiple diverticuli with lymph nodes, the largest of which is being 2.1 to 1.6 cm. Simple left renal upper pole cyst measuring 1.8 cm is noted as well by the radiologist. Assessment and plan: Patient is a 54-year-old male presenting to the emergency into the hospital service with shortness of breath secondary to severe systolic CHF exacerbation with known severely reduced ejection fraction. Seen by Dr. Finch in cardiology who transitioned him back to his home Lasix dose today in addition to continuing the patient on his home dose of twice daily Entresto, aspirin, statin, and with carvedilol to be increased to 6.25 mg twice daily as hemodynamics tolerate. He is expected to have a low baseline blood pressure secondary to his underlying severe CHF and medications should not be held unless discussed with attending. Acute on chronic respiratory failure secondary to severe systolic CHF exacerbation Severe Systolic CHF NYHA II-III Class C at baseline s/p AICD Potential community-acquired pneumonia, on ceftriaxone and azithromycin Thrombocytopenia chronic, evidenced since 2018. Diagnostic HCV antibody is negative Coronary artery disease, obtaining old records follow-up with cardiology Recs. Continue home medications. Elevated CK; trended down to 800. Observing. Hx HTN Hx HLD Likely LU Obesity (BMI 33); tariff counsel prior to DC Full code
[2019-09-24] MEDS ORDERED: CARVEDILOL 6.25 MG TABLET (FP) PO SCH (11:00)
[2019-09-24] MEDS: CEFTRIAXONE 1 GM in DEXTROSE 5%-WATER - 50 ML IVPB SCH (14:34)
[2019-09-24 15:10] VITALS: BP 105/54; PULSE 69; TEMP 98.1
[2019-09-24] MEDS ORDERED: ALBUTEROL SO4 0.083% IH SOL 2.5 MG/3 ML VIAL.NEB. NEB PRN (15:15)
--- NOTE | 2019-09-24 15:22 | CON.PULM ---
Consult Consult Specialty:: PULM/CCM Referred by:: Hospitalist Reason for Consultation:: SOB - History of Present Illness Chief Complaint: SOB History of Present Illness: 54 M, CHF (previous echo noting EF 15-20%), pacemaker placement, HTN, remote CVA and previous significant smoking history having quit about 10 years ago. He does snore and have Excessive Daytime Sleepiness (EDS). There is a concern for Sleep Apnea. His 2 daughters apparently had Influenza A. Admitted via the ER due to increased dyspnea on exertion and orthopnea for the past few days. No travel history. No night sweats or hemoptysis. 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 Cardio/Vascular: Yes: CHF, HTN, MS, Other (ICD) Pulmonary: Yes: Other (pulmonary edema) - Past Surgical History Additional Surgical History: ICD implant - Alcohol/Substance Use Hx Alcohol Use: No - Smoking History Smoking history: Former smoker Have you smoked in the past 12 months: Yes Aproximately how many cigarettes per day: 3 - Social History ADL: Independent Home Medications - Allergies Allergies/Adverse Reactions: Allergies Allergy/AdvReac Type Severity Reaction Status Date / Time No Known Allergies Allergy Verified 09/21/19 15:01 - Home Medications Home Medications: Ambulatory Orders Aspirin 81 mg PO DAILY 09/21/19 Atorvastatin Calcium [Lipitor] 20 mg PO HS 09/21/19 Carvedilol [Coreg -] 1 tab PO BID 09/21/19 Citalopram Hydrobromide [Citalopram HBr] 20 mg PO DAILY 09/21/19 Donepezil HCl [Aricept -] 10 mg PO DAILY 09/21/19 Metformin HCl [Glucophage] 500 mg PO DAILY 09/21/19 Sacubitril/Valsartan [Entresto 24 mg-26 mg Tablet] 1 tab PO BID 09/21/19 Furosemide [Lasix] 20 mg PO DAILY 09/23/19 Azithromycin [Zithromax] 500 mg PO DAILY #2 tablet 09/24/19 Cephalexin [Keflex] 500 mg PO BID #4 capsule 09/24/19 Review of Systems - Review of Systems Constitutional: reports: Malaise. denies: Chills, Fever, Night Sweats Eyes: reports: No Symptoms HENT: reports: No Symptoms Neck: reports: No Symptoms Cardiovascular: reports: Edema, Shortness of Breath. denies: Chest Pain, Palpitations Respiratory: reports: Cough, Orthopnea, PND, Snoring, SOB, SOB on Exertion. denies: Hemoptysis, Wheezing Gastrointestinal: reports: No Symptoms Genitourinary: reports: No Symptoms Breasts: reports: No Symptoms Reported Musculoskeletal: reports: No Symptoms Integumentary: reports: No Symptoms Neurological: reports: No Symptoms Endocrine: reports: No Symptoms Hematology/Lymphatic: reports: No Symptoms Psychiatric: reports: No Symptoms Physical Exam Vital Sings: Vital Signs Temperature 98.1 F 09/24/19 14:00 Pulse Rate 69 09/24/19 14:00 Respiratory Rate 20 09/24/19 06:00 Blood Pressure 105/54 L 09/24/19 14:00 O2 Sat by Pulse Oximetry (%) 97 09/23/19 21:00 Constitutional: Yes: No Distress Eyes: Yes: Conjunctiva Clear, EOM Intact HENT: Yes: Atraumatic, Normocephalic Neck: Yes: Supple, Trachea Midline Cardiovascular: Yes: Regular Rate and Rhythm Respiratory: Yes: Cough, Diminished, Rhonchi, SOB, SOB on Exertion, Tachypnea. No: Accessory Muscle Use, Rales, Stridor, Wheezes ...Inspection: Yes: WNL ...Clubbing: No Gastrointestinal: Yes: Normal Bowel Sounds, Soft Renal/: Yes: WNL Breast(s): Yes: Nipple Inversion Extremities: Yes: WNL Edema: No Peripheral Pulses WNL: Yes Integumentary: Yes: WNL Neurological: Yes: WNL, Alert, Oriented ...Motor Strength: WNL Psychiatric: Yes: WNL, Alert, Oriented Labs: CBC, BMP 09/24/19 06:55 09/24/19 06:55 Imaging - Results Chest X-ray: Report Reviewed, Image Reviewed Cat Scan: Report Reviewed, Image Reviewed Problem List - Problems (1) Mediastinal lymphadenopathy Code(s): R59.0 - LOCALIZED ENLARGED LYMPH NODES (2) Pneumonia Code(s): J18.9 - PNEUMONIA, UNSPECIFIED ORGANISM Qualifiers: Pneumonia type: due to unspecified organism Laterality: right Lung location: unspecified part of lung Qualified Code(s): J18.9 - Pneumonia, unspecified organism (3) AICD (automatic cardioverter/defibrillator) present Code(s): Z95.810 - PRESENCE OF AUTOMATIC (IMPLANTABLE) CARDIAC DEFIBRILLATOR (4) Congestive heart failure (CHF) Code(s): I50.9 - HEART FAILURE, UNSPECIFIED Qualifiers: Heart failure type: combined systolic and diastolic Heart failure chronicity: acute on chronic Qualified Code(s): I50.43 - Acute on chronic combined systolic (congestive) and diastolic (congestive) heart failure (5) Dilated cardiomyopathy Code(s): I42.0 - DILATED CARDIOMYOPATHY Assessment/Plan IMP: Rule out Sleep Disordered Breathing PLAN: Agree with ABX Smoking abstinence counseled O2 as needed BD TX PRN No indication for systemic steroids Will need formal NPSG to rule out SDB (likely combined OSAS with 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 Dr Nolasco
--- NOTE | 2019-09-24 17:26 | DS ---
Physical Exam: SUBJECTIVE: Patient seen and examined Pt is in good state of health. Pt is off oxygen and ambulating well w/out SOB or O2 desaturation. Afebrile and asymptomatic. No overnight events. Denies f/c/n /v/d/chest pain. OBJECTIVE: Vital Signs Period Temp Pulse Resp BP Sys/Jones Pulse Ox Last 24 Hr 98.1 F-99.5 F 61-78 20-20 91-105/53-74 97-97 PHYSICAL EXAM GENERAL: The patient is awake, alert, and fully oriented, in no acute distress. On BiPaP EYES: PERRL, extraocular movements intact, sclera anicteric ENT: oropharynx clear without exudates, moist mucous membranes. NECK: Trachea midline, full range of motion, supple. LUNGS: Breath sounds equal, clear to auscultation bilaterally, mild- mod wheezing expiratory- chronic, no crackles HEART: Regular rate and rhythm, S1, S2 without murmur, rub or gallop. ABDOMEN: Soft, nontender, nondistended, normoactive bowel sounds, no guarding EXTREMITIES: 2+ pulses, warm, b/l LE edema. NEUROLOGICAL: Normal speech, gait not observed. SKIN: Warm, dry, normal turgor, no rashes or lesions noted LABS Laboratory Results - last 24 hr 09/23/19 09/24/19 09/24/19 12:50 06:55 06:55 WBC 5.1 RBC 4.31 Hgb 12.4 Hct 37.8 MCV 87.7 MCH 28.7 MCHC 32.7 RDW 14.3 Plt Count 120 L D MPV 9.0 Sodium 136 Potassium 4.3 Chloride 104 Carbon Dioxide 27 Anion Gap 4 L BUN 20.9 H Creatinine 0.9 Est GFR (CKD-EPI)AfAm 110.27 Est GFR (CKD-EPI)NonAf 95.14 Random Glucose 93 Calcium 8.4 L Magnesium 2.1 Total Bilirubin 0.6 AST 56 H ALT 80 H Alkaline Phosphatase 60 Creatine Kinase 321 H Creatine Kinase Index No Result Required. CK-MB (CK-2) < 1.0 Total Protein 6.6 Albumin 3.0 L Hep C Ab Diagnostic 0.5 Current Medications Albuterol Sulfate (Ventolin 0.083% Nebulizer Soln -) 1 amp NEB Q1H PRN PRN Reason: SHORT OF BREATH/WHEEZING Aspirin (Asa -) 81 mg PO DAILY [facility] Last Admin: 09/24/19 10:05 Dose: 81 mg Atorvastatin Calcium (Lipitor -) 20 mg PO HS [facility] Last Admin: 09/23/19 22:13 Dose: 20 mg Carvedilol (Coreg -) 6.25 mg PO BID [facility] Citalopram Hydrobromide (Celexa -) 20 mg PO DAILY [facility] Last Admin: 09/24/19 10:05 Dose: 20 mg Donepezil HCl (Aricept -) 10 mg PO DAILY [facility] Last Admin: 09/24/19 10:05 Dose: 10 mg Enoxaparin Sodium (Lovenox -) 40 mg SQ DAILY [facility] Last Admin: 09/24/19 10:06 Dose: 40 mg Eplerenone (Eplerenone) 25 mg PO DAILY [facility] Last Admin: 09/24/19 10:06 Dose: 25 mg Furosemide (Lasix -) 20 mg PO DAILY [facility] Sacubitril/Valsartan (Entresto 24 Mg-26 Mg Tablet) 1 tab PO BID [facility] Last Admin: 09/24/19 10:06 Dose: 1 tab Home Medications Medication Instructions Recorded Aspirin 81 mg PO DAILY 09/21/19 Atorvastatin Calcium [Lipitor] 20 mg PO HS 09/21/19 Carvedilol [Coreg -] 1 tab PO BID 09/21/19 Citalopram Hydrobromide 20 mg PO DAILY 09/21/19 [Citalopram HBr] Donepezil HCl [Aricept -] 10 mg PO DAILY 09/21/19 Metformin HCl [Glucophage] 500 mg PO DAILY 09/21/19 Sacubitril/Valsartan [Entresto 24 1 tab PO BID 09/21/19 mg-26 mg Tablet] Furosemide [Lasix] 20 mg PO DAILY 09/23/19 Azithromycin [Zithromax] 500 mg PO DAILY #2 tablet 09/24/19 Cephalexin [Keflex] 500 mg PO BID #4 capsule 09/24/19 Microbiology 09/21/19 22:20 Urine - Urine Clean Catch Legionella Antigen - Final 09/21/19 22:20 Urine - Urine Clean Catch Streptococcus pneumoniae Antigen ( M - Final HOSPITAL COURSE: Date of Admission:09/21/19 54 y/o M, pmh of CHF rEF 15-20% on previous echo, LV failure s/p ICD (07/17/18) , HTN, remote CVA w/ poor gait and memory deficit presented with [id number], nonproductive cough, dyspnea, orthopnea, b/l leg swelling, admitted for CHF decompensation 2/2 to CAP PNA w/ BP 88/58. Pt was started on ceftriaxone, azithromycin, Lasix 20mg IV, Duoneb, Solumedrol and placed on BiPaP which improved his symptoms. Pt has a extensive hx of cardiac disease, including CHF rEF 20%, likely 2/2 to DCM from ischemic vs nonischemic cardiomyopathy as per chart. He is NYHA II-III Class C at baseline. Upon admission, pt was cont on azithro and rocephin and given lasix 40mg daily. His symptoms began to improve and cardio was consulted. Dr. Coy had done a cardiac cath in the past- LAD middle 60-70% stenosis and 100% stenosis of the distal portion w/ right to left collaterals, 70% stenosis of circumflex, 100% stenosis of the ramus with left to left collaterals, RCA- proximal 20% stenosis and mid 50% stenosis, PDA 70% stenosis, RPL 100% with left to right collaterals. After discussion with Dr. Coy , pt was stable to be discharged home on eplerenone, lasix, azithromycin and keflex. 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 Mcclellan. Pt was discharged. CURB-65 - 1, requiring BiPAP and poor cardiac status CXR with mild atelectasis in R lung base and superimposed infiltrates Previous echo noting severely dilated LV, reduced LV systolic function, EF 15-20 %, severe hypokinesis of the L ventricle EKG shows sinus bradycardia, 1o AV block, anterolateral infarct of undetermined age and possible inferior ischemia - mostly unchanged from prior EKG but for the bradycardia. Chest CT: mild thickening of interstitial septa, b/l thickening mildly of the peripheral bronchi + suggestion of mucus plugs, Atelectatic changes vs infiltrates of RLL, trace pericardial effusion, multiple diverticula LN w/ largest measuring 2.1x1.6cm, left upper pole simple cyst of kidney at 1.8 cm. Date of Discharge: 09/24/19 Minutes to complete discharge: 40 Discharge Summary Problems reviewed: Yes Reason For Visit: CHF PNEUMONIA Current Active Problems Mediastinal lymphadenopathy (Acute) Pneumonia (Acute) AICD (automatic cardioverter/defibrillator) present (Chronic) Congestive heart failure (CHF) (Chronic) Condition: Improved - Instructions Diet, Activity, Other Instructions: You were admitted to the hospital for difficulty breathing While in the hospital, we evaluated you with lab work, blood work, imaging including X rays and CAT scans of your chest. We found that your symptoms were caused by an exacerbation of your congestive heart failure along with an infection in your lung called Pneumonia. We treated you with medications and your symptoms improved significantly. We also found that you will need to undergo a sleep study outpatient To complete the treatment of your Pneumonia, please take the following medications; Azithromycin 500mg for two more days, once a day, please take with food Keflex 500mg for two more days, twice a day at 8 am and 8 pm We made some adjustments to your medications, Please START taking Eplerenone 25mg daily by mouth Continue taking Lasix 20mg daily Continue taking Coreg 6.25 mg twice a day Continue taking Entresto twice daily Continue taking Liptor 20 mg daily Continue taking Aspirin 81 mg daily Please take all your medications as prescribed Please follow up with the Mask Former, Dr. Coy, within 1 week Please follow up with the Sanitation Officer/Sleep specialist Dr. Mcclellan for a sleep study to be done. Please follow up with your primary care physician within 1 week Return to the emergency room, if you experience worsening of your symtpoms, shortness of breath, chest pain, abdominal pain or any worsening of your condition. [place] Fue ingresado en el hospital por dificultad para respirar Mientras estaba en el hospital, lo evaluamos con anlisis de laboratorio, anlisis de aj, imgenes que incluyen evelina X y tomografas computarizadas de ag pecho. Descubrimos que vinayak sntomas fueron causados ??por bubba exacerbacin de ag insuficiencia cardaca congestiva junto con bubba infeccin en los pulmones llamada neumona. Lo tratamos con medicamentos y vinayak sntomas mejoraron significativamente. Tambin descubrimos que deber someterse a un paciente ambulatorio de estudio del sueo. Para completar el tratamiento de ag neumona, tome los siguientes medicamentos; Azitromicina 500mg por dos padilla ms, bubba vez al da, por favor tome con comida Keflex 500mg por dos padilla ms, dos veces al da a las 8 a.m. y 8 p.m. Hicimos algunos ajustes a vinayak medicamentos, COMIENCE a aris Eplerenona 25mg diariamente por va oral Contine tomando Lasix 20mg diariamente Contine tomando Coreg 6.25 mg dos veces al da. Contine tomando Entresto dos veces al da. Contine tomando Liptor 20 mg diariamente Continuar tomando aspirina 81 mg al da [place] todos vinayak medicamentos segn lo recetado. Stephanie un seguimiento con el cardilogo, Dr. Coy, dentro de 1 semana Stephanie un seguimiento con el neumlogo / especialista en sueo Dr. Mcclellan para realizar un estudio del sueo. Stephanie un seguimiento con ag mdico de atencin primaria dentro de 1 semana Regrese a la nita de emergencias, si experimenta un empeoramiento de vinayak sntomas, dificultad para respirar, dolor en el pecho, dolor abdominal o cualquier empeoramiento de ag condicin. Referrals: Bebeto Leon MD [Primary Care Provider] - 1 Week Jhonny Nolasco MD [Staff Physician] - 1 Week (Sleep study needed) Mj Finch MD [Staff Physician] - 1 Week Disposition: VNS/HOME HEALTH CARE - Home Medications Comprehensive Discharge Medication List: Ambulatory Orders Aspirin 81 mg PO DAILY 09/21/19 Atorvastatin Calcium [Lipitor] 20 mg PO HS 09/21/19 Carvedilol [Coreg -] 1 tab PO BID 09/21/19 Citalopram Hydrobromide [Citalopram HBr] 20 mg PO DAILY 09/21/19 Donepezil HCl [Aricept -] 10 mg PO DAILY 09/21/19 Metformin HCl [Glucophage] 500 mg PO DAILY 09/21/19 Sacubitril/Valsartan [Entresto 24 mg-26 mg Tablet] 1 tab PO BID 09/21/19 Furosemide [Lasix] 20 mg PO DAILY 09/23/19 Azithromycin [Zithromax] 500 mg PO DAILY #2 tablet 09/24/19 Cephalexin [Keflex] 500 mg PO BID #4 capsule 09/24/19 This patient is new to me today: Yes Date on this admission: 09/24/19 Emergency Visit: Yes ED Registration Date: 09/21/19 Care time: The patient presented to the Emergency Department on the above date and was hospitalized for further evaluation of their emergent condition. Critical Care patient: No - Discharge Referral Referred to [facility] Med P.C.: No ATTENDING PHYSICIAN STATEMENT I saw and evaluated the patient. I reviewed the resident's note and discussed the case with the resident. I agree with the resident's findings and plan as documented. SUBJECTIVE: OBJECTIVE: ASSESSMENT AND PLAN:
[2019-09-25] MEDS ORDERED: FUROSEMIDE 20 MG TABLET (FP) PO SCH (10:00)
== END 2019-09-24 20:26 | disposition home health service (06) | DRG 194 ==
LOC: JER 14:44 → JERBED 17:23 → J4W 09-22 15:21
PROVIDERS: ADMIT Internal Medicine; ATTEND Internal Medicine
DX: I11.0 Hypertensive heart disease with heart failure (principal); E66.9 Obesity, unspecified; Z68.33 Body mass index [BMI] 33.0-33.9, adult; J98.11 Atelectasis; E46 Unspecified protein-calorie malnutrition; J18.9 Pneumonia, unspecified organism; E88.09 Other disorders of plasma-protein metabolism, not elsewhere classified; E87.1 Hypo-osmolality and hyponatremia; E87.5 Hyperkalemia; I25.10 Atherosclerotic heart disease of native coronary artery without angina pectoris; I44.0 Atrioventricular block, first degree; I25.5 Ischemic cardiomyopathy; I25.2 Old myocardial infarction; G47.33 Obstructive sleep apnea (adult) (pediatric); R00.1 Bradycardia, unspecified; E78.5 Hyperlipidemia, unspecified; J96.01 Acute respiratory failure with hypoxia; I50.43 Acute on chronic combined systolic (congestive) and diastolic (congestive) heart failure; N28.1 Cyst of kidney, acquired; R26.9 Unspecified abnormalities of gait and mobility; D69.6 Thrombocytopenia, unspecified; R59.0 Localized enlarged lymph nodes; Z86.73 Personal history of transient ischemic attack (TIA), and cerebral infarction without residual deficits; Z95.810 Presence of automatic (implantable) cardiac defibrillator; Z95.0 Presence of cardiac pacemaker
CPT/HCPCS: 36415; 71045-TC-FY; 71250-TC; 80053; 81003; 82550; 82553; 82962; 83036; 83735; 83880; 84100; 84484; 85025; 85027; 86803; 87804; 87899; 90732; 93005; 93010; 93306-TC; 94660; 97116-GP; 97161-GP; 99285-25; G0008; G0009; Q2036

== ENCOUNTER 2020-08-17 15:31 | Inpatient (IN) | payer OTHER ==
[2020-08-17] MEDS ORDERED: FUROSEMIDE 40 MG/4 ML INJECTABLE VIAL IVPUSH ONE (16:30)
[2020-08-17] MEDS ORDERED: FUROSEMIDE 40 MG/4 ML INJECTABLE VIAL ONE (16:39)
[2020-08-17 16:58] LABS: BASO % 0.1 % (0-2.0); EOS % 1.2 % (0-4.5); HEMATOCRIT 34.3 % (35.4-49); HEMOGLOBIN 11.1 GM/dL (11.7-16.9); LYMPH % 16.8 % (8-40); MCH 29.2 pg (25.7-33.7); MCHC 32.2 g/dl (32.0-35.9); MEAN CELL VOLUME 90.5 fl (80-96); MEAN PLT VOLUME 8.9 fl (7.5-11.1); MONO % 6.5 % (3.8-10.2); NEUT % 75.4 % (42.8-82.8); PLATELET COUNT 226 K/MM3 (134-434); RBC 3.79 M/mm3 (4.00-5.60); RDW 15.1 % (11.9-15.9); WHITE BLOOD COUNT 8.5 K/mm3 (4.0-10.0)
[2020-08-17 17:11] LABS: INR 1.44 (0.83-1.09); PROTHROMBIN TIME (PATIENT) 17.2 SEC (9.7-13.0)
[2020-08-17 17:13] LABS: ACTIVATED PTT 27.3 SECONDS (25.2-36.5)
[2020-08-17 17:14] LABS: POTASSIUM 4.1 mmol/L (3.5-5.1)
[2020-08-17 17:16] LABS: CALCIUM 8.3 mg/dL (8.5-10.1)
[2020-08-17 17:17] LABS: ALBUMIN 2.5 g/dl (3.4-5.0); BLOOD UREA NITROGEN 19.3 mg/dL (7-18); MAGNESIUM 2.1 mg/dL (1.8-2.4)
[2020-08-17 17:22] LABS: TOT PROT 6.9 g/dl (6.4-8.2)
[2020-08-17 17:25] LABS: N-TERMINAL BNP 3212.1 pg/ml (5-125)
[2020-08-18 07:53] LABS: POTASSIUM 3.7 mmol/L (3.5-5.1)
[2020-08-18 07:56] LABS: ALBUMIN 2.4 g/dl (3.4-5.0); BLOOD UREA NITROGEN 17.2 mg/dL (7-18); CALCIUM 8.1 mg/dL (8.5-10.1); MAGNESIUM 2.2 mg/dL (1.8-2.4)
[2020-08-18 07:58] LABS: BASO % 0.7 % (0-2.0); HEMATOCRIT 33.8 % (35.4-49); HEMOGLOBIN 10.8 GM/dL (11.7-16.9); LYMPH % 15.3 % (8-40); MCH 29.4 pg (25.7-33.7); MCHC 32.1 g/dl (32.0-35.9); MEAN CELL VOLUME 91.8 fl (80-96); MONO % 6.9 % (3.8-10.2); NEUT % 75.1 % (42.8-82.8); PLATELET COUNT 213 K/MM3 (134-434); RBC 3.68 M/mm3 (4.00-5.60); RDW 15.2 % (11.9-15.9); WHITE BLOOD COUNT 7.3 K/mm3 (4.0-10.0)
[2020-08-18 07:59] LABS: CREATININE 0.8 mg/dL (0.55-1.3)
[2020-08-18 08:00] LABS: CHOLESTEROL 98 mg/dL (50-200); PHOSPHOROUS 2.9 mg/dL (2.5-4.9); TRIGLYCERIDES 78 mg/dL (0-150)
[2020-08-18 08:01] LABS: TOT PROT 6.8 g/dl (6.4-8.2)
[2020-08-18 08:02] LABS: HDL CHOLESTEROL 22 mg/dL (40-60); LDL CHOLESTEROL (ONLY SJRH) 69 mg/dL (5-100)
[2020-08-18] MEDS ORDERED: ASPIRIN 81 MG CHEWABLE TABLETS ONE (08:49)
[2020-08-18] MEDS ORDERED: FUROSEMIDE 40 MG/4 ML INJECTABLE VIAL ONE (08:49)
[2020-08-18] MEDS ORDERED: ENOXAPARIN NA (PORCINE) 40 MG/0.4 ML DISP.SYRIN SQ ONE (08:49)
[2020-08-18] MEDS: ASPIRIN 81 MG CHEWABLE TABLETS PO SCH (09:17)
[2020-08-18] MEDS: SACUBITRIL/VALSARTAN 24 MG-26 MG TABLET PO SCH ×2 (09:17→21:22)
[2020-08-18] MEDS: CARVEDILOL 6.25 MG TABLET (FP) PO SCH ×2 (09:17→21:22)
[2020-08-18] MEDS: FUROSEMIDE 40 MG/4 ML INJECTABLE VIAL IVPUSH SCH ×2 (09:17→21:22)
[2020-08-18] MEDS ORDERED: FUROSEMIDE 40 MG/4 ML INJECTABLE VIAL IVPUSH SCH (10:00)
[2020-08-18] MEDS ORDERED: CITALOPRAM HYDROBROMIDE 20 MG TABLET PO SCH (10:00)
[2020-08-18] MEDS ORDERED: ENOXAPARIN NA (PORCINE) 40 MG/0.4 ML DISP.SYRIN SQ SCH (10:00)
[2020-08-18 18:57] VITALS: BMI 30.7
[2020-08-18] MEDS ORDERED: ENOXAPARIN NA (PORCINE) 80 MG/0.8 ML DISP.SYRIN SQ SCH (22:00)
[2020-08-18] MEDS ORDERED: DONEPEZIL HCL 10 MG TABLET (FP) PO SCH (22:00)
[2020-08-19 07:24] LABS: BASO % 0.4 % (0-2.0); EOS % 1.7 % (0-4.5); HEMATOCRIT 34.5 % (35.4-49); HEMOGLOBIN 11.3 GM/dL (11.7-16.9); LYMPH % 19.1 % (8-40); MCH 29.5 pg (25.7-33.7); MCHC 32.7 g/dl (32.0-35.9); MEAN CELL VOLUME 90.1 fl (80-96); MEAN PLT VOLUME 8.6 fl (7.5-11.1); MONO % 8.5 % (3.8-10.2); NEUT % 70.3 % (42.8-82.8); PLATELET COUNT 202 K/MM3 (134-434); RBC 3.83 M/mm3 (4.00-5.60); RDW 14.9 % (11.9-15.9); WHITE BLOOD COUNT 5.7 K/mm3 (4.0-10.0)
[2020-08-19 07:34] LABS: POTASSIUM 3.8 mmol/L (3.5-5.1)
[2020-08-19 07:44] LABS: BILIRUBIN,TOTAL 0.9 mg/dL (0.2-1); CREATININE 0.9 mg/dL (0.55-1.3); TOT PROT 6.7 g/dl (6.4-8.2)
[2020-08-19 07:46] LABS: PHOSPHOROUS 4.3 mg/dL (2.5-4.9)
[2020-08-19 07:47] LABS: ALBUMIN 2.4 g/dl (3.4-5.0)
[2020-08-19 07:49] LABS: CALCIUM 8.4 mg/dL (8.5-10.1)
[2020-08-19 09:54] LABS: ERYTHROCYTE SEDIMENTATION RATE 46 mm/hr (0-20)
[2020-08-19] MEDS: FUROSEMIDE 40 MG/4 ML INJECTABLE VIAL IVPUSH SCH ×2 (10:18→22:14)
[2020-08-19] MEDS: SACUBITRIL/VALSARTAN 24 MG-26 MG TABLET PO SCH ×2 (10:18→22:14)
[2020-08-19] MEDS: ASPIRIN 81 MG CHEWABLE TABLETS PO SCH (10:18)
[2020-08-19] MEDS: CARVEDILOL 6.25 MG TABLET (FP) PO SCH ×2 (10:18→22:14)
[2020-08-19] MEDS: ENOXAPARIN NA (PORCINE) 40 MG/0.4 ML DISP.SYRIN SQ SCH (10:18)
[2020-08-19] MEDS ORDERED: FLU VACCINE (FLULAVAL) PF 60 MCG/0.5 ML SYRINGE 2020-2021 IM ONE (13:00)
[2020-08-20 07:29] LABS: BASO % 0.7 % (0-2.0); EOS % 1.2 % (0-4.5); HEMATOCRIT 33.4 % (35.4-49); HEMOGLOBIN 10.8 GM/dL (11.7-16.9); LYMPH % 20.7 % (8-40); MCH 29.1 pg (25.7-33.7); MCHC 32.4 g/dl (32.0-35.9); MEAN CELL VOLUME 89.8 fl (80-96); MEAN PLT VOLUME 9.1 fl (7.5-11.1); MONO % 7.7 % (3.8-10.2); NEUT % 69.7 % (42.8-82.8); PLATELET COUNT 225 K/MM3 (134-434); RBC 3.72 M/mm3 (4.00-5.60); RDW 14.9 % (11.9-15.9); WHITE BLOOD COUNT 6.3 K/mm3 (4.0-10.0)
[2020-08-20 07:52] LABS: POTASSIUM 3.7 mmol/L (3.5-5.1)
[2020-08-20 08:01] LABS: ALBUMIN 2.5 g/dl (3.4-5.0); BLOOD UREA NITROGEN 21.3 mg/dL (7-18); CALCIUM 8.4 mg/dL (8.5-10.1); MAGNESIUM 1.8 mg/dL (1.8-2.4)
[2020-08-20 08:04] LABS: CREATININE 0.9 mg/dL (0.55-1.3)
[2020-08-20 08:05] LABS: PHOSPHOROUS 4.5 mg/dL (2.5-4.9)
[2020-08-20 08:06] LABS: BILIRUBIN,TOTAL 0.5 mg/dL (0.2-1); TOT PROT 6.7 g/dl (6.4-8.2)
[2020-08-20] MEDS ORDERED: FUROSEMIDE 20 MG TABLET (FP) PO SCH (10:00)
[2020-08-20] MEDS: ENOXAPARIN NA (PORCINE) 40 MG/0.4 ML DISP.SYRIN SQ SCH (10:13)
[2020-08-20] MEDS: CARVEDILOL 6.25 MG TABLET (FP) PO SCH (10:14)
[2020-08-20] MEDS: ASPIRIN 81 MG CHEWABLE TABLETS PO SCH (10:14)
[2020-08-20] MEDS: SACUBITRIL/VALSARTAN 24 MG-26 MG TABLET PO SCH (10:14)
[2020-08-20 11:10] VITALS: BP 103/42; PULSE 78; TEMP 98.2
== END 2020-08-20 14:24 | disposition home or self-care (01) | DRG 194 ==
LOC: JER 15:31 → JERBED 18:13 → J4S 08-18 19:16
PROVIDERS: ADMIT Internal Medicine; ATTEND Student in an Organized Health Care Education/Training Program
DX: I11.0 Hypertensive heart disease with heart failure (principal); I50.23 Acute on chronic systolic (congestive) heart failure; G92 Toxic encephalopathy; I44.0 Atrioventricular block, first degree; R74.01 Elevation of levels of liver transaminase levels; Z95.810 Presence of automatic (implantable) cardiac defibrillator; I69.398 Other sequelae of cerebral infarction; R26.89 Other abnormalities of gait and mobility; R73.03 Prediabetes; I25.5 Ischemic cardiomyopathy; E78.00 Pure hypercholesterolemia, unspecified; F01.50 Vascular dementia, unspecified severity, without behavioral disturbance, psychotic disturbance, mood disturbance, and anxiety
CPT/HCPCS: 36415; 71045-TC-FY; 71275-TC; 76705-TC; 80053; 80061; 82550; 82728; 82962; 83036; 83615; 83721; 83735; 83880; 84100; 84443; 84484; 85025; 85379; 85610; 85651; 85730; 86140; 86769; 93005; 93010; 93306-TC; 99285-25; C9803; G0008; Q2036; Q9967; U0003

== ENCOUNTER 2020-08-21 15:26 | Inpatient (IN) | payer OTHER ==
[2020-08-21] MEDS ORDERED: VANCOMYCIN 1 GM in D5W (PRE-DOCKED) 1,000 MG/250 ML IVPB ONE (16:41)
[2020-08-21] MEDS ORDERED: PIPERACILLIN/TAZOB 4.5 GM 4.5 GM in DEXTROSE 5%-WATER 100 ML IVPB ONE (16:42)
[2020-08-21] MEDS ORDERED: AZITHROMYCIN IVPB 500 MG in DEXTROSE 5%-WATER - 250 ML IVPB ONE (16:43)
[2020-08-21] MEDS ORDERED: VANCOMYCIN 1 GRAM (PRE-DOCKED) 1,000 MG/250 ML BAG IVPB ONE (17:16)
[2020-08-21] MEDS ORDERED: PIPERACILLIN/TAZOB 3.375 GM 3.375 GM/50 ML BAG IVPB ONE (17:17)
[2020-08-21] MEDS ORDERED: AZITHROMYCIN IVPB 500 MG/250 ML BAG IVPB ONE (17:17)
[2020-08-21] MEDS ORDERED: FUROSEMIDE 40 MG/4 ML INJECTABLE VIAL IVPUSH ONE (18:00)
[2020-08-21 18:03] LABS: ARTERIAL BLD GAS O2 SATURATION 94.3 mmHg (95-98); ARTERIAL BLOOD GAS BASE EXCESS 1.1 mmol/L (-2-2); ARTERIAL BLOOD GAS PO2 68.6 mmHg (80-100); ARTERIAL BLOOD GAS pH 7.434 (7.350-7.450)
[2020-08-21 18:04] LABS: ALLENS TEST POSITIVE
[2020-08-21 18:09] LABS: BASO % 0.6 % (0-2.0); EOS % 1.2 % (0-4.5); HEMATOCRIT 33.4 % (35.4-49); HEMOGLOBIN 10.7 GM/dL (11.7-16.9); LYMPH % 23.6 % (8-40); MCH 29.2 pg (25.7-33.7); MEAN CELL VOLUME 91.1 fl (80-96); MEAN PLT VOLUME 9.2 fl (7.5-11.1); MONO % 9.3 % (3.8-10.2); NEUT % 65.3 % (42.8-82.8); PLATELET COUNT 243 K/MM3 (134-434); RBC 3.66 M/mm3 (4.00-5.60); RDW 15.4 % (11.9-15.9); WHITE BLOOD COUNT 5.3 K/mm3 (4.0-10.0)
[2020-08-21 18:27] LABS: INR 1.25 (0.83-1.09)
[2020-08-21 18:30] LABS: ACTIVATED PTT 27.8 SECONDS (25.2-36.5)
[2020-08-21 18:36] LABS: POTASSIUM 4.4 mmol/L (3.5-5.1)
[2020-08-21 18:38] LABS: MAGNESIUM 2.4 mg/dL (1.8-2.4)
[2020-08-21 18:38] LABS: ALBUMIN 2.7 g/dl (3.4-5.0); BLOOD UREA NITROGEN 16.8 mg/dL (7-18); CALCIUM 8.6 mg/dL (8.5-10.1)
[2020-08-21 18:42] LABS: CREATININE 0.9 mg/dL (0.55-1.3)
[2020-08-21 18:43] LABS: BILIRUBIN,TOTAL 0.6 mg/dL (0.2-1); TOT PROT 7.4 g/dl (6.4-8.2)
[2020-08-21] MEDS ORDERED: FUROSEMIDE 40 MG/4 ML INJECTABLE VIAL ONE (18:54)
[2020-08-21 19:53] LABS: N-TERMINAL BNP 2399.9 pg/ml (5-125)
[2020-08-21 20:54] LABS: PH,URINE 6.5 (5.0-8.0); URINE APPEARANCE CLEAR; URINE BILIRUBIN NEGATIVE (NEGATIVE); URINE COLOR YELLOW; URINE GLUCOSE (UA) 3+ (NEGATIVE); URINE KETONE NEGATIVE (NEGATIVE); URINE LEUK ESTERASE NEGATIVE (NEGATIVE); URINE NITRITE NEGATIVE (NEGATIVE); URINE PROTEIN NEGATIVE (NEGATIVE); URINE UROBILINOGEN 0.2 mg/dL (0.2-1.0)
[2020-08-21] MEDS: ENOXAPARIN NA (PORCINE) 40 MG/0.4 ML DISP.SYRIN SQ SCH (22:01)
[2020-08-21] MEDS: INSULIN SLIDING SCALE (NOVOLOG) 1 VIAL SQ SCH (22:01)
[2020-08-22 02:07] LABS: PHOSPHOROUS 3.1 mg/dL (2.5-4.9)
[2020-08-22] MEDS: INSULIN SLIDING SCALE (NOVOLOG) 1 VIAL SQ SCH ×4 (07:00→22:47)
[2020-08-22] MEDS ORDERED: PATIENT'S OWN MEDICATION (NON-FORMULARY) (Farxiga 10 MG) PO SCH (10:00)
[2020-08-22] MEDS ORDERED: ASCORBIC ACID 500 MG TABLET (FP) ONE ×2 (10:39→22:21)
[2020-08-22] MEDS ORDERED: DEXAMETHASONE 4 MG TABLET (FP) ONE (10:40)
[2020-08-22] MEDS ORDERED: FAMOTIDINE 20 MG TABLET ONE (10:40)
[2020-08-22] MEDS ORDERED: ASPIRIN 81 MG CHEWABLE TABLETS ONE (10:40)
[2020-08-22] MEDS ORDERED: CARVEDILOL 12.5 MG TABLET (FP) ONE (10:40)
[2020-08-22] MEDS ORDERED: CHOLECALCIFEROL (VIT D3) 1,000 UNIT (25 MCG) TABLET ONE (10:41)
[2020-08-22] MEDS ORDERED: DOXYCYCLINE HYCLATE 100 MG CAPSULE PO ONE (10:41)
[2020-08-22] MEDS ORDERED: CEFTRIAXONE 1 GM/50 ML BAG ONE (10:42)
[2020-08-22] MEDS: FAMOTIDINE 20 MG TABLET PO SCH ×2 (12:30→22:47)
[2020-08-22] MEDS: CHOLECALCIFEROL (VIT D3) 1,000 UNIT (25 MCG) TABLET PO SCH (12:30)
[2020-08-22] MEDS: ASCORBIC ACID 500 MG TABLET (FP) PO SCH ×2 (12:30→22:47)
[2020-08-22] MEDS: DEXAMETHASONE 4 MG TABLET (FP) PO SCH (12:30)
[2020-08-22] MEDS: ASPIRIN 81 MG CHEWABLE TABLETS PO SCH (12:30)
[2020-08-22] MEDS: CEFTRIAXONE 1 GM in DEXTROSE 5%-WATER - 50 ML IVPB SCH (12:30)
[2020-08-22] MEDS: DOXYCYCLINE HYCLATE 100 MG CAPSULE PO SCH (12:30)
[2020-08-22] MEDS: CARVEDILOL 6.25 MG TABLET (FP) PO SCH ×2 (12:54→22:47)
[2020-08-22] MEDS: ENOXAPARIN NA (PORCINE) 40 MG/0.4 ML DISP.SYRIN SQ SCH (12:55)
[2020-08-22] MEDS: SACUBITRIL/VALSARTAN 24 MG-26 MG TABLET PO SCH (12:55)
[2020-08-22] MEDS ORDERED: ATORVASTATIN CA 20 MG TABLET (FP) ONE (22:21)
[2020-08-22] MEDS ORDERED: ZINC SULFATE 220 MG CAPSULE (FP) ONE (22:22)
[2020-08-22] MEDS ORDERED: CARVEDILOL 3.125 MG TABLET (FP) ONE (22:22)
[2020-08-22] MEDS: ZINC SULFATE 220 MG CAPSULE (FP) PO SCH (22:47)
[2020-08-22] MEDS: ATORVASTATIN CA 20 MG TABLET (FP) PO SCH (22:47)
[2020-08-23] MEDS: SACUBITRIL/VALSARTAN 24 MG-26 MG TABLET PO SCH ×3 (01:53→22:58)
[2020-08-23 04:50] VITALS: BMI 29.4
[2020-08-23] MEDS: INSULIN SLIDING SCALE (NOVOLOG) 1 VIAL SQ SCH ×4 (06:02→22:59)
[2020-08-23] MEDS ORDERED: cefTRIAXone SODIUM 1 GM VIAL ONE (10:01)
[2020-08-23] MEDS ORDERED: DEXTROSE 5%-WATER - 50 ML IVPB ONE (10:02)
[2020-08-23] MEDS: DEXAMETHASONE 4 MG TABLET (FP) PO SCH (11:34)
[2020-08-23] MEDS: FAMOTIDINE 20 MG TABLET PO SCH ×2 (11:34→22:58)
[2020-08-23] MEDS: CARVEDILOL 6.25 MG TABLET (FP) PO SCH ×2 (11:34→22:58)
[2020-08-23] MEDS: ASCORBIC ACID 500 MG TABLET (FP) PO SCH ×2 (11:34→22:58)
[2020-08-23] MEDS: ASPIRIN 81 MG CHEWABLE TABLETS PO SCH (11:34)
[2020-08-23] MEDS: CHOLECALCIFEROL (VIT D3) 1,000 UNIT (25 MCG) TABLET PO SCH (11:34)
[2020-08-23] MEDS: DOXYCYCLINE HYCLATE 100 MG CAPSULE PO SCH (11:34)
[2020-08-23] MEDS: ENOXAPARIN NA (PORCINE) 40 MG/0.4 ML DISP.SYRIN SQ SCH (11:35)
[2020-08-23] MEDS: CEFTRIAXONE 1 GM in DEXTROSE 5%-WATER - 50 ML IVPB SCH (11:36)
[2020-08-23] MEDS ORDERED: INSULIN (NOVOLOG) ASPART 100 UNITS/ML 10ML VIAL ONE (22:33)
[2020-08-23] MEDS: ZINC SULFATE 220 MG CAPSULE (FP) PO SCH (22:58)
[2020-08-23] MEDS: ATORVASTATIN CA 20 MG TABLET (FP) PO SCH (22:58)
[2020-08-24] MEDS ORDERED: traMADol HCL 50 MG TABLET PO ONE ×2 (02:16→02:42)
[2020-08-24] MEDS: INSULIN SLIDING SCALE (NOVOLOG) 1 VIAL SQ SCH ×4 (06:06→23:50)
[2020-08-24] MEDS ORDERED: INSULIN (NOVOLOG) ASPART 100 UNITS/ML 10ML VIAL ONE (06:11)
[2020-08-24] MEDS: ASPIRIN 81 MG CHEWABLE TABLETS PO SCH (10:04)
[2020-08-24] MEDS: CARVEDILOL 6.25 MG TABLET (FP) PO SCH ×2 (10:04→23:33)
[2020-08-24] MEDS: FAMOTIDINE 20 MG TABLET PO SCH ×2 (10:04→23:33)
[2020-08-24] MEDS: CHOLECALCIFEROL (VIT D3) 1,000 UNIT (25 MCG) TABLET PO SCH (10:04)
[2020-08-24] MEDS: ENOXAPARIN NA (PORCINE) 40 MG/0.4 ML DISP.SYRIN SQ SCH (10:04)
[2020-08-24] MEDS: ASCORBIC ACID 500 MG TABLET (FP) PO SCH ×2 (10:04→23:33)
[2020-08-24] MEDS: SACUBITRIL/VALSARTAN 24 MG-26 MG TABLET PO SCH ×2 (10:05→23:34)
[2020-08-24] MEDS: FUROSEMIDE 20 MG TABLET (FP) PO SCH (14:39)
[2020-08-24] MEDS ORDERED: PT OWN MED DRAWER 7, Y5N ONE (23:31)
[2020-08-24] MEDS: ATORVASTATIN CA 20 MG TABLET (FP) PO SCH (23:33)
[2020-08-24] MEDS: ZINC SULFATE 220 MG CAPSULE (FP) PO SCH (23:33)
[2020-08-25] MEDS: FUROSEMIDE 20 MG TABLET (FP) PO SCH ×2 (05:20→13:17)
[2020-08-25] MEDS: INSULIN SLIDING SCALE (NOVOLOG) 1 VIAL SQ SCH ×2 (07:00→11:34)
[2020-08-25] MEDS: ASCORBIC ACID 500 MG TABLET (FP) PO SCH (11:30)
[2020-08-25] MEDS: CARVEDILOL 6.25 MG TABLET (FP) PO SCH (11:30)
[2020-08-25] MEDS: FAMOTIDINE 20 MG TABLET PO SCH (11:30)
[2020-08-25] MEDS: CHOLECALCIFEROL (VIT D3) 1,000 UNIT (25 MCG) TABLET PO SCH (11:31)
[2020-08-25] MEDS: ENOXAPARIN NA (PORCINE) 40 MG/0.4 ML DISP.SYRIN SQ SCH (11:31)
[2020-08-25] MEDS: ASPIRIN 81 MG CHEWABLE TABLETS PO SCH (11:31)
[2020-08-25] MEDS: SACUBITRIL/VALSARTAN 24 MG-26 MG TABLET PO SCH (11:31)
[2020-08-25 14:30] VITALS: BP 118/66; PULSE 73; TEMP 97.9
== END 2020-08-25 16:45 | DRG 194 ==
LOC: JER 15:26 → JERBED 16:39 → J7W 08-22 23:18
PROVIDERS: ADMIT Internal Medicine; ATTEND Student in an Organized Health Care Education/Training Program
DX: I11.0 Hypertensive heart disease with heart failure (principal); I50.21 Acute systolic (congestive) heart failure; R50.9 Fever, unspecified; I44.0 Atrioventricular block, first degree; E88.09 Other disorders of plasma-protein metabolism, not elsewhere classified; J96.01 Acute respiratory failure with hypoxia; I25.10 Atherosclerotic heart disease of native coronary artery without angina pectoris; I25.5 Ischemic cardiomyopathy; I42.0 Dilated cardiomyopathy; I25.2 Old myocardial infarction; K76.1 Chronic passive congestion of liver; R26.9 Unspecified abnormalities of gait and mobility; R59.0 Localized enlarged lymph nodes; E78.00 Pure hypercholesterolemia, unspecified; R94.5 Abnormal results of liver function studies; E87.5 Hyperkalemia; F01.50 Vascular dementia, unspecified severity, without behavioral disturbance, psychotic disturbance, mood disturbance, and anxiety; E11.9 Type 2 diabetes mellitus without complications; Z86.73 Personal history of transient ischemic attack (TIA), and cerebral infarction without residual deficits; R41.89 Other symptoms and signs involving cognitive functions and awareness; Z95.810 Presence of automatic (implantable) cardiac defibrillator; G47.33 Obstructive sleep apnea (adult) (pediatric)
CPT/HCPCS: 36415; 36600; 71045-TC-FY; 71275-TC; 80053; 81003; 82728; 82803; 82962; 83605; 83615; 83735; 83880; 84100; 84484; 85025; 85379; 85384; 85610; 85730; 86140; 87040; 87086; 93005; 93010; 93971-TC; 97116-GP; 97161-GP; 99285-25; C9803; Q9967; U0003

== ENCOUNTER 2021-02-09 11:23 | Inpatient (IN) | payer OTHER ==
[2021-02-09 11:31] VITALS: BMI 29.2
[2021-02-09] MEDS ORDERED: FUROSEMIDE 100 MG/10 ML INJECTABLE VIAL IVPB ONE (12:03)
[2021-02-09] MEDS ORDERED: FUROSEMIDE 40 MG/4 ML INJECTABLE VIAL ONE ×2 (12:24→12:56)
[2021-02-09 12:29] LABS: BASO % 0.4 % (0-2.0); EOS % 0.5 % (0-4.5); HEMATOCRIT 37.4 % (35.4-49); HEMOGLOBIN 12.2 GM/dL (11.7-16.9); LYMPH % 32.7 % (8-40); MCH 26.9 pg (25.7-33.7); MCHC 32.5 g/dl (32.0-35.9); MEAN CELL VOLUME 82.9 fl (80-96); MEAN PLT VOLUME 8.8 fl (7.5-11.1); MONO % 15.4 % (3.8-10.2); PLATELET COUNT 146 K/MM3 (134-434); RBC 4.51 M/mm3 (4.00-5.60); RDW 19.3 % (11.9-15.9); WHITE BLOOD COUNT 3.9 K/mm3 (4.0-10.0)
[2021-02-09] MEDS ORDERED: FUROSEMIDE 40 MG/4 ML INJECTABLE VIAL IVPUSH ONE (12:31)
[2021-02-09 12:52] LABS: CALCIUM 8.6 mg/dL (8.5-10.1)
[2021-02-09 12:53] LABS: BLOOD UREA NITROGEN 21.6 mg/dL (7-18)
[2021-02-09 12:56] LABS: CREATININE 1.1 mg/dL (0.55-1.3)
[2021-02-09] MEDS: FUROSEMIDE 40 MG/4 ML INJECTABLE VIAL IVPUSH SCH (19:33)
[2021-02-09] MEDS: SACUBITRIL/VALSARTAN 24 MG-26 MG TABLET PO SCH (21:43)
[2021-02-09] MEDS: CARVEDILOL 6.25 MG TABLET (FP) PO SCH (21:43)
[2021-02-09] MEDS ORDERED: ATORVASTATIN CA 20 MG TABLET (FP) PO SCH (22:00)
[2021-02-10 07:56] LABS: BASO % 0.8 % (0-2.0); EOS % 0.8 % (0-4.5); HEMATOCRIT 36.1 % (35.4-49); HEMOGLOBIN 11.6 GM/dL (11.7-16.9); LYMPH % 26.1 % (8-40); MCH 26.5 pg (25.7-33.7); MEAN CELL VOLUME 82.6 fl (80-96); MEAN PLT VOLUME 9.3 fl (7.5-11.1); MONO % 16.9 % (3.8-10.2); NEUT % 55.4 % (42.8-82.8); PLATELET COUNT 125 K/MM3 (134-434); RBC 4.37 M/mm3 (4.00-5.60); RDW 19.3 % (11.9-15.9); WHITE BLOOD COUNT 4.4 K/mm3 (4.0-10.0)
[2021-02-10 08:21] LABS: ALBUMIN 2.4 g/dl (3.4-5.0); BLOOD UREA NITROGEN 25.3 mg/dL (7-18)
[2021-02-10 08:23] LABS: CALCIUM 8.1 mg/dL (8.5-10.1); MAGNESIUM 1.6 mg/dL (1.8-2.4)
[2021-02-10 08:24] LABS: ALBUMIN 2.4 g/dl (3.4-5.0)
[2021-02-10 08:25] LABS: CREATININE 1.1 mg/dL (0.55-1.3); PHOSPHOROUS 3.3 mg/dL (2.5-4.9)
[2021-02-10 08:26] LABS: BILIRUBIN,TOTAL 1.3 mg/dL (0.2-1); TOT PROT 6.6 g/dl (6.4-8.2)
[2021-02-10 08:27] LABS: BILIRUBIN,DIRECT 0.9 mg/dL (0.0-0.2)
[2021-02-10 08:29] LABS: BILIRUBIN,TOTAL 1.2 mg/dL (0.2-1); TOT PROT 6.5 g/dl (6.4-8.2)
[2021-02-10] MEDS ORDERED: PT OWN MED DRAWER 7, Y5N ONE (09:29)
[2021-02-10] MEDS: FUROSEMIDE 40 MG/4 ML INJECTABLE VIAL IVPUSH SCH (09:35)
[2021-02-10] MEDS: SACUBITRIL/VALSARTAN 24 MG-26 MG TABLET PO SCH ×2 (09:36→22:35)
[2021-02-10] MEDS: CARVEDILOL 6.25 MG TABLET (FP) PO SCH ×2 (09:37→21:46)
[2021-02-10] MEDS ORDERED: ASPIRIN 81 MG CHEWABLE TABLETS PO SCH (10:00)
[2021-02-10] MEDS ORDERED: ENOXAPARIN NA (PORCINE) 40 MG/0.4 ML DISP.SYRIN SQ SCH (10:00)
[2021-02-10] MEDS ORDERED: FUROSEMIDE 40 MG/4 ML INJECTABLE VIAL IVPUSH SCH (10:00)
[2021-02-10] MEDS: ATORVASTATIN CA 20 MG TABLET (FP) PO SCH (21:46)
[2021-02-11 10:13] LABS: HEMATOCRIT 38.4 % (35.4-49); HEMOGLOBIN 11.9 GM/dL (11.7-16.9); MCH 25.9 pg (25.7-33.7); MEAN CELL VOLUME 83.6 fl (80-96); MEAN PLT VOLUME 9.3 fl (7.5-11.1); PLATELET COUNT 128 K/MM3 (134-434); RDW 19.4 % (11.9-15.9); WHITE BLOOD COUNT 4.3 K/mm3 (4.0-10.0)
[2021-02-11 10:32] LABS: ALBUMIN 2.5 g/dl (3.4-5.0); CALCIUM 8.7 mg/dL (8.5-10.1)
[2021-02-11 10:33] LABS: BLOOD UREA NITROGEN 24.9 mg/dL (7-18); MAGNESIUM 1.8 mg/dL (1.8-2.4)
[2021-02-11 10:36] LABS: CREATININE 0.9 mg/dL (0.55-1.3)
[2021-02-11 10:37] LABS: BILIRUBIN,TOTAL 1.5 mg/dL (0.2-1); TOT PROT 7.2 g/dl (6.4-8.2)
[2021-02-11] MEDS ORDERED: PT OWN MED DRAWER 7, Y5N ONE (10:37)
[2021-02-11] MEDS: ASPIRIN 81 MG CHEWABLE TABLETS PO SCH (10:42)
[2021-02-11] MEDS: FUROSEMIDE 40 MG/4 ML INJECTABLE VIAL IVPUSH SCH (10:42)
[2021-02-11] MEDS: SACUBITRIL/VALSARTAN 24 MG-26 MG TABLET PO SCH ×2 (10:42→21:47)
[2021-02-11] MEDS: CARVEDILOL 6.25 MG TABLET (FP) PO SCH ×2 (10:42→21:47)
[2021-02-11] MEDS: ENOXAPARIN NA (PORCINE) 40 MG/0.4 ML DISP.SYRIN SQ SCH (10:43)
[2021-02-11] MEDS: ATORVASTATIN CA 20 MG TABLET (FP) PO SCH (21:46)
[2021-02-12] MEDS ORDERED: PT OWN MED DRAWER 7, Y5N ONE ×2 (09:27→21:45)
[2021-02-12] MEDS: CARVEDILOL 6.25 MG TABLET (FP) PO SCH ×2 (09:29→21:49)
[2021-02-12] MEDS: SACUBITRIL/VALSARTAN 24 MG-26 MG TABLET PO SCH ×2 (09:29→21:49)
[2021-02-12] MEDS: FUROSEMIDE 40 MG/4 ML INJECTABLE VIAL IVPUSH SCH (09:29)
[2021-02-12] MEDS: ASPIRIN 81 MG CHEWABLE TABLETS PO SCH (09:29)
[2021-02-12] MEDS: ENOXAPARIN NA (PORCINE) 40 MG/0.4 ML DISP.SYRIN SQ SCH (09:29)
[2021-02-12 10:06] LABS: ALBUMIN 2.5 g/dl (3.4-5.0); BLOOD UREA NITROGEN 25.1 mg/dL (7-18); CALCIUM 8.8 mg/dL (8.5-10.1)
[2021-02-12 10:08] LABS: MAGNESIUM 1.8 mg/dL (1.8-2.4)
[2021-02-12 10:10] LABS: CREATININE 0.9 mg/dL (0.55-1.3)
[2021-02-12 10:11] LABS: BILIRUBIN,TOTAL 1.4 mg/dL (0.2-1); TOT PROT 7.1 g/dl (6.4-8.2)
[2021-02-12 10:15] LABS: BASO % 0.8 % (0-2.0); EOS % 0.8 % (0-4.5); HEMATOCRIT 38.4 % (35.4-49); HEMOGLOBIN 12.2 GM/dL (11.7-16.9); LYMPH % 27.9 % (8-40); MCH 25.8 pg (25.7-33.7); MCHC 31.7 g/dl (32.0-35.9); MEAN CELL VOLUME 81.5 fl (80-96); MEAN PLT VOLUME 8.7 fl (7.5-11.1); MONO % 15.3 % (3.8-10.2); NEUT % 55.2 % (42.8-82.8); PLATELET COUNT 148 K/MM3 (134-434); RBC 4.71 M/mm3 (4.00-5.60); RDW 19.6 % (11.9-15.9); WHITE BLOOD COUNT 4.1 K/mm3 (4.0-10.0)
[2021-02-12 12:28] LABS: N-TERMINAL BNP 2411.2 pg/ml (5-125)
[2021-02-12] MEDS: ATORVASTATIN CA 20 MG TABLET (FP) PO SCH (21:49)
[2021-02-13] MEDS ORDERED: PT OWN MED DRAWER 7, Y5N ONE (08:53)
[2021-02-13] MEDS: SACUBITRIL/VALSARTAN 24 MG-26 MG TABLET PO SCH (09:01)
[2021-02-13] MEDS: CARVEDILOL 6.25 MG TABLET (FP) PO SCH (09:02)
[2021-02-13] MEDS: FUROSEMIDE 40 MG/4 ML INJECTABLE VIAL IVPUSH SCH (09:02)
[2021-02-13] MEDS: ASPIRIN 81 MG CHEWABLE TABLETS PO SCH (09:02)
[2021-02-13] MEDS: ENOXAPARIN NA (PORCINE) 40 MG/0.4 ML DISP.SYRIN SQ SCH (09:13)
[2021-02-13 14:19] VITALS: BP 103/62; PULSE 76; TEMP 97.8
== END 2021-02-13 15:04 | DRG 194 ==
LOC: JER 11:23 → JERBED 13:28 → J4W 16:26 → J5S 02-10 12:06
PROVIDERS: ATTEND Internal Medicine
DX: I11.0 Hypertensive heart disease with heart failure (principal); I50.43 Acute on chronic combined systolic (congestive) and diastolic (congestive) heart failure; F01.50 Vascular dementia, unspecified severity, without behavioral disturbance, psychotic disturbance, mood disturbance, and anxiety; I42.0 Dilated cardiomyopathy; E78.5 Hyperlipidemia, unspecified; E11.9 Type 2 diabetes mellitus without complications; I25.10 Atherosclerotic heart disease of native coronary artery without angina pectoris; R94.5 Abnormal results of liver function studies; I49.3 Ventricular premature depolarization; I25.2 Old myocardial infarction; Z86.73 Personal history of transient ischemic attack (TIA), and cerebral infarction without residual deficits; Z95.810 Presence of automatic (implantable) cardiac defibrillator
CPT/HCPCS: 36415; 71045-TC-FY; 80048; 80053; 80076; 82550; 83735; 83880; 84100; 84436; 84443; 84484; 85025; 85027; 93005; 93010; 97116-GP; 97162-GP; 99285-25; C9803; U0003; U0005

== ENCOUNTER 2021-02-24 13:59 | Inpatient (IN) | payer OTHER ==
[2021-02-24 15:23] LABS: BASO % 0.7 % (0-2.0); EOS % 1.1 % (0-4.5); HEMATOCRIT 35.6 % (35.4-49); HEMOGLOBIN 11.5 GM/dL (11.7-16.9); LYMPH % 20.5 % (8-40); MCH 25.8 pg (25.7-33.7); MCHC 32.3 g/dl (32.0-35.9); MEAN CELL VOLUME 79.8 fl (80-96); MEAN PLT VOLUME 8.6 fl (7.5-11.1); NEUT % 60.7 % (42.8-82.8); PLATELET COUNT 143 10^3/uL (134-434); RBC 4.46 M/mm3 (4.00-5.60); RDW 19.4 % (11.9-15.9); WHITE BLOOD COUNT 4.5 K/mm3 (4.0-10.0)
[2021-02-24 15:28] LABS: VENOUS BASE EXCESS 2.3 mmol/L (-2-2); VENOUS PCO2 54.2 mmHg (38-52); VENOUS PH 7.345 (7.310-7.410)
[2021-02-24 15:30] LABS: INR 1.6 (0.83-1.09); PROTHROMBIN TIME (PATIENT) 19.4 SEC (9.7-13.0)
[2021-02-24 15:50] LABS: CHLORIDE 98 mmol/L (98-107); SODIUM 134 mmol/L (136-145)
[2021-02-24 15:53] LABS: ALBUMIN 2.5 g/dl (3.4-5.0); ANION GAP 8 MMOL/L (8-16); CALCIUM 8.8 mg/dL (8.5-10.1); CO2 27 mmol/L (21-32); GLUCOSE,RANDOM 91 mg/dL (74-106); MAGNESIUM 1.7 mg/dL (1.8-2.4)
[2021-02-24 15:57] LABS: BILIRUBIN,TOTAL 1.6 mg/dL (0.2-1); CREATININE 1.1 mg/dL (0.55-1.3); SGOT/AST 23 U/L (15-37); SGPT/ALT 22 U/L (13-61); TOT PROT 7.1 g/dl (6.4-8.2)
[2021-02-24 15:58] LABS: ALK PHOS 121 U/L (45-117)
[2021-02-24 16:01] LABS: N-TERMINAL BNP 3150.2 pg/ml (5-125)
[2021-02-24] MEDS ORDERED: FUROSEMIDE 40 MG/4 ML INJECTABLE VIAL IVPUSH ONE ×2 (16:07→16:22)
[2021-02-24] MEDS ORDERED: ACETAMINOPHEN 1000 MG/100 ML VIAL (NON FORMULARY) IVPB ONE (16:31)
[2021-02-24] MEDS ORDERED: FUROSEMIDE 40 MG/4 ML INJECTABLE VIAL ONE (16:52)
[2021-02-24] MEDS ORDERED: ACETAMINOPHEN INJECTION 100 ML IVPB ONE (17:08)
[2021-02-24 18:49] LABS: VENOUS BASE EXCESS 1.6 mmol/L (-2-2); VENOUS O2 SATURATION 34.7 % (70-80); VENOUS PCO2 45.4 mmHg (38-52); VENOUS PH 7.392 (7.310-7.410)
[2021-02-24 20:27] LABS: PH,URINE 5.5 (5.0-8.0); URINE APPEARANCE CLEAR; URINE BILIRUBIN NEGATIVE (NEGATIVE); URINE COLOR YELLOW; URINE GLUCOSE (UA) NEGATIVE (NEGATIVE); URINE KETONE NEGATIVE (NEGATIVE); URINE LEUK ESTERASE NEGATIVE (NEGATIVE); URINE NITRITE NEGATIVE (NEGATIVE); URINE PROTEIN TRACE (NEGATIVE)
[2021-02-24] MEDS ORDERED: LORazepam 2 MG TABLET PO ONE (21:46)
[2021-02-24] MEDS ORDERED: LORazepam 1 MG TABLET ONE (21:50)
[2021-02-24] MEDS ORDERED: MAGNESIUM SULF 50% (8.12 MEQ/2 ML-1 GM VIAL) IVPB ONE (22:25)
[2021-02-25] MEDS ORDERED: FUROSEMIDE 40 MG/4 ML INJECTABLE VIAL IVPUSH ONE (01:06)
[2021-02-25] MEDS: FUROSEMIDE 40 MG/4 ML INJECTABLE VIAL IVPUSH SCH (09:45)
[2021-02-25] MEDS: CARVEDILOL 6.25 MG TABLET (FP) PO SCH ×2 (09:45→21:30)
[2021-02-25] MEDS: ENOXAPARIN NA (PORCINE) 40 MG/0.4 ML DISP.SYRIN SQ SCH (09:45)
[2021-02-25] MEDS: ASPIRIN 81 MG CHEWABLE TABLETS PO SCH (09:45)
[2021-02-25] MEDS ORDERED: PATIENT'S OWN MEDICATION (NON-FORMULARY) (Dapagliflozin Propanediol [Farxiga] 10 MG Tablet PO SCH (10:00)
[2021-02-25] MEDS ORDERED: PT OWN MED DRAWER 7, Y5N ONE ×2 (10:11→21:25)
[2021-02-25] MEDS: SACUBITRIL/VALSARTAN 24 MG-26 MG TABLET PO SCH ×2 (11:20→21:30)
[2021-02-25 12:46] LABS: BASO % 1.3 % (0-2.0); EOS % 1.5 % (0-4.5); HEMATOCRIT 34.5 % (35.4-49); HEMOGLOBIN 10.9 GM/dL (11.7-16.9); LYMPH % 19.1 % (8-40); MCH 25.6 pg (25.7-33.7); MCHC 31.5 g/dl (32.0-35.9); MEAN CELL VOLUME 81.4 fl (80-96); MEAN PLT VOLUME 8.7 fl (7.5-11.1); MONO % 14.3 % (3.8-10.2); NEUT % 63.8 % (42.8-82.8); PLATELET COUNT 148 10^3/uL (134-434); RBC 4.24 M/mm3 (4.00-5.60); RDW 19.3 % (11.9-15.9); WHITE BLOOD COUNT 4.1 K/mm3 (4.0-10.0)
[2021-02-25 13:09] LABS: CALCIUM 8.8 mg/dL (8.5-10.1)
[2021-02-25 13:10] LABS: ALBUMIN 2.6 g/dl (3.4-5.0); BLOOD UREA NITROGEN 24.4 mg/dL (7-18); MAGNESIUM 1.8 mg/dL (1.8-2.4)
[2021-02-25 13:13] LABS: PHOSPHOROUS 3.9 mg/dL (2.5-4.9)
[2021-02-25 13:14] LABS: BILIRUBIN,TOTAL 1.7 mg/dL (0.2-1); TOT PROT 7.1 g/dl (6.4-8.2)
[2021-02-25] MEDS: ATORVASTATIN CA 20 MG TABLET (FP) PO SCH (21:30)
[2021-02-25] MEDS: DONEPEZIL HCL 10 MG TABLET (FP) PO SCH (21:30)
[2021-02-26] MEDS ORDERED: LORazepam 1 MG TABLET PO ONE (00:24)
[2021-02-26 08:13] LABS: BASO % 1.1 % (0-2.0); EOS % 1.2 % (0-4.5); HEMATOCRIT 34.7 % (35.4-49); LYMPH % 22.4 % (8-40); MCH 25.7 pg (25.7-33.7); MCHC 31.6 g/dl (32.0-35.9); MEAN CELL VOLUME 81.3 fl (80-96); MEAN PLT VOLUME 8.8 fl (7.5-11.1); NEUT % 58.3 % (42.8-82.8); PLATELET COUNT 145 10^3/uL (134-434); RBC 4.27 M/mm3 (4.00-5.60); RDW 19.4 % (11.9-15.9); WHITE BLOOD COUNT 4.6 K/mm3 (4.0-10.0)
[2021-02-26 08:24] LABS: ALBUMIN 2.6 g/dl (3.4-5.0); CALCIUM 8.6 mg/dL (8.5-10.1)
[2021-02-26 08:25] LABS: BILIRUBIN,TOTAL 2.1 mg/dL (0.2-1); MAGNESIUM 1.9 mg/dL (1.8-2.4)
[2021-02-26 08:26] LABS: TOT PROT 7.2 g/dl (6.4-8.2)
[2021-02-26] MEDS ORDERED: LORazepam 2 MG TABLET PO PRN (08:32)
[2021-02-26] MEDS ORDERED: PT OWN MED DRAWER 7, Y5N ONE ×2 (09:35→22:11)
[2021-02-26] MEDS: FUROSEMIDE 40 MG/4 ML INJECTABLE VIAL IVPUSH SCH (09:39)
[2021-02-26] MEDS: ENOXAPARIN NA (PORCINE) 40 MG/0.4 ML DISP.SYRIN SQ SCH (09:39)
[2021-02-26] MEDS: ASPIRIN 81 MG CHEWABLE TABLETS PO SCH (09:40)
[2021-02-26] MEDS: CARVEDILOL 6.25 MG TABLET (FP) PO SCH ×2 (09:40→22:11)
[2021-02-26] MEDS: SACUBITRIL/VALSARTAN 24 MG-26 MG TABLET PO SCH ×2 (09:40→22:12)
[2021-02-26] MEDS: LORazepam 1 MG TABLET PO PRN ×2 (09:41→22:12)
[2021-02-26] MEDS ORDERED: MINERAL OIL ENEMA 133 ML ENEMA PR ONE (15:57)
[2021-02-26] MEDS: ATORVASTATIN CA 20 MG TABLET (FP) PO SCH (22:11)
[2021-02-26] MEDS: DONEPEZIL HCL 10 MG TABLET (FP) PO SCH (22:12)
[2021-02-27] MEDS ORDERED: LORazepam 1 MG TABLET PO ONE (00:01)
[2021-02-27 08:18] LABS: BASO % 0.5 % (0-2.0); EOS % 0.5 % (0-4.5); HEMATOCRIT 33.4 % (35.4-49); HEMOGLOBIN 10.9 GM/dL (11.7-16.9); LYMPH % 18.9 % (8-40); MCH 26.1 pg (25.7-33.7); MCHC 32.6 g/dl (32.0-35.9); MEAN PLT VOLUME 8.5 fl (7.5-11.1); MONO % 14.8 % (3.8-10.2); NEUT % 65.3 % (42.8-82.8); PLATELET COUNT 136 10^3/uL (134-434); RBC 4.17 M/mm3 (4.00-5.60); RDW 19.3 % (11.9-15.9); WHITE BLOOD COUNT 5.6 K/mm3 (4.0-10.0)
[2021-02-27 08:32] LABS: CALCIUM 8.3 mg/dL (8.5-10.1)
[2021-02-27 08:33] LABS: ALBUMIN 2.6 g/dl (3.4-5.0); BLOOD UREA NITROGEN 30.6 mg/dL (7-18)
[2021-02-27 08:36] LABS: CREATININE 1.1 mg/dL (0.55-1.3)
[2021-02-27 08:38] LABS: BILIRUBIN,TOTAL 2.4 mg/dL (0.2-1); TOT PROT 7.2 g/dl (6.4-8.2)
[2021-02-27] MEDS ORDERED: PT OWN MED DRAWER 7, Y5N ONE ×2 (08:55→21:57)
[2021-02-27] MEDS: CARVEDILOL 6.25 MG TABLET (FP) PO SCH ×2 (09:00→21:56)
[2021-02-27] MEDS: FUROSEMIDE 40 MG/4 ML INJECTABLE VIAL IVPUSH SCH (09:00)
[2021-02-27] MEDS: SACUBITRIL/VALSARTAN 24 MG-26 MG TABLET PO SCH ×2 (09:01→21:57)
[2021-02-27] MEDS: ASPIRIN 81 MG CHEWABLE TABLETS PO SCH (09:01)
[2021-02-27] MEDS: ENOXAPARIN NA (PORCINE) 40 MG/0.4 ML DISP.SYRIN SQ SCH (09:01)
[2021-02-27 11:07] LABS: ARTERIAL BLD GAS O2 SATURATION 98.7 mmHg (95-98); ARTERIAL BLOOD GAS BASE EXCESS 3.1 mmol/L (-2-2); ARTERIAL BLOOD GAS PO2 123.4 mmHg (80-100); ARTERIAL BLOOD GAS pH 7.484 (7.350-7.450)
[2021-02-27 11:16] LABS: ALLENS TEST POSITIVE
[2021-02-27] MEDS ORDERED: FUROSEMIDE 40 MG/4 ML INJECTABLE VIAL IVPUSH ONE (14:00)
[2021-02-27] MEDS ORDERED: LACTULOSE 20 GM/30 ML UDC (FOR ORAL USE ONLY) PO ONE (19:19)
[2021-02-27] MEDS: LORazepam 1 MG TABLET PO PRN (21:55)
[2021-02-27] MEDS: DONEPEZIL HCL 10 MG TABLET (FP) PO SCH (21:56)
[2021-02-27] MEDS: ATORVASTATIN CA 20 MG TABLET (FP) PO SCH (21:56)
[2021-02-28] MEDS: ASPIRIN 81 MG CHEWABLE TABLETS PO SCH (09:06)
[2021-02-28] MEDS: FUROSEMIDE 40 MG/4 ML INJECTABLE VIAL IVPUSH SCH (09:06)
[2021-02-28] MEDS: CARVEDILOL 6.25 MG TABLET (FP) PO SCH ×2 (09:06→21:13)
[2021-02-28] MEDS: SACUBITRIL/VALSARTAN 24 MG-26 MG TABLET PO SCH ×2 (09:06→23:10)
[2021-02-28] MEDS: ENOXAPARIN NA (PORCINE) 40 MG/0.4 ML DISP.SYRIN SQ SCH (09:08)
[2021-02-28 10:58] LABS: BASO % 1.6 % (0-2.0); EOS % 1.7 % (0-4.5); HEMATOCRIT 34.3 % (35.4-49); HEMOGLOBIN 10.8 GM/dL (11.7-16.9); LYMPH % 23.7 % (8-40); MCH 25.7 pg (25.7-33.7); MCHC 31.4 g/dl (32.0-35.9); MEAN CELL VOLUME 81.6 fl (80-96); MEAN PLT VOLUME 8.8 fl (7.5-11.1); MONO % 15.2 % (3.8-10.2); NEUT % 57.8 % (42.8-82.8); PLATELET COUNT 146 10^3/uL (134-434); RDW 19.5 % (11.9-15.9); WHITE BLOOD COUNT 4.1 K/mm3 (4.0-10.0)
[2021-02-28 11:24] LABS: BLOOD UREA NITROGEN 30.1 mg/dL (7-18); CALCIUM 8.3 mg/dL (8.5-10.1)
[2021-02-28 11:25] LABS: ALBUMIN 2.5 g/dl (3.4-5.0); MAGNESIUM 2.1 mg/dL (1.8-2.4)
[2021-02-28 11:28] LABS: CREATININE 1.1 mg/dL (0.55-1.3)
[2021-02-28 11:29] LABS: TOT PROT 6.9 g/dl (6.4-8.2)
[2021-02-28] MEDS: DONEPEZIL HCL 10 MG TABLET (FP) PO SCH (21:13)
[2021-02-28] MEDS: ATORVASTATIN CA 20 MG TABLET (FP) PO SCH (21:13)
[2021-02-28] MEDS: LACTULOSE 20 GM/30 ML UDC (FOR ORAL USE ONLY) PO SCH (21:13)
[2021-02-28] MEDS: LORazepam 1 MG TABLET PO PRN (21:13)
[2021-02-28] MEDS ORDERED: PT OWN MED DRAWER 7, Y5N ONE (21:16)
[2021-03-01] MEDS: LACTULOSE 20 GM/30 ML UDC (FOR ORAL USE ONLY) PO SCH (06:36)
[2021-03-01 06:57] LABS: BASO % 1.5 % (0-2.0); EOS % 2.5 % (0-4.5); HEMATOCRIT 33.8 % (35.4-49); LYMPH % 23.5 % (8-40); MCH 26.1 pg (25.7-33.7); MCHC 32.6 g/dl (32.0-35.9); MEAN CELL VOLUME 80.2 fl (80-96); MEAN PLT VOLUME 8.6 fl (7.5-11.1); MONO % 17.2 % (3.8-10.2); NEUT % 55.3 % (42.8-82.8); PLATELET COUNT 153 10^3/uL (134-434); RBC 4.21 M/mm3 (4.00-5.60); RDW 19.6 % (11.9-15.9); WHITE BLOOD COUNT 4.3 K/mm3 (4.0-10.0)
[2021-03-01 07:19] LABS: ALBUMIN 2.6 g/dl (3.4-5.0); CALCIUM 8.3 mg/dL (8.5-10.1)
[2021-03-01 07:20] LABS: BLOOD UREA NITROGEN 30.4 mg/dL (7-18); MAGNESIUM 2.1 mg/dL (1.8-2.4)
[2021-03-01 07:21] LABS: BILIRUBIN,TOTAL 2.2 mg/dL (0.2-1); TOT PROT 7.2 g/dl (6.4-8.2)
[2021-03-01 07:28] LABS: CREATININE 0.9 mg/dL (0.55-1.3)
[2021-03-01] MEDS ORDERED: PT OWN MED DRAWER 7, Y5N ONE ×3 (09:02→21:14)
[2021-03-01] MEDS: CARVEDILOL 6.25 MG TABLET (FP) PO SCH ×2 (09:46→21:17)
[2021-03-01] MEDS: SACUBITRIL/VALSARTAN 24 MG-26 MG TABLET PO SCH ×2 (09:46→21:17)
[2021-03-01] MEDS: ENOXAPARIN NA (PORCINE) 40 MG/0.4 ML DISP.SYRIN SQ SCH (09:47)
[2021-03-01] MEDS: FUROSEMIDE 40 MG/4 ML INJECTABLE VIAL IVPUSH SCH (09:47)
[2021-03-01] MEDS: ASPIRIN 81 MG CHEWABLE TABLETS PO SCH (09:47)
[2021-03-01] MEDS: LORazepam 1 MG TABLET PO PRN ×2 (12:01→22:18)
[2021-03-01] MEDS ORDERED: HALOPERIDOL LACTATE 5 MG/ML IM ONE (16:59)
[2021-03-01] MEDS: ATORVASTATIN CA 20 MG TABLET (FP) PO SCH (21:17)
[2021-03-01] MEDS: DONEPEZIL HCL 10 MG TABLET (FP) PO SCH (21:17)
[2021-03-01] MEDS: RIFAXIMIN 550 MG TABLET (UD) PO SCH (21:17)
[2021-03-02 07:47] LABS: BASO % 0.2 % (0-2.0); HEMATOCRIT 34.5 % (35.4-49); HEMOGLOBIN 10.7 GM/dL (11.7-16.9); LYMPH % 15.8 % (8-40); MCH 25.6 pg (25.7-33.7); MEAN CELL VOLUME 82.6 fl (80-96); MEAN PLT VOLUME 9.3 fl (7.5-11.1); MONO % 10.4 % (3.8-10.2); NEUT % 73.6 % (42.8-82.8); PLATELET COUNT 173 10^3/uL (134-434); RBC 4.17 M/mm3 (4.00-5.60); RDW 19.7 % (11.9-15.9); WHITE BLOOD COUNT 5.9 K/mm3 (4.0-10.0)
[2021-03-02 07:55] LABS: CALCIUM 8.5 mg/dL (8.5-10.1)
[2021-03-02 07:56] LABS: ALBUMIN 2.6 g/dl (3.4-5.0)
[2021-03-02 07:57] LABS: MAGNESIUM 2.1 mg/dL (1.8-2.4)
[2021-03-02 08:01] LABS: BILIRUBIN,TOTAL 2.3 mg/dL (0.2-1); TOT PROT 6.8 g/dl (6.4-8.2)
[2021-03-02] MEDS: ASPIRIN 81 MG CHEWABLE TABLETS PO SCH (09:52)
[2021-03-02] MEDS: FUROSEMIDE 40 MG/4 ML INJECTABLE VIAL IVPUSH SCH (09:53)
[2021-03-02] MEDS: ENOXAPARIN NA (PORCINE) 40 MG/0.4 ML DISP.SYRIN SQ SCH (09:53)
[2021-03-02] MEDS: CARVEDILOL 6.25 MG TABLET (FP) PO SCH ×2 (09:53→21:30)
[2021-03-02] MEDS: LORazepam 1 MG TABLET PO PRN ×2 (09:53→21:54)
[2021-03-02] MEDS ORDERED: PT OWN MED DRAWER 7, Y5N ONE ×2 (09:55→21:28)
[2021-03-02] MEDS: RIFAXIMIN 550 MG TABLET (UD) PO SCH ×2 (09:55→21:29)
[2021-03-02] MEDS: SACUBITRIL/VALSARTAN 24 MG-26 MG TABLET PO SCH ×2 (09:55→21:29)
[2021-03-02] MEDS: ATORVASTATIN CA 20 MG TABLET (FP) PO SCH (21:29)
[2021-03-02] MEDS: DONEPEZIL HCL 10 MG TABLET (FP) PO SCH (21:29)
[2021-03-03] MEDS ORDERED: FUROSEMIDE 40 MG/4 ML INJECTABLE VIAL IVPUSH ONE ×2 (09:53→11:59)
[2021-03-03] MEDS ORDERED: FUROSEMIDE 40 MG TABLET (FP) PO SCH (10:00)
[2021-03-03] MEDS: ENOXAPARIN NA (PORCINE) 40 MG/0.4 ML DISP.SYRIN SQ SCH (10:39)
[2021-03-03] MEDS: RIFAXIMIN 550 MG TABLET (UD) PO SCH ×2 (10:39→21:27)
[2021-03-03] MEDS: SACUBITRIL/VALSARTAN 24 MG-26 MG TABLET PO SCH ×2 (10:40→21:27)
[2021-03-03] MEDS: LORazepam 1 MG TABLET PO PRN ×2 (10:40→18:25)
[2021-03-03] MEDS: ASPIRIN 81 MG CHEWABLE TABLETS PO SCH (10:40)
[2021-03-03] MEDS: ALBUTEROL SO4 2.5/IPRATROPIUM 0.5 INH SOL 3 ML VIAL.NEB. NEB PRN ×4 (10:41→20:33)
[2021-03-03] MEDS: CARVEDILOL 6.25 MG TABLET (FP) PO SCH ×2 (10:41→21:27)
[2021-03-03] MEDS: guaiFENesin 200 MG/10 ML 10 ML UNIT-DOSE CUPS PO PRN (10:43)
[2021-03-03] MEDS ORDERED: HALOPERIDOL LACTATE 5 MG/ML IM ONE (12:03)
[2021-03-03] MEDS ORDERED: PT OWN MED DRAWER 7, Y5N ONE (21:20)
[2021-03-03] MEDS: ATORVASTATIN CA 20 MG TABLET (FP) PO SCH (21:27)
[2021-03-03] MEDS: DONEPEZIL HCL 10 MG TABLET (FP) PO SCH (21:27)
[2021-03-04 08:07] LABS: BASO % 0.3 % (0-2.0); HEMATOCRIT 36.3 % (35.4-49); HEMOGLOBIN 11.5 GM/dL (11.7-16.9); LYMPH % 16.9 % (8-40); MCH 25.9 pg (25.7-33.7); MCHC 31.6 g/dl (32.0-35.9); MEAN CELL VOLUME 81.8 fl (80-96); MEAN PLT VOLUME 9.2 fl (7.5-11.1); MONO % 11.5 % (3.8-10.2); NEUT % 71.3 % (42.8-82.8); PLATELET COUNT 188 10^3/uL (134-434); RBC 4.44 M/mm3 (4.00-5.60); RDW 20.1 % (11.9-15.9); WHITE BLOOD COUNT 6.4 K/mm3 (4.0-10.0)
[2021-03-04 08:24] LABS: ALBUMIN 2.5 g/dl (3.4-5.0); BLOOD UREA NITROGEN 32.5 mg/dL (7-18); CALCIUM 8.4 mg/dL (8.5-10.1); MAGNESIUM 2.1 mg/dL (1.8-2.4)
[2021-03-04 08:27] LABS: CREATININE 1.1 mg/dL (0.55-1.3)
[2021-03-04 08:29] LABS: BILIRUBIN,TOTAL 2.3 mg/dL (0.2-1); TOT PROT 7.4 g/dl (6.4-8.2)
[2021-03-04] MEDS: CARVEDILOL 6.25 MG TABLET (FP) PO SCH ×2 (09:32→22:43)
[2021-03-04] MEDS: guaiFENesin 200 MG/10 ML 10 ML UNIT-DOSE CUPS PO PRN (09:32)
[2021-03-04] MEDS: ASPIRIN 81 MG CHEWABLE TABLETS PO SCH (09:33)
[2021-03-04] MEDS: DONEPEZIL HCL 10 MG TABLET (FP) PO SCH ×2 (09:33→22:43)
[2021-03-04] MEDS ORDERED: PT OWN MED DRAWER 7, Y5N ONE (09:51)
[2021-03-04] MEDS: RIFAXIMIN 550 MG TABLET (UD) PO SCH ×2 (09:52→22:43)
[2021-03-04] MEDS: SACUBITRIL/VALSARTAN 24 MG-26 MG TABLET PO SCH ×2 (09:52→22:43)
[2021-03-04] MEDS: METOLAZONE 5 MG TABLET PO SCH (09:53)
[2021-03-04] MEDS: LORazepam 1 MG TABLET PO PRN ×2 (09:57→18:39)
[2021-03-04] MEDS: ALBUTEROL SO4 2.5/IPRATROPIUM 0.5 INH SOL 3 ML VIAL.NEB. NEB PRN ×2 (10:10→15:20)
[2021-03-04] MEDS: FUROSEMIDE 40 MG/4 ML INJECTABLE VIAL IVPUSH SCH (11:47)
[2021-03-04] MEDS ORDERED: HALOPERIDOL LACTATE 5 MG/ML IM ONE (15:12)
[2021-03-04] MEDS ORDERED: FUROSEMIDE 40 MG/4 ML INJECTABLE VIAL ONE ×2 (20:50→20:55)
[2021-03-04] MEDS ORDERED: FUROSEMIDE 40 MG/4 ML INJECTABLE VIAL IVPUSH ONE ×2 (20:55→20:57)
[2021-03-04 21:19] LABS: ALLENS TEST POSITIVE; ARTERIAL BLD GAS O2 SATURATION 99.6 mmHg (95-98); ARTERIAL BLOOD GAS BASE EXCESS 1.7 mmol/L (-2-2); ARTERIAL BLOOD GAS PO2 262.1 mmHg (80-100); ARTERIAL BLOOD GAS pH 7.413 (7.350-7.450)
[2021-03-04 21:46] LABS: BASO % 0.7 % (0-2.0); EOS % 1.6 % (0-4.5); HEMATOCRIT 33.1 % (35.4-49); HEMOGLOBIN 10.8 GM/dL (11.7-16.9); LYMPH % 15.8 % (8-40); MCH 26.3 pg (25.7-33.7); MCHC 32.6 g/dl (32.0-35.9); MEAN CELL VOLUME 80.6 fl (80-96); MEAN PLT VOLUME 8.6 fl (7.5-11.1); MONO % 19.8 % (3.8-10.2); NEUT % 62.1 % (42.8-82.8); PLATELET COUNT 173 10^3/uL (134-434); RBC 4.11 M/mm3 (4.00-5.60); RDW 20.2 % (11.9-15.9); WHITE BLOOD COUNT 4.3 K/mm3 (4.0-10.0)
[2021-03-04 22:06] LABS: CHLORIDE 104 mmol/L (98-107); SODIUM 137 mmol/L (136-145)
[2021-03-04 22:08] LABS: CALCIUM 8.3 mg/dL (8.5-10.1)
[2021-03-04 22:09] LABS: ALBUMIN 2.4 g/dl (3.4-5.0); ANION GAP 5 MMOL/L (8-16); BLOOD UREA NITROGEN 30.3 mg/dL (7-18); CO2 28 mmol/L (21-32); GLUCOSE,RANDOM 138 mg/dL (74-106)
[2021-03-04 22:12] LABS: SGOT/AST 34 U/L (15-37); SGPT/ALT 27 U/L (13-61)
[2021-03-04 22:13] LABS: BILIRUBIN,TOTAL 1.6 mg/dL (0.2-1)
[2021-03-04 22:14] LABS: ALK PHOS 137 U/L (45-117)
[2021-03-04 22:20] LABS: LACTIC ACID 2.2 mmol/L (0.4-2.0)
[2021-03-04] MEDS: ATORVASTATIN CA 20 MG TABLET (FP) PO SCH (22:43)
[2021-03-05] MEDS ORDERED: HALOPERIDOL LACTATE 5 MG/ML IM ONE (03:32)
[2021-03-05] MEDS: ALBUTEROL SO4 2.5/IPRATROPIUM 0.5 INH SOL 3 ML VIAL.NEB. NEB PRN (03:40)
[2021-03-05 06:56] LABS: BASO % 0.5 % (0-2.0); EOS % 1.4 % (0-4.5); HEMATOCRIT 35.2 % (35.4-49); HEMOGLOBIN 11.1 GM/dL (11.7-16.9); LYMPH % 21.2 % (8-40); MCH 25.7 pg (25.7-33.7); MCHC 31.6 g/dl (32.0-35.9); MEAN CELL VOLUME 81.5 fl (80-96); MONO % 17.8 % (3.8-10.2); NEUT % 59.1 % (42.8-82.8); PLATELET COUNT 192 10^3/uL (134-434); RBC 4.32 M/mm3 (4.00-5.60); RDW 20.5 % (11.9-15.9); WHITE BLOOD COUNT 4.5 K/mm3 (4.0-10.0)
[2021-03-05 07:21] LABS: CALCIUM 8.5 mg/dL (8.5-10.1)
[2021-03-05 07:22] LABS: ALBUMIN 2.6 g/dl (3.4-5.0); BLOOD UREA NITROGEN 28.4 mg/dL (7-18); MAGNESIUM 2.1 mg/dL (1.8-2.4)
[2021-03-05 07:25] LABS: BILIRUBIN,TOTAL 1.6 mg/dL (0.2-1); TOT PROT 7.2 g/dl (6.4-8.2)
[2021-03-05] MEDS: ASPIRIN 81 MG CHEWABLE TABLETS PO SCH (09:58)
[2021-03-05] MEDS: FUROSEMIDE 40 MG/4 ML INJECTABLE VIAL IVPUSH SCH ×2 (09:58→13:16)
[2021-03-05 10:06] LABS: ANISOCYTOSIS 1+; MACROCYTOSIS 1+; OVALOCYTE 1+; PLATELET ESTIMATE NORMAL; TARGET CELLS 2+
[2021-03-05] MEDS: SACUBITRIL/VALSARTAN 24 MG-26 MG TABLET PO SCH ×2 (10:09→22:00)
[2021-03-05] MEDS: CARVEDILOL 6.25 MG TABLET (FP) PO SCH ×2 (10:09→22:00)
[2021-03-05] MEDS: DONEPEZIL HCL 10 MG TABLET (FP) PO SCH (22:00)
[2021-03-05] MEDS: ATORVASTATIN CA 20 MG TABLET (FP) PO SCH (22:00)
[2021-03-05] MEDS: RIFAXIMIN 550 MG TABLET (UD) PO SCH (22:00)
[2021-03-06] MEDS ORDERED: LORazepam 2 MG/ML SDV VIAL IVPUSH ONE (01:14)
[2021-03-06] MEDS: FUROSEMIDE 40 MG/4 ML INJECTABLE VIAL IVPUSH SCH ×2 (06:28→14:36)
[2021-03-06 06:44] LABS: BASO % 0.3 % (0-2.0); EOS % 0.2 % (0-4.5); HEMATOCRIT 32.3 % (35.4-49); HEMOGLOBIN 10.5 GM/dL (11.7-16.9); LYMPH % 11.8 % (8-40); MCH 26.3 pg (25.7-33.7); MCHC 32.7 g/dl (32.0-35.9); MEAN CELL VOLUME 80.5 fl (80-96); MEAN PLT VOLUME 8.3 fl (7.5-11.1); MONO % 14.7 % (3.8-10.2); PLATELET COUNT 166 10^3/uL (134-434); RBC 4.01 M/mm3 (4.00-5.60); WHITE BLOOD COUNT 6.4 K/mm3 (4.0-10.0)
[2021-03-06 06:54] LABS: CALCIUM 8.5 mg/dL (8.5-10.1)
[2021-03-06 06:55] LABS: ALBUMIN 2.4 g/dl (3.4-5.0); BLOOD UREA NITROGEN 27.4 mg/dL (7-18); MAGNESIUM 1.9 mg/dL (1.8-2.4)
[2021-03-06 06:58] LABS: PHOSPHOROUS 3.3 mg/dL (2.5-4.9)
[2021-03-06 06:59] LABS: BILIRUBIN,TOTAL 1.8 mg/dL (0.2-1)
[2021-03-06] MEDS: RIFAXIMIN 550 MG TABLET (UD) PO SCH ×2 (10:13→22:12)
[2021-03-06] MEDS: DONEPEZIL HCL 10 MG TABLET (FP) PO SCH ×2 (10:13→22:12)
[2021-03-06] MEDS: ASPIRIN 81 MG CHEWABLE TABLETS PO SCH (10:13)
[2021-03-06] MEDS: CARVEDILOL 6.25 MG TABLET (FP) PO SCH ×2 (10:13→22:12)
[2021-03-06] MEDS: SACUBITRIL/VALSARTAN 24 MG-26 MG TABLET PO SCH ×2 (10:13→22:12)
[2021-03-06] MEDS: METOLAZONE 5 MG TABLET PO SCH (10:14)
[2021-03-06 20:19] LABS: PH,URINE 6.5 (5.0-8.0); URINE APPEARANCE Clear; URINE BILIRUBIN Negative (NEGATIVE); URINE COLOR Yellow; URINE GLUCOSE (UA) Negative (NEGATIVE); URINE KETONE Negative (NEGATIVE); URINE LEUK ESTERASE 2+ (NEGATIVE); URINE NITRITE Negative (NEGATIVE); URINE PROTEIN Negative (NEGATIVE); URINE UROBILINOGEN 0.2 mg/dL (0.2-1.0)
[2021-03-06 21:01] LABS: EPI CELLS 2.2 /uL (0-25.1); HYALINE CASTS 1.77 /uL (0-3.1); URINE RBC 19.5 /uL (0-23.9); URINE WBC 150.5 /uL (0-25.8)
[2021-03-06] MEDS: guaiFENesin 200 MG/10 ML 10 ML UNIT-DOSE CUPS PO PRN (22:12)
[2021-03-06] MEDS: ATORVASTATIN CA 20 MG TABLET (FP) PO SCH (22:13)
[2021-03-07] MEDS: FUROSEMIDE 40 MG/4 ML INJECTABLE VIAL IVPUSH SCH ×2 (05:40→15:17)
[2021-03-07 06:48] LABS: CALCIUM 8.8 mg/dL (8.5-10.1)
[2021-03-07 06:49] LABS: ALBUMIN 2.6 g/dl (3.4-5.0); MAGNESIUM 1.9 mg/dL (1.8-2.4)
[2021-03-07 06:52] LABS: PHOSPHOROUS 3.4 mg/dL (2.5-4.9)
[2021-03-07 06:54] LABS: TOT PROT 7.3 g/dl (6.4-8.2)
[2021-03-07 07:17] LABS: BASO % 0.3 % (0-2.0); EOS % 0.6 % (0-4.5); HEMATOCRIT 36.8 % (35.4-49); HEMOGLOBIN 11.7 GM/dL (11.7-16.9); LYMPH % 17.9 % (8-40); MCH 25.9 pg (25.7-33.7); MCHC 31.8 g/dl (32.0-35.9); MEAN CELL VOLUME 81.4 fl (80-96); MEAN PLT VOLUME 9.1 fl (7.5-11.1); MONO % 14.4 % (3.8-10.2); NEUT % 66.8 % (42.8-82.8); PLATELET COUNT 177 10^3/uL (134-434); RBC 4.52 M/mm3 (4.00-5.60); RDW 20.1 % (11.9-15.9)
[2021-03-07] MEDS ORDERED: PT OWN MED DRAWER 7, Y5N ONE (08:42)
[2021-03-07] MEDS: RIFAXIMIN 550 MG TABLET (UD) PO SCH ×2 (09:41→21:52)
[2021-03-07] MEDS: SACUBITRIL/VALSARTAN 24 MG-26 MG TABLET PO SCH ×2 (09:41→21:52)
[2021-03-07] MEDS: ASPIRIN 81 MG CHEWABLE TABLETS PO SCH (09:41)
[2021-03-07] MEDS: DONEPEZIL HCL 10 MG TABLET (FP) PO SCH ×2 (09:42→21:52)
[2021-03-07] MEDS: CARVEDILOL 6.25 MG TABLET (FP) PO SCH ×2 (09:42→21:52)
[2021-03-07] MEDS ORDERED: MAGNESIUM SULF 50% (8.12 MEQ/2 ML-1 GM VIAL) IVPB ONE (14:50)
[2021-03-07] MEDS ORDERED: POTASSIUM CHLORIDE ORAL LIQUID 20 MEQ/15 ML PO ONE (14:51)
[2021-03-07] MEDS ORDERED: POTASSIUM CHLORIDE TABS 20 MEQ TABLET.ER (FP) PO ONE (14:53)
[2021-03-07] MEDS: ATORVASTATIN CA 20 MG TABLET (FP) PO SCH (21:51)
[2021-03-08] MEDS: FUROSEMIDE 40 MG/4 ML INJECTABLE VIAL IVPUSH SCH ×2 (05:33→15:15)
[2021-03-08 06:43] LABS: BASO % 0.3 % (0-2.0); MCHC 32.4 g/dl (32.0-35.9); MEAN CELL VOLUME 80.3 fl (80-96); MEAN PLT VOLUME 8.8 fl (7.5-11.1); MONO % 14.3 % (3.8-10.2); NEUT % 71.4 % (42.8-82.8); PLATELET COUNT 174 10^3/uL (134-434); RBC 4.24 M/mm3 (4.00-5.60); RDW 20.3 % (11.9-15.9)
[2021-03-08 06:58] LABS: ALBUMIN 2.4 g/dl (3.4-5.0); BLOOD UREA NITROGEN 32.6 mg/dL (7-18); CALCIUM 8.7 mg/dL (8.5-10.1); MAGNESIUM 2.1 mg/dL (1.8-2.4)
[2021-03-08 07:02] LABS: TOT PROT 6.8 g/dl (6.4-8.2)
[2021-03-08] MEDS: DONEPEZIL HCL 10 MG TABLET (FP) PO SCH ×2 (09:27→21:37)
[2021-03-08] MEDS: ASPIRIN 81 MG CHEWABLE TABLETS PO SCH (09:27)
[2021-03-08] MEDS: CARVEDILOL 6.25 MG TABLET (FP) PO SCH ×3 (09:27→22:15)
[2021-03-08] MEDS: METOLAZONE 5 MG TABLET PO SCH (09:27)
[2021-03-08] MEDS: RIFAXIMIN 550 MG TABLET (UD) PO SCH ×2 (10:13→21:37)
[2021-03-08] MEDS: SACUBITRIL/VALSARTAN 24 MG-26 MG TABLET PO SCH ×2 (10:13→21:47)
[2021-03-08] MEDS ORDERED: POTASSIUM CHLORIDE ORAL LIQUID 20 MEQ/15 ML PO ONE (11:40)
[2021-03-08] MEDS ORDERED: ALBUTEROL SO4 2.5/IPRATROPIUM 0.5 INH SOL 3 ML VIAL.NEB. NEB PRN (19:35)
[2021-03-08] MEDS: ATORVASTATIN CA 20 MG TABLET (FP) PO SCH (21:37)
[2021-03-09] MEDS: guaiFENesin 200 MG/10 ML 10 ML UNIT-DOSE CUPS PO PRN (00:47)
[2021-03-09] MEDS: FUROSEMIDE 40 MG/4 ML INJECTABLE VIAL IVPUSH SCH ×2 (05:38→15:00)
[2021-03-09] MEDS ORDERED: PT OWN MED DRAWER 7, Y5N ONE (06:28)
[2021-03-09] MEDS: CARVEDILOL 6.25 MG TABLET (FP) PO SCH ×2 (09:44→21:35)
[2021-03-09] MEDS: ASPIRIN 81 MG CHEWABLE TABLETS PO SCH (09:44)
[2021-03-09] MEDS: DONEPEZIL HCL 10 MG TABLET (FP) PO SCH ×2 (09:44→21:34)
[2021-03-09] MEDS: SACUBITRIL/VALSARTAN 24 MG-26 MG TABLET PO SCH ×2 (09:44→21:35)
[2021-03-09] MEDS: RIFAXIMIN 550 MG TABLET (UD) PO SCH ×2 (09:45→21:35)
[2021-03-09] MEDS: MAGNESIUM OXIDE 400 MG TABLET (FP) PO SCH ×2 (12:00→21:35)
[2021-03-09 13:41] LABS: BASO % 0.6 % (0-2.0); EOS % 0.9 % (0-4.5); HEMATOCRIT 37.2 % (35.4-49); HEMOGLOBIN 11.8 GM/dL (11.7-16.9); LYMPH % 16.1 % (8-40); MCH 25.6 pg (25.7-33.7); MCHC 31.8 g/dl (32.0-35.9); MEAN CELL VOLUME 80.6 fl (80-96); MEAN PLT VOLUME 8.9 fl (7.5-11.1); MONO % 16.4 % (3.8-10.2); PLATELET COUNT 195 10^3/uL (134-434); RBC 4.61 M/mm3 (4.00-5.60); RDW 20.3 % (11.9-15.9); WHITE BLOOD COUNT 6.6 K/mm3 (4.0-10.0)
[2021-03-09 13:47] LABS: INR 1.58 (0.83-1.09); PROTHROMBIN TIME (PATIENT) 18.9 SEC (9.7-13.0)
[2021-03-09 13:49] LABS: ACTIVATED PTT 28.2 SECONDS (25.2-36.5)
[2021-03-09 13:56] LABS: CALCIUM 8.8 mg/dL (8.5-10.1)
[2021-03-09 13:57] LABS: ALBUMIN 2.6 g/dl (3.4-5.0); BLOOD UREA NITROGEN 30.1 mg/dL (7-18); MAGNESIUM 1.9 mg/dL (1.8-2.4)
[2021-03-09 14:02] LABS: BILIRUBIN,TOTAL 1.8 mg/dL (0.2-1); TOT PROT 7.3 g/dl (6.4-8.2)
[2021-03-09 14:09] LABS: CREATININE 0.9 mg/dL (0.55-1.3)
[2021-03-09] MEDS ORDERED: KCL 10 MEQ IVPB 10 MEQ/100 ML INFUS.BAG IVPB SCH (16:30)
[2021-03-09] MEDS ORDERED: POTASSIUM CHLORIDE TABS 20 MEQ TABLET.ER (FP) PO ONE (17:27)
[2021-03-09] MEDS: ATORVASTATIN CA 20 MG TABLET (FP) PO SCH (21:35)
[2021-03-09] MEDS: HEPARIN NA (PORCINE) 5,000 UNITS/ML 1ML VIAL SQ SCH (21:47)
[2021-03-10] MEDS: FUROSEMIDE 40 MG/4 ML INJECTABLE VIAL IVPUSH SCH ×2 (06:40→15:00)
[2021-03-10] MEDS: MAGNESIUM OXIDE 400 MG TABLET (FP) PO SCH ×2 (09:16→21:42)
[2021-03-10] MEDS: METOLAZONE 5 MG TABLET PO SCH (09:16)
[2021-03-10] MEDS: DONEPEZIL HCL 10 MG TABLET (FP) PO SCH ×2 (09:16→21:41)
[2021-03-10] MEDS: HEPARIN NA (PORCINE) 5,000 UNITS/ML 1ML VIAL SQ SCH ×2 (09:17→21:40)
[2021-03-10] MEDS: CARVEDILOL 6.25 MG TABLET (FP) PO SCH ×2 (09:17→21:34)
[2021-03-10] MEDS: SACUBITRIL/VALSARTAN 24 MG-26 MG TABLET PO SCH ×2 (09:17→21:42)
[2021-03-10] MEDS: RIFAXIMIN 550 MG TABLET (UD) PO SCH ×2 (09:17→21:42)
[2021-03-10] MEDS: ASPIRIN 81 MG CHEWABLE TABLETS PO SCH (09:17)
[2021-03-10] MEDS: ATORVASTATIN CA 20 MG TABLET (FP) PO SCH (21:42)
[2021-03-11] MEDS: FUROSEMIDE 40 MG/4 ML INJECTABLE VIAL IVPUSH SCH ×2 (06:01→13:44)
[2021-03-11 07:30] LABS: BASO % 0.3 % (0-2.0); EOS % 0.7 % (0-4.5); MCH 26.3 pg (25.7-33.7); MCHC 32.5 g/dl (32.0-35.9); MEAN CELL VOLUME 81.1 fl (80-96); MEAN PLT VOLUME 8.9 fl (7.5-11.1); MONO % 13.7 % (3.8-10.2); NEUT % 72.3 % (42.8-82.8); PLATELET COUNT 172 10^3/uL (134-434); RBC 4.19 M/mm3 (4.00-5.60); RDW 20.7 % (11.9-15.9); WHITE BLOOD COUNT 7.4 K/mm3 (4.0-10.0)
[2021-03-11 07:50] LABS: ALBUMIN 2.4 g/dl (3.4-5.0); BLOOD UREA NITROGEN 28.6 mg/dL (7-18); CALCIUM 8.4 mg/dL (8.5-10.1); MAGNESIUM 2.1 mg/dL (1.8-2.4)
[2021-03-11] MEDS ORDERED: POTASSIUM CHLORIDE TABS 20 MEQ TABLET.ER (FP) PO ONE (08:15)
[2021-03-11] MEDS ORDERED: CARVEDILOL 6.25 MG TABLET (FP) PO SCH (09:41)
[2021-03-11] MEDS: DONEPEZIL HCL 10 MG TABLET (FP) PO SCH ×2 (09:49→21:02)
[2021-03-11] MEDS: ASPIRIN 81 MG CHEWABLE TABLETS PO SCH (09:49)
[2021-03-11] MEDS: SACUBITRIL/VALSARTAN 24 MG-26 MG TABLET PO SCH ×2 (09:50→21:02)
[2021-03-11] MEDS: HEPARIN NA (PORCINE) 5,000 UNITS/ML 1ML VIAL SQ SCH ×2 (09:50→21:03)
[2021-03-11] MEDS: RIFAXIMIN 550 MG TABLET (UD) PO SCH ×2 (09:50→21:02)
[2021-03-11] MEDS: MAGNESIUM OXIDE 400 MG TABLET (FP) PO SCH ×2 (09:50→21:02)
[2021-03-11 09:51] LABS: ANISOCYTOSIS 0; MACROCYTOSIS 0; PLATELET ESTIMATE NORMAL
[2021-03-11] MEDS: CARVEDILOL 3.125 MG TABLET (FP) PO SCH (21:03)
[2021-03-11] MEDS: ATORVASTATIN CA 20 MG TABLET (FP) PO SCH (21:03)
[2021-03-11 23:26] VITALS: BMI 28.8
[2021-03-12] MEDS: FUROSEMIDE 40 MG/4 ML INJECTABLE VIAL IVPUSH SCH ×2 (06:11→14:05)
[2021-03-12 07:35] LABS: BASO % 0.6 % (0-2.0); EOS % 1.2 % (0-4.5); LYMPH % 16.6 % (8-40); MCH 25.8 pg (25.7-33.7); MCHC 31.6 g/dl (32.0-35.9); MEAN CELL VOLUME 81.6 fl (80-96); MEAN PLT VOLUME 9.1 fl (7.5-11.1); MONO % 15.3 % (3.8-10.2); NEUT % 66.3 % (42.8-82.8); PLATELET COUNT 173 10^3/uL (134-434); RBC 4.28 M/mm3 (4.00-5.60); RDW 20.7 % (11.9-15.9); WHITE BLOOD COUNT 6.8 K/mm3 (4.0-10.0)
[2021-03-12 08:11] LABS: ALBUMIN 2.5 g/dl (3.4-5.0); BLOOD UREA NITROGEN 27.3 mg/dL (7-18); CALCIUM 8.6 mg/dL (8.5-10.1); MAGNESIUM 2.1 mg/dL (1.8-2.4)
[2021-03-12 08:14] LABS: CREATININE 1.1 mg/dL (0.55-1.3)
[2021-03-12 08:15] LABS: BILIRUBIN,TOTAL 1.7 mg/dL (0.2-1); TOT PROT 7.2 g/dl (6.4-8.2)
[2021-03-12] MEDS ORDERED: POTASSIUM CHLORIDE TABS 20 MEQ TABLET.ER (FP) PO ONE (09:09)
[2021-03-12] MEDS: CARVEDILOL 3.125 MG TABLET (FP) PO SCH ×2 (09:25→22:22)
[2021-03-12] MEDS: RIFAXIMIN 550 MG TABLET (UD) PO SCH ×2 (09:25→22:22)
[2021-03-12] MEDS: ASPIRIN 81 MG CHEWABLE TABLETS PO SCH (09:25)
[2021-03-12] MEDS: SACUBITRIL/VALSARTAN 24 MG-26 MG TABLET PO SCH ×2 (09:25→22:22)
[2021-03-12] MEDS: DONEPEZIL HCL 10 MG TABLET (FP) PO SCH ×2 (09:25→22:22)
[2021-03-12] MEDS: HEPARIN NA (PORCINE) 5,000 UNITS/ML 1ML VIAL SQ SCH ×2 (09:25→22:22)
[2021-03-12] MEDS: MAGNESIUM OXIDE 400 MG TABLET (FP) PO SCH ×2 (09:25→22:22)
[2021-03-12] MEDS: SPIRONOLACTONE 25 MG TABLET PO SCH ×2 (11:19→22:22)
[2021-03-12] MEDS: METOLAZONE 5 MG TABLET PO SCH ×2 (13:59→14:05)
[2021-03-12] MEDS: ATORVASTATIN CA 20 MG TABLET (FP) PO SCH (22:22)
[2021-03-12] MEDS: guaiFENesin 200 MG/10 ML 10 ML UNIT-DOSE CUPS PO PRN (22:22)
[2021-03-13] MEDS: FUROSEMIDE 40 MG/4 ML INJECTABLE VIAL IVPUSH SCH ×2 (07:01→13:55)
[2021-03-13 07:34] LABS: BASO % 0.5 % (0-2.0); EOS % 0.5 % (0-4.5); HEMATOCRIT 35.5 % (35.4-49); HEMOGLOBIN 11.3 GM/dL (11.7-16.9); LYMPH % 14.6 % (8-40); MCHC 31.8 g/dl (32.0-35.9); MEAN CELL VOLUME 81.9 fl (80-96); MONO % 10.9 % (3.8-10.2); NEUT % 73.5 % (42.8-82.8); PLATELET COUNT 172 10^3/uL (134-434); RBC 4.33 M/mm3 (4.00-5.60); RDW 20.9 % (11.9-15.9); WHITE BLOOD COUNT 7.4 K/mm3 (4.0-10.0)
[2021-03-13 07:44] LABS: CALCIUM 8.6 mg/dL (8.5-10.1)
[2021-03-13 07:45] LABS: ALBUMIN 2.6 g/dl (3.4-5.0); BLOOD UREA NITROGEN 27.7 mg/dL (7-18)
[2021-03-13 07:48] LABS: CREATININE 0.9 mg/dL (0.55-1.3)
[2021-03-13 07:50] LABS: BILIRUBIN,TOTAL 2.4 mg/dL (0.2-1); TOT PROT 7.5 g/dl (6.4-8.2)
[2021-03-13] MEDS: CARVEDILOL 3.125 MG TABLET (FP) PO SCH ×2 (10:22→21:03)
[2021-03-13] MEDS: RIFAXIMIN 550 MG TABLET (UD) PO SCH ×2 (10:22→21:03)
[2021-03-13] MEDS: ASPIRIN 81 MG CHEWABLE TABLETS PO SCH (10:22)
[2021-03-13] MEDS: HEPARIN NA (PORCINE) 5,000 UNITS/ML 1ML VIAL SQ SCH ×2 (10:22→21:00)
[2021-03-13] MEDS: MAGNESIUM OXIDE 400 MG TABLET (FP) PO SCH ×2 (10:22→21:03)
[2021-03-13] MEDS: DONEPEZIL HCL 10 MG TABLET (FP) PO SCH ×2 (10:23→21:03)
[2021-03-13] MEDS: SPIRONOLACTONE 25 MG TABLET PO SCH ×2 (10:23→21:03)
[2021-03-13] MEDS: SACUBITRIL/VALSARTAN 24 MG-26 MG TABLET PO SCH ×2 (10:23→21:03)
[2021-03-13] MEDS ORDERED: POTASSIUM CHLORIDE TABS 20 MEQ TABLET.ER (FP) PO ONE (17:12)
[2021-03-13] MEDS: ATORVASTATIN CA 20 MG TABLET (FP) PO SCH (21:03)
[2021-03-14] MEDS: FUROSEMIDE 40 MG/4 ML INJECTABLE VIAL IVPUSH SCH ×2 (05:59→13:57)
[2021-03-14] MEDS ORDERED: PCA PUMP NR ONE (06:33)
[2021-03-14] MEDS ORDERED: PT OWN MED DRAWER 7, Y5N ONE (09:25)
[2021-03-14] MEDS: RIFAXIMIN 550 MG TABLET (UD) PO SCH ×2 (09:51→21:06)
[2021-03-14] MEDS: DONEPEZIL HCL 10 MG TABLET (FP) PO SCH ×2 (09:51→21:06)
[2021-03-14] MEDS: MAGNESIUM OXIDE 400 MG TABLET (FP) PO SCH ×2 (09:51→21:06)
[2021-03-14] MEDS: SPIRONOLACTONE 25 MG TABLET PO SCH ×2 (09:51→21:06)
[2021-03-14] MEDS: ASPIRIN 81 MG CHEWABLE TABLETS PO SCH (09:51)
[2021-03-14] MEDS: SACUBITRIL/VALSARTAN 24 MG-26 MG TABLET PO SCH ×2 (09:51→21:06)
[2021-03-14] MEDS: METOLAZONE 5 MG TABLET PO SCH (09:52)
[2021-03-14] MEDS: HEPARIN NA (PORCINE) 5,000 UNITS/ML 1ML VIAL SQ SCH ×2 (09:52→21:06)
[2021-03-14 11:41] LABS: EOS % 0.6 % (0-4.5); HEMATOCRIT 37.7 % (35.4-49); LYMPH % 16.8 % (8-40); MCHC 31.7 g/dl (32.0-35.9); MEAN CELL VOLUME 82.1 fl (80-96); MEAN PLT VOLUME 9.4 fl (7.5-11.1); MONO % 13.1 % (3.8-10.2); NEUT % 68.5 % (42.8-82.8); PLATELET COUNT 177 10^3/uL (134-434); RBC 4.59 M/mm3 (4.00-5.60); RDW 20.7 % (11.9-15.9)
[2021-03-14 12:01] LABS: ALBUMIN 2.6 g/dl (3.4-5.0); BLOOD UREA NITROGEN 32.1 mg/dL (7-18); CALCIUM 8.7 mg/dL (8.5-10.1); MAGNESIUM 2.2 mg/dL (1.8-2.4)
[2021-03-14 12:06] LABS: BILIRUBIN,TOTAL 1.9 mg/dL (0.2-1); TOT PROT 7.7 g/dl (6.4-8.2)
[2021-03-14] MEDS: CARVEDILOL 3.125 MG TABLET (FP) PO SCH ×2 (12:08→21:06)
[2021-03-14 12:20] LABS: ANISOCYTOSIS 1+; MACROCYTOSIS 1+; PLATELET ESTIMATE NORMAL; TARGET CELLS 2+
[2021-03-14] MEDS: ATORVASTATIN CA 20 MG TABLET (FP) PO SCH (21:06)
[2021-03-15] MEDS: FUROSEMIDE 40 MG/4 ML INJECTABLE VIAL IVPUSH SCH ×2 (06:12→13:52)
[2021-03-15] MEDS ORDERED: PT OWN MED DRAWER 7, Y5N ONE (09:15)
[2021-03-15] MEDS: SPIRONOLACTONE 25 MG TABLET PO SCH ×2 (09:44→21:28)
[2021-03-15] MEDS: RIFAXIMIN 550 MG TABLET (UD) PO SCH ×2 (09:44→21:28)
[2021-03-15] MEDS: ASPIRIN 81 MG CHEWABLE TABLETS PO SCH (09:44)
[2021-03-15] MEDS: DONEPEZIL HCL 10 MG TABLET (FP) PO SCH ×2 (09:45→21:28)
[2021-03-15] MEDS: HEPARIN NA (PORCINE) 5,000 UNITS/ML 1ML VIAL SQ SCH ×2 (09:45→21:28)
[2021-03-15] MEDS: MAGNESIUM OXIDE 400 MG TABLET (FP) PO SCH ×2 (09:45→21:28)
[2021-03-15] MEDS: SACUBITRIL/VALSARTAN 24 MG-26 MG TABLET PO SCH ×2 (09:45→21:28)
[2021-03-15] MEDS: CARVEDILOL 3.125 MG TABLET (FP) PO SCH ×2 (09:46→21:28)
[2021-03-15 13:49] LABS: BASO % 0.7 % (0-2.0); EOS % 0.7 % (0-4.5); HEMATOCRIT 36.2 % (35.4-49); HEMOGLOBIN 11.9 GM/dL (11.7-16.9); LYMPH % 15.5 % (8-40); MCH 26.3 pg (25.7-33.7); MCHC 32.8 g/dl (32.0-35.9); MEAN CELL VOLUME 80.2 fl (80-96); MEAN PLT VOLUME 9.2 fl (7.5-11.1); MONO % 14.4 % (3.8-10.2); NEUT % 68.7 % (42.8-82.8); PLATELET COUNT 177 10^3/uL (134-434); RBC 4.51 M/mm3 (4.00-5.60); RDW 20.4 % (11.9-15.9); WHITE BLOOD COUNT 6.1 K/mm3 (4.0-10.0)
[2021-03-15 14:09] LABS: ALBUMIN 2.7 g/dl (3.4-5.0); BLOOD UREA NITROGEN 29.6 mg/dL (7-18); MAGNESIUM 1.9 mg/dL (1.8-2.4)
[2021-03-15 14:12] LABS: CREATININE 0.9 mg/dL (0.55-1.3)
[2021-03-15 14:13] LABS: TOT PROT 7.8 g/dl (6.4-8.2)
[2021-03-15] MEDS: AMINO ACIDS/PROTEIN HYDROLYS 30 ML LIQUID.PKT PO SCH (17:22)
[2021-03-15] MEDS: ATORVASTATIN CA 20 MG TABLET (FP) PO SCH (21:28)
[2021-03-16] MEDS: FUROSEMIDE 40 MG/4 ML INJECTABLE VIAL IVPUSH SCH ×2 (06:34→16:21)
[2021-03-16 06:41] LABS: CALCIUM 8.6 mg/dL (8.5-10.1)
[2021-03-16 06:42] LABS: ALBUMIN 2.6 g/dl (3.4-5.0); BLOOD UREA NITROGEN 29.9 mg/dL (7-18); MAGNESIUM 1.8 mg/dL (1.8-2.4)
[2021-03-16 06:44] LABS: BASO % 0.6 % (0-2.0); EOS % 0.6 % (0-4.5); HEMOGLOBIN 11.4 GM/dL (11.7-16.9); LYMPH % 16.9 % (8-40); MCH 25.8 pg (25.7-33.7); MCHC 31.6 g/dl (32.0-35.9); MEAN CELL VOLUME 81.5 fl (80-96); MEAN PLT VOLUME 9.2 fl (7.5-11.1); MONO % 12.8 % (3.8-10.2); NEUT % 69.1 % (42.8-82.8); PLATELET COUNT 186 10^3/uL (134-434); RBC 4.42 M/mm3 (4.00-5.60); RDW 20.7 % (11.9-15.9); WHITE BLOOD COUNT 9.1 K/mm3 (4.0-10.0)
[2021-03-16 06:47] LABS: BILIRUBIN,TOTAL 2.4 mg/dL (0.2-1); TOT PROT 7.4 g/dl (6.4-8.2)
[2021-03-16] MEDS: SPIRONOLACTONE 25 MG TABLET PO SCH ×2 (09:34→21:25)
[2021-03-16] MEDS: RIFAXIMIN 550 MG TABLET (UD) PO SCH ×2 (09:34→21:26)
[2021-03-16] MEDS: MULTIVITAMINS (DAILY MVI) TABLET (FP) PO SCH (09:34)
[2021-03-16] MEDS: ASPIRIN 81 MG CHEWABLE TABLETS PO SCH (09:34)
[2021-03-16] MEDS: CARVEDILOL 3.125 MG TABLET (FP) PO SCH ×2 (09:34→21:19)
[2021-03-16] MEDS: MAGNESIUM OXIDE 400 MG TABLET (FP) PO SCH ×2 (09:34→21:26)
[2021-03-16] MEDS: DONEPEZIL HCL 10 MG TABLET (FP) PO SCH ×2 (09:34→21:25)
[2021-03-16] MEDS: SACUBITRIL/VALSARTAN 24 MG-26 MG TABLET PO SCH ×2 (09:34→21:25)
[2021-03-16] MEDS: HEPARIN NA (PORCINE) 5,000 UNITS/ML 1ML VIAL SQ SCH (09:35)
[2021-03-16] MEDS: AMINO ACIDS/PROTEIN HYDROLYS 30 ML LIQUID.PKT PO SCH ×2 (09:35→16:57)
[2021-03-16] MEDS: METOLAZONE 5 MG TABLET PO SCH (09:36)
[2021-03-16] MEDS ORDERED: SODIUM CHLORIDE 250 ML IV STA (15:39)
[2021-03-16] MEDS ORDERED: FUROSEMIDE 40 MG/4 ML INJECTABLE VIAL IVPUSH SCH (15:39)
[2021-03-16] MEDS: ATORVASTATIN CA 20 MG TABLET (FP) PO SCH (21:25)
[2021-03-17 07:29] LABS: BASO % 0.7 % (0-2.0); EOS % 0.4 % (0-4.5); HEMATOCRIT 36.6 % (35.4-49); LYMPH % 16.8 % (8-40); MCH 26.5 pg (25.7-33.7); MCHC 32.7 g/dl (32.0-35.9); MONO % 14.4 % (3.8-10.2); NEUT % 67.7 % (42.8-82.8); PLATELET COUNT 185 10^3/uL (134-434); RBC 4.51 M/mm3 (4.00-5.60); RDW 20.7 % (11.9-15.9); WHITE BLOOD COUNT 8.2 K/mm3 (4.0-10.0)
[2021-03-17 07:58] LABS: CALCIUM 8.6 mg/dL (8.5-10.1)
[2021-03-17 07:59] LABS: ALBUMIN 2.6 g/dl (3.4-5.0); BLOOD UREA NITROGEN 38.2 mg/dL (7-18); MAGNESIUM 2.1 mg/dL (1.8-2.4)
[2021-03-17 08:02] LABS: CREATININE 1.1 mg/dL (0.55-1.3)
[2021-03-17 08:04] LABS: BILIRUBIN,TOTAL 2.1 mg/dL (0.2-1); TOT PROT 7.4 g/dl (6.4-8.2)
[2021-03-17] MEDS: AMINO ACIDS/PROTEIN HYDROLYS 30 ML LIQUID.PKT PO SCH ×2 (09:11→18:41)
[2021-03-17] MEDS: SPIRONOLACTONE 25 MG TABLET PO SCH ×2 (10:11→21:54)
[2021-03-17] MEDS: SACUBITRIL/VALSARTAN 24 MG-26 MG TABLET PO SCH ×2 (10:11→21:55)
[2021-03-17] MEDS: MULTIVITAMINS (DAILY MVI) TABLET (FP) PO SCH (10:11)
[2021-03-17] MEDS: MAGNESIUM OXIDE 400 MG TABLET (FP) PO SCH ×2 (10:11→21:55)
[2021-03-17] MEDS: ASPIRIN 81 MG CHEWABLE TABLETS PO SCH (10:11)
[2021-03-17] MEDS: DONEPEZIL HCL 10 MG TABLET (FP) PO SCH ×2 (10:11→21:56)
[2021-03-17] MEDS: RIFAXIMIN 550 MG TABLET (UD) PO SCH ×2 (10:11→21:55)
[2021-03-17] MEDS: CARVEDILOL 3.125 MG TABLET (FP) PO SCH ×2 (10:11→21:56)
[2021-03-17] MEDS: FUROSEMIDE 40 MG/4 ML INJECTABLE VIAL IVPUSH SCH (15:31)
[2021-03-17] MEDS: ATORVASTATIN CA 20 MG TABLET (FP) PO SCH (21:55)
[2021-03-18] MEDS: FUROSEMIDE 40 MG/4 ML INJECTABLE VIAL IVPUSH SCH ×2 (05:59→13:29)
[2021-03-18 07:04] LABS: BASO % 0.5 % (0-2.0); EOS % 0.6 % (0-4.5); HEMATOCRIT 37.8 % (35.4-49); HEMOGLOBIN 12.2 GM/dL (11.7-16.9); LYMPH % 8.9 % (8-40); MCH 26.3 pg (25.7-33.7); MCHC 32.2 g/dl (32.0-35.9); MEAN CELL VOLUME 81.8 fl (80-96); MEAN PLT VOLUME 9.2 fl (7.5-11.1); MONO % 9.3 % (3.8-10.2); NEUT % 80.7 % (42.8-82.8); PLATELET COUNT 204 10^3/uL (134-434); RBC 4.62 M/mm3 (4.00-5.60); RDW 20.3 % (11.9-15.9); WHITE BLOOD COUNT 8.7 K/mm3 (4.0-10.0)
[2021-03-18 07:12] LABS: ALBUMIN 2.6 g/dl (3.4-5.0); BLOOD UREA NITROGEN 54.8 mg/dL (7-18); CALCIUM 8.5 mg/dL (8.5-10.1); MAGNESIUM 2.3 mg/dL (1.8-2.4)
[2021-03-18 07:15] LABS: CREATININE 1.4 mg/dL (0.55-1.3)
[2021-03-18 07:17] LABS: BILIRUBIN,TOTAL 1.6 mg/dL (0.2-1); TOT PROT 7.5 g/dl (6.4-8.2)
[2021-03-18] MEDS: AMINO ACIDS/PROTEIN HYDROLYS 30 ML LIQUID.PKT PO SCH ×2 (07:51→16:35)
[2021-03-18] MEDS: SACUBITRIL/VALSARTAN 24 MG-26 MG TABLET PO SCH ×2 (09:15→22:50)
[2021-03-18] MEDS: RIFAXIMIN 550 MG TABLET (UD) PO SCH ×2 (09:15→22:50)
[2021-03-18] MEDS: ASPIRIN 81 MG CHEWABLE TABLETS PO SCH (09:15)
[2021-03-18] MEDS: MULTIVITAMINS (DAILY MVI) TABLET (FP) PO SCH (09:15)
[2021-03-18] MEDS: SPIRONOLACTONE 25 MG TABLET PO SCH ×2 (09:15→22:50)
[2021-03-18] MEDS: MAGNESIUM OXIDE 400 MG TABLET (FP) PO SCH ×2 (09:15→22:50)
[2021-03-18] MEDS: CARVEDILOL 3.125 MG TABLET (FP) PO SCH ×2 (09:15→22:40)
[2021-03-18] MEDS: DONEPEZIL HCL 10 MG TABLET (FP) PO SCH ×2 (09:19→22:50)
[2021-03-18 11:21] LABS: ANISOCYTOSIS 1+; MACROCYTOSIS 0; PLATELET ESTIMATE NORMAL; TARGET CELLS 1+
[2021-03-18] MEDS ORDERED: MIDODRINE HCL 5 MG TABLET PO ONE (15:15)
[2021-03-18] MEDS: ATORVASTATIN CA 20 MG TABLET (FP) PO SCH (22:50)
[2021-03-19 07:05] LABS: BASO % 0.9 % (0-2.0); HEMATOCRIT 36.4 % (35.4-49); HEMOGLOBIN 11.7 GM/dL (11.7-16.9); LYMPH % 17.1 % (8-40); MCH 26.3 pg (25.7-33.7); MCHC 32.2 g/dl (32.0-35.9); MEAN CELL VOLUME 81.6 fl (80-96); MEAN PLT VOLUME 8.6 fl (7.5-11.1); MONO % 14.1 % (3.8-10.2); NEUT % 66.9 % (42.8-82.8); PLATELET COUNT 201 10^3/uL (134-434); RBC 4.46 M/mm3 (4.00-5.60); RDW 21.3 % (11.9-15.9); WHITE BLOOD COUNT 8.2 K/mm3 (4.0-10.0)
[2021-03-19 07:28] LABS: BLOOD UREA NITROGEN 48.8 mg/dL (7-18)
[2021-03-19 07:31] LABS: ALBUMIN 2.4 g/dl (3.4-5.0); CALCIUM 8.3 mg/dL (8.5-10.1); CREATININE 1.2 mg/dL (0.55-1.3)
[2021-03-19 07:32] LABS: MAGNESIUM 2.5 mg/dL (1.8-2.4)
[2021-03-19 07:33] LABS: BILIRUBIN,TOTAL 1.6 mg/dL (0.2-1)
[2021-03-19 07:36] LABS: TOT PROT 7.2 g/dl (6.4-8.2)
[2021-03-19] MEDS: AMINO ACIDS/PROTEIN HYDROLYS 30 ML LIQUID.PKT PO SCH ×2 (09:17→16:36)
[2021-03-19] MEDS: DONEPEZIL HCL 10 MG TABLET (FP) PO SCH ×2 (09:18→22:21)
[2021-03-19] MEDS: MULTIVITAMINS (DAILY MVI) TABLET (FP) PO SCH (09:18)
[2021-03-19] MEDS: ASPIRIN 81 MG CHEWABLE TABLETS PO SCH (09:18)
[2021-03-19] MEDS: SACUBITRIL/VALSARTAN 24 MG-26 MG TABLET PO SCH ×2 (09:18→22:21)
[2021-03-19] MEDS: MAGNESIUM OXIDE 400 MG TABLET (FP) PO SCH ×2 (09:18→22:21)
[2021-03-19] MEDS: CARVEDILOL 3.125 MG TABLET (FP) PO SCH ×2 (09:18→22:21)
[2021-03-19] MEDS: RIFAXIMIN 550 MG TABLET (UD) PO SCH ×2 (09:19→22:21)
[2021-03-19] MEDS: FUROSEMIDE 40 MG/4 ML INJECTABLE VIAL IVPUSH SCH ×2 (09:31→14:51)
[2021-03-19 11:24] LABS: ANISOCYTOSIS 1+; MACROCYTOSIS 0; OVALOCYTE 1+; PLATELET ESTIMATE NORMAL; TARGET CELLS 1+; TEAR DROP CELLS 1+
[2021-03-19] MEDS: METOLAZONE 5 MG TABLET PO SCH (12:31)
[2021-03-19] MEDS: ATORVASTATIN CA 20 MG TABLET (FP) PO SCH (22:21)
[2021-03-20] MEDS: FUROSEMIDE 40 MG/4 ML INJECTABLE VIAL IVPUSH SCH (06:45)
[2021-03-20 07:07] LABS: BASO % 0.7 % (0-2.0); EOS % 1.5 % (0-4.5); HEMATOCRIT 35.3 % (35.4-49); HEMOGLOBIN 11.2 GM/dL (11.7-16.9); LYMPH % 18.1 % (8-40); MCH 26.1 pg (25.7-33.7); MCHC 31.8 g/dl (32.0-35.9); MEAN PLT VOLUME 8.1 fl (7.5-11.1); NEUT % 64.7 % (42.8-82.8); PLATELET COUNT 195 10^3/uL (134-434); RDW 20.8 % (11.9-15.9); WHITE BLOOD COUNT 8.6 K/mm3 (4.0-10.0)
[2021-03-20 07:30] LABS: CALCIUM 8.5 mg/dL (8.5-10.1)
[2021-03-20 07:31] LABS: ALBUMIN 2.6 g/dl (3.4-5.0); BLOOD UREA NITROGEN 48.9 mg/dL (7-18); MAGNESIUM 2.7 mg/dL (1.8-2.4)
[2021-03-20 07:34] LABS: CREATININE 1.2 mg/dL (0.55-1.3)
[2021-03-20 07:35] LABS: BILIRUBIN,TOTAL 1.6 mg/dL (0.2-1); TOT PROT 7.5 g/dl (6.4-8.2)
[2021-03-20] MEDS: CARVEDILOL 3.125 MG TABLET (FP) PO SCH ×2 (09:28→22:24)
[2021-03-20] MEDS: SACUBITRIL/VALSARTAN 24 MG-26 MG TABLET PO SCH ×2 (09:28→22:24)
[2021-03-20] MEDS: AMINO ACIDS/PROTEIN HYDROLYS 30 ML LIQUID.PKT PO SCH ×2 (09:28→18:18)
[2021-03-20] MEDS: ASPIRIN 81 MG CHEWABLE TABLETS PO SCH (09:28)
[2021-03-20] MEDS: RIFAXIMIN 550 MG TABLET (UD) PO SCH ×2 (09:29→22:23)
[2021-03-20] MEDS: MULTIVITAMINS (DAILY MVI) TABLET (FP) PO SCH (09:29)
[2021-03-20] MEDS: DONEPEZIL HCL 10 MG TABLET (FP) PO SCH ×2 (09:29→22:23)
[2021-03-20] MEDS: MAGNESIUM OXIDE 400 MG TABLET (FP) PO SCH ×2 (09:29→22:23)
[2021-03-20] MEDS: METOLAZONE 5 MG TABLET PO SCH (09:29)
[2021-03-20] MEDS: FUROSEMIDE 20 MG TABLET (FP) PO SCH ×2 (09:59→15:50)
[2021-03-20] MEDS: ATORVASTATIN CA 20 MG TABLET (FP) PO SCH (22:23)
[2021-03-21 06:49] LABS: BASO % 0.9 % (0-2.0); HEMATOCRIT 38.4 % (35.4-49); HEMOGLOBIN 12.3 GM/dL (11.7-16.9); LYMPH % 23.7 % (8-40); MCH 26.3 pg (25.7-33.7); MCHC 32.1 g/dl (32.0-35.9); MEAN PLT VOLUME 8.6 fl (7.5-11.1); MONO % 14.3 % (3.8-10.2); NEUT % 59.1 % (42.8-82.8); PLATELET COUNT 224 10^3/uL (134-434); RBC 4.68 M/mm3 (4.00-5.60); WHITE BLOOD COUNT 7.8 K/mm3 (4.0-10.0)
[2021-03-21 07:00] LABS: ALBUMIN 2.7 g/dl (3.4-5.0); BLOOD UREA NITROGEN 44.5 mg/dL (7-18); MAGNESIUM 2.4 mg/dL (1.8-2.4)
[2021-03-21 07:03] LABS: CREATININE 1.3 mg/dL (0.55-1.3)
[2021-03-21 07:04] LABS: BILIRUBIN,TOTAL 1.3 mg/dL (0.2-1); TOT PROT 7.8 g/dl (6.4-8.2)
[2021-03-21] MEDS: FUROSEMIDE 20 MG TABLET (FP) PO SCH ×2 (07:41→13:43)
[2021-03-21] MEDS: ASPIRIN 81 MG CHEWABLE TABLETS PO SCH (09:25)
[2021-03-21] MEDS: DONEPEZIL HCL 10 MG TABLET (FP) PO SCH (09:25)
[2021-03-21] MEDS: CARVEDILOL 3.125 MG TABLET (FP) PO SCH (09:25)
[2021-03-21] MEDS: AMINO ACIDS/PROTEIN HYDROLYS 30 ML LIQUID.PKT PO SCH (09:25)
[2021-03-21] MEDS: MAGNESIUM OXIDE 400 MG TABLET (FP) PO SCH (09:26)
[2021-03-21] MEDS: SACUBITRIL/VALSARTAN 24 MG-26 MG TABLET PO SCH (09:27)
[2021-03-21] MEDS: METOLAZONE 5 MG TABLET PO SCH (09:27)
[2021-03-21] MEDS: MULTIVITAMINS (DAILY MVI) TABLET (FP) PO SCH (09:27)
[2021-03-21] MEDS: RIFAXIMIN 550 MG TABLET (UD) PO SCH (09:27)
[2021-03-21 17:26] VITALS: BP 90/61; PULSE 94; TEMP 98.7
== END 2021-03-21 17:30 | DRG 194 ==
LOC: JER 13:59 → JERBED 21:09 → J4W 22:48 → J2C 02-28 13:59 → J4W 02-28 14:00 → JICU 03-04 22:28 → J2W 03-07 21:39
PROVIDERS: ADMIT Hospitalist; ATTEND Nurse Practitioner Family
PROC: 4B02XTZ Measurement of Cardiac Defibrillator, External Approach (ICD-10-PCS; principal; 2021-02-24)
DX: I11.0 Hypertensive heart disease with heart failure (principal); G93.41 Metabolic encephalopathy; I47.2 Ventricular tachycardia; I50.43 Acute on chronic combined systolic (congestive) and diastolic (congestive) heart failure; F01.50 Vascular dementia, unspecified severity, without behavioral disturbance, psychotic disturbance, mood disturbance, and anxiety; N43.3 Hydrocele, unspecified; E78.5 Hyperlipidemia, unspecified; I25.10 Atherosclerotic heart disease of native coronary artery without angina pectoris; R41.82 Altered mental status, unspecified; E87.5 Hyperkalemia; Z95.810 Presence of automatic (implantable) cardiac defibrillator; I25.5 Ischemic cardiomyopathy; E11.9 Type 2 diabetes mellitus without complications
CPT/HCPCS: 36415; 36600; 70450-TC; 71045-TC-FY; 74230-TC-FY; 76870-TC; 80053; 81003; 82140; 82803; 82962; 83605; 83735; 83880; 84100; 84484; 85025; 85610; 85730; 87086; 92611-GN; 93005; 93010; 93306-TC; 94640; 94660; 97116-GP; 97162-GP; 99285-25; C9803; J0131; J1644; U0003; U0005

== ENCOUNTER 2022-07-14 11:32 | Inpatient (IN) | payer OTHER ==
[2022-07-14 11:57] VITALS: BMI 24.9
[2022-07-14 14:47] LABS: BASO % 0.6 % (0-2.0); EOS % 2.7 % (0-4.5); HEMATOCRIT 39.9 % (35.4-49); LYMPH % 19.4 % (8-40); MCH 29.6 pg (25.7-33.7); MCHC 32.5 g/dl (32.0-35.9); MEAN CELL VOLUME 91.2 fl (80-96); MEAN PLT VOLUME 9.7 fl (7.5-11.1); MONO % 15.6 % (3.8-10.2); NEUT % 61.7 % (42.8-82.8); PLATELET COUNT 204 10^3/uL (134-434); RBC 4.38 M/mm3 (4.00-5.60); RDW 13.7 % (11.9-15.9); WHITE BLOOD COUNT 8.6 K/mm3 (4.0-10.0)
[2022-07-14 14:54] LABS: INR 1.25 (0.83-1.09); PROTHROMBIN TIME (PATIENT) 14.4 SEC (9.7-13.0)
[2022-07-14 14:56] LABS: ACTIVATED PTT 31.1 SECONDS (25.2-36.5)
[2022-07-14 15:14] LABS: CALCIUM 9.3 mg/dL (8.5-10.1)
[2022-07-14 15:15] LABS: ALBUMIN 3.2 g/dl (3.4-5.0)
[2022-07-14 15:18] LABS: CREATININE 1.2 mg/dL (0.55-1.3)
[2022-07-14 15:20] LABS: BILIRUBIN,TOTAL 0.5 mg/dL (0.2-1); TOT PROT 7.9 g/dl (6.4-8.2)
[2022-07-14 15:23] LABS: N-TERMINAL BNP 2497.8 pg/ml (5-125)
[2022-07-14] MEDS ORDERED: ACETAMINOPHEN 500 MG TABLET (FP) PO ONE (15:24)
[2022-07-14] MEDS ORDERED: ACETAMINOPHEN 325 MG TABLET (FP) ONE (16:03)
[2022-07-14] MEDS ORDERED: ACETAMINOPHEN 325 MG TABLET (FP) PO PRN (17:01)
[2022-07-14] MEDS ORDERED: HEPARIN NA (PORCINE) 5,000 UNITS/ML 1ML VIAL ONE (22:40)
[2022-07-14] MEDS ORDERED: CARVEDILOL 6.25 MG TABLET (FP) ONE (22:40)
[2022-07-14] MEDS ORDERED: ATORVASTATIN CA 20 MG TABLET (FP) ONE (22:40)
[2022-07-14] MEDS: HEPARIN NA (PORCINE) 5,000 UNITS/ML 1ML VIAL SQ SCH (23:09)
[2022-07-14] MEDS: ATORVASTATIN CA 20 MG TABLET (FP) PO SCH (23:09)
[2022-07-14] MEDS: CARVEDILOL 6.25 MG TABLET (FP) PO SCH (23:09)
[2022-07-14] MEDS: SACUBITRIL/VALSARTAN 24 MG-26 MG TABLET PO SCH (23:09)
[2022-07-15] MEDS ORDERED: FUROSEMIDE 40 MG TABLET (FP) ONE ×2 (05:17→15:26)
[2022-07-15] MEDS ORDERED: metFORMIN HCL 500 MG TABLET (FP) ONE ×3 (05:18→16:49)
[2022-07-15] MEDS ORDERED: sitaGLIPtin PHOSPHATE 50 MG TABLET ONE (05:18)
[2022-07-15] MEDS: FUROSEMIDE 40 MG TABLET (FP) PO SCH ×2 (05:26→15:30)
[2022-07-15] MEDS: metFORMIN HCL 500 MG TABLET (FP) PO SCH ×3 (06:25→16:50)
[2022-07-15] MEDS: sitaGLIPtin PHOSPHATE 50 MG TABLET PO SCH (06:25)
[2022-07-15] MEDS ORDERED: ASPIRIN 81 MG CHEWABLE TABLETS ONE (08:40)
[2022-07-15] MEDS ORDERED: CARVEDILOL 6.25 MG TABLET (FP) ONE (08:40)
[2022-07-15] MEDS ORDERED: CEFTRIAXONE 1 GM/50 ML BAG ONE (08:40)
[2022-07-15] MEDS ORDERED: HEPARIN NA (PORCINE) 5,000 UNITS/ML 1ML VIAL ONE ×2 (08:40→22:00)
[2022-07-15] MEDS: SACUBITRIL/VALSARTAN 24 MG-26 MG TABLET PO SCH ×2 (08:49→21:59)
[2022-07-15] MEDS: ASPIRIN 81 MG CHEWABLE TABLETS PO SCH (08:49)
[2022-07-15] MEDS: CARVEDILOL 6.25 MG TABLET (FP) PO SCH ×2 (08:50→21:58)
[2022-07-15] MEDS: HEPARIN NA (PORCINE) 5,000 UNITS/ML 1ML VIAL SQ SCH ×2 (08:50→22:05)
[2022-07-15] MEDS ORDERED: PATIENT'S OWN MEDICATION (NON-FORMULARY) (Dapagliflozin Propanediol 10 MG Tablet) PO SCH (10:00)
[2022-07-15 10:47] LABS: BASO % 0.5 % (0-2.0); EOS % 2.2 % (0-4.5); HEMATOCRIT 39.7 % (35.4-49); HEMOGLOBIN 13.3 GM/dL (11.7-16.9); LYMPH % 12.1 % (8-40); MCH 30.3 pg (25.7-33.7); MCHC 33.4 g/dl (32.0-35.9); MEAN CELL VOLUME 90.5 fl (80-96); MEAN PLT VOLUME 9.4 fl (7.5-11.1); NEUT % 77.2 % (42.8-82.8); PLATELET COUNT 218 10^3/uL (134-434); RBC 4.39 M/mm3 (4.00-5.60); RDW 13.5 % (11.9-15.9); WHITE BLOOD COUNT 9.5 K/mm3 (4.0-10.0)
[2022-07-15 11:00] LABS: ALBUMIN 3.1 g/dl (3.4-5.0); BLOOD UREA NITROGEN 21.8 mg/dL (7-18); CALCIUM 9.1 mg/dL (8.5-10.1); MAGNESIUM 2.2 mg/dL (1.8-2.4)
[2022-07-15 11:03] LABS: CREATININE 1.1 mg/dL (0.55-1.3)
[2022-07-15 11:04] LABS: BILIRUBIN,TOTAL 0.6 mg/dL (0.2-1)
[2022-07-15 11:05] LABS: TOT PROT 7.9 g/dl (6.4-8.2)
[2022-07-15] MEDS ORDERED: ATORVASTATIN CA 20 MG TABLET (FP) ONE (22:00)
[2022-07-15] MEDS ORDERED: DONEPEZIL HCL 5 MG TABLET (FP) ONE (22:00)
[2022-07-15] MEDS: ATORVASTATIN CA 20 MG TABLET (FP) PO SCH (22:05)
[2022-07-15] MEDS: DONEPEZIL HCL 10 MG TABLET (FP) PO SCH (22:05)
[2022-07-16] MEDS ORDERED: FUROSEMIDE 20 MG TABLET (FP) ONE (06:55)
[2022-07-16] MEDS: FUROSEMIDE 40 MG TABLET (FP) PO SCH ×2 (06:57→13:41)
[2022-07-16 07:38] LABS: BASO % 0.5 % (0-2.0); EOS % 2.2 % (0-4.5); HEMATOCRIT 37.6 % (35.4-49); HEMOGLOBIN 12.7 GM/dL (11.7-16.9); LYMPH % 18.2 % (8-40); MCH 30.8 pg (25.7-33.7); MCHC 33.8 g/dl (32.0-35.9); MEAN CELL VOLUME 90.9 fl (80-96); MEAN PLT VOLUME 8.8 fl (7.5-11.1); MONO % 12.3 % (3.8-10.2); NEUT % 66.8 % (42.8-82.8); PLATELET COUNT 222 10^3/uL (134-434); RBC 4.13 M/mm3 (4.00-5.60); RDW 13.5 % (11.9-15.9); WHITE BLOOD COUNT 8.3 K/mm3 (4.0-10.0)
[2022-07-16 07:49] LABS: BLOOD UREA NITROGEN 18.7 mg/dL (7-18); CALCIUM 8.7 mg/dL (8.5-10.1); MAGNESIUM 2.2 mg/dL (1.8-2.4)
[2022-07-16 07:52] LABS: PHOSPHOROUS 2.8 mg/dL (2.5-4.9)
[2022-07-16 07:53] LABS: CREATININE 0.9 mg/dL (0.55-1.3)
[2022-07-16 07:54] LABS: TOT PROT 7.5 g/dl (6.4-8.2)
[2022-07-16 08:12] LABS: BILIRUBIN,TOTAL 0.4 mg/dL (0.2-1)
[2022-07-16] MEDS ORDERED: ATORVASTATIN CA 40 MG TABLET (FP) PO SCH (10:07)
[2022-07-16] MEDS ORDERED: FUROSEMIDE 40 MG TABLET (FP) ONE (10:58)
[2022-07-16] MEDS ORDERED: CARVEDILOL 6.25 MG TABLET (FP) ONE (10:58)
[2022-07-16] MEDS ORDERED: ASPIRIN 81 MG CHEWABLE TABLETS ONE (10:58)
[2022-07-16] MEDS ORDERED: HEPARIN NA (PORCINE) 5,000 UNITS/ML 1ML VIAL ONE (10:59)
[2022-07-16] MEDS: ASPIRIN 81 MG CHEWABLE TABLETS PO SCH (11:03)
[2022-07-16] MEDS: HEPARIN NA (PORCINE) 5,000 UNITS/ML 1ML VIAL SQ SCH ×2 (11:03→21:18)
[2022-07-16] MEDS: CARVEDILOL 6.25 MG TABLET (FP) PO SCH ×2 (11:03→21:18)
[2022-07-16] MEDS: sitaGLIPtin PHOSPHATE 50 MG TABLET PO SCH (11:08)
[2022-07-16] MEDS: metFORMIN HCL 500 MG TABLET (FP) PO SCH (11:08)
[2022-07-16] MEDS: INSULIN SLIDING SCALE (NOVOLOG) 1 VIAL SQ SCH ×3 (12:00→21:22)
[2022-07-16] MEDS: SACUBITRIL/VALSARTAN 24 MG-26 MG TABLET PO SCH ×2 (13:43→21:18)
[2022-07-16 15:05] LABS: COCAINE, UR NEGATIVE (NEGATIVE); METHADONE, UR NEGATIVE (NEGATIVE); OPIATES, URI NEGATIVE (NEGATIVE); PHENCYCLIDINE,URINE NEGATIVE (NEGATIVE); URINE AMPHETAMINES NEGATIVE (NEGATIVE); URINE BARBITURATES NEGATIVE (NEGATIVE); URINE BENZODIAZEPINES NEGATIVE (NEGATIVE)
[2022-07-16] MEDS: DONEPEZIL HCL 10 MG TABLET (FP) PO SCH (21:18)
[2022-07-16] MEDS ORDERED: INSULIN (LEVEMIR) 100 UNITS/ML UNITS SQ SCH (22:00)
[2022-07-17] MEDS: FUROSEMIDE 40 MG TABLET (FP) PO SCH ×2 (06:34→13:42)
[2022-07-17] MEDS: INSULIN SLIDING SCALE (NOVOLOG) 1 VIAL SQ SCH ×2 (06:34→11:00)
[2022-07-17 06:55] VITALS: RESP 18
[2022-07-17 08:27] LABS: BASO % 0.7 % (0-2.0); EOS % 1.7 % (0-4.5); HEMOGLOBIN 12.5 GM/dL (11.7-16.9); LYMPH % 17.8 % (8-40); MCH 29.8 pg (25.7-33.7); MCHC 32.9 g/dl (32.0-35.9); MEAN CELL VOLUME 90.7 fl (80-96); MEAN PLT VOLUME 8.8 fl (7.5-11.1); MONO % 9.8 % (3.8-10.2); PLATELET COUNT 236 10^3/uL (134-434); RBC 4.19 M/mm3 (4.00-5.60); RDW 13.4 % (11.9-15.9); WHITE BLOOD COUNT 7.2 K/mm3 (4.0-10.0)
[2022-07-17 08:53] LABS: ALBUMIN 2.9 g/dl (3.4-5.0)
[2022-07-17 08:57] LABS: BLOOD UREA NITROGEN 13.3 mg/dL (7-18); CALCIUM 8.6 mg/dL (8.5-10.1)
[2022-07-17 09:00] LABS: CREATININE 0.8 mg/dL (0.55-1.3)
[2022-07-17 09:02] LABS: BILIRUBIN,TOTAL 0.7 mg/dL (0.2-1); TOT PROT 7.5 g/dl (6.4-8.2)
[2022-07-17] MEDS: ASPIRIN 81 MG CHEWABLE TABLETS PO SCH (09:41)
[2022-07-17] MEDS: SACUBITRIL/VALSARTAN 24 MG-26 MG TABLET PO SCH (09:41)
[2022-07-17] MEDS: CARVEDILOL 6.25 MG TABLET (FP) PO SCH (09:42)
[2022-07-17] MEDS: HEPARIN NA (PORCINE) 5,000 UNITS/ML 1ML VIAL SQ SCH (09:42)
[2022-07-17 13:43] VITALS: BP 116/48; PULSE 77; TEMP 98.1
== END 2022-07-17 14:28 | disposition home or self-care (01) | DRG 194 ==
LOC: JER 11:32 → JERBED 15:29 → J4W 07-16 16:38
PROVIDERS: ADMIT Internal Medicine; ATTEND Nurse Practitioner Acute Care
DX: I13.0 Hypertensive heart and chronic kidney disease with heart failure and stage 1 through stage 4 chronic kidney disease, or unspecified chronic kidney disease (principal); I42.0 Dilated cardiomyopathy; F01.50 Vascular dementia, unspecified severity, without behavioral disturbance, psychotic disturbance, mood disturbance, and anxiety; N18.9 Chronic kidney disease, unspecified; I50.43 Acute on chronic combined systolic (congestive) and diastolic (congestive) heart failure; E11.9 Type 2 diabetes mellitus without complications
CPT/HCPCS: 0241U-QW; 36415; 71045-TC-FY; 80053; 80061; 80307; 82607; 82962; 83036; 83735; 83880; 84100; 84443; 84484; 85025; 85610; 85730; 86780; 93005; 93010; 99285-25; J1644